=== PATIENT | female | born 1955 | race Caucasian/White ===

== ENCOUNTER 2017-11-25 14:53 | Inpatient (IN) | payer OTHER ==
[2017-11-25] MEDS ORDERED: Lactated Ringers 1,000 ML IV SCH (15:30)
--- NOTE | 2017-11-25 15:59 | CR ---
EXAMINATION: Two-view chest (PA and Lateral views). HISTORY: Shortness of breath. FINDINGS: The trachea is midline. The cardiomediastinal silhouette is within normal limits. No pulmonary infilt rates, effusions or pneumothorax. Mild interstitial prominence. Osseous structures appear unremarkable. IMPRESSION: No acute cardiopulmonary process.
[2017-11-25 16:11] LABS: CHLORIDE,CL 104 mmol/L (98-107); SODIUM,NA 141 mmol/L (136-145)
--- NOTE | 2017-11-25 16:17 | EDM.PDOC ---
ED HPI GENERAL MEDICAL PROBLEM - General Chief Complaint: Cardiovascular Problem Stated Complaint: SOB, RACING HEART Time Seen by Provider: 11/25/17 14:53 Source of Information: Reports: Patient History Limitations: Reports: No Limitations - History of Present Illness INITIAL COMMENTS - FREE TEXT/NARRATIVE: HISTORY AND PHYSICAL: History of present illness: [Patient comes to the emergency room complaining of shortness of breath and dizziness. Her symptoms have been going on for the past couple of months but have worsened over the past week. Her is also in the emergency room today with similar complaints. She reports they put a new furnace in their home in the past couple of months and they wonder if this could be contributing to her symptoms. Has had no fever or chills. No recent illness, infections or injuries. No headaches, runny nose or sore throat. No muscle aches or joint pain. Denies abdominal pain, nausea and vomiting. No rectal bleeding. Has had harder stools over the past couple of days, but no constipation. No diarrhea. Had one large dark black tarry sticky stool yesterday. No blood mixed in stool. History of anxiety for which she takes Paxil daily. She follows with Milli Parikh as needed. Smokes 1 ppd. ] Review of systems: As per history of present illness and below otherwise all systems reviewed and negative. Past medical history: As per history of present illness and as reviewed below otherwise noncontributory. Surgical history: As per history of present illness and as reviewed below otherwise noncontributory. Social history: No reported history of drug or alcohol abuse. Family history: As per history of present illness and as reviewed below otherwise noncontributory. Physical exam: HEENT: Atraumatic, normocephalic. Oral mucous membranes are pink and dry. Neck supple, no lymphadenopathy. Trachea midline. Lungs: Clear to auscultation, breath sounds equal bilaterally. Heart: S1S2, regular rhythm, rate 104. negative for clicks or murmur. Abdomen: Bowel sounds are normoactive throughout. Soft, nondistended, nontender. Negative for masses, guarding or rebound. No hepatosplenomegaly. Negative for costovertebral tenderness. Pelvis: Stable nontender. Genitourinary: Deferred. Rectal: Normal tone. Moderate amount of hard medium brown stool in vault. No blood in rectum. SFOB positive. Extremities: Atraumatic, no swelling or cyanosis to feet or lower legs. Neurovascular unremarkable. Neuro: Awake, alert, oriented. Motor and sensory unremarkable throughout. Exam nonfocal. Diagnostics: [CBC, CMP, UA, influenza swab, urine drug screen, EKG, chest x-ray, stool for occult blood, lactate, carboxyhemoglobin] Therapeutics: [1 L of lactated Ringer's at 500mL per hour] Impression: [anemia GI bleed] Plan: [Chest x-ray is clear. EKG shows sinus tachycardia with a rate of 104. Hemoglobin 6.3, white blood cell count 8.0. Potassium 3.0. Urine drug screen negative, urinalysis is unremarkable. Carboxyhemoglobin is a 8.5 which is within normal limits. Lactate 2.0. 2 units of PRBCs are ordered and pending at the time of this dictation. Orthostatic vital signs are pending. Patient's labs in condition reviewed with Dr. Cortez who agrees to accept patient to inpatient MedSurg unit. Patient is in agreement with today's discussion. All questions are answered and concerns are addressed.] Definitive disposition and diagnosis as appropriate pending reevaluation and review of above. - Related Data Allergies Allergy/AdvReac Type Severity Reaction Status Date / Time clarithromycin [From Biaxin] Allergy Other Verified 11/25/17 15:00 Penicillins Allergy Rash Verified 11/25/17 15:00 Home Meds: Home Meds PARoxetine [Paxil] 10 mg PO DAILY 11/25/17 [History] Past Medical History HEENT History: Reports: Impaired Vision Cardiovascular History: Reports: None Respiratory History: Reports: None Gastrointestinal History: Reports: None Genitourinary History: Reports: None SPINNING DOFFER History: Reports: None Musculoskeletal History: Reports: None Neurological History: Reports: None Psychiatric History: Reports: Anxiety Endocrine/Metabolic History: Reports: None Hematologic History: Reports: None Immunologic History: Reports: None Oncologic (Cancer) History: Reports: None Dermatologic History: Reports: None - Infectious Disease History Infectious Disease History: Reports: Chicken Pox, Measles - Past Surgical History Head Surgeries/Procedures: Reports: None HEENT Surgical History: Reports: None Cardiovascular Surgical History: Reports: None Respiratory Surgical History: Reports: None GI Surgical History: Reports: None Female Surgical History: Reports: Hysterectomy, Other (See Below) Other Female Surgeries/Procedures: ovarian cyst Endocrine Surgical History: Reports: None Neurological Surgical History: Reports: None Musculoskeletal Surgical History: Reports: None Oncologic Surgical History: Reports: None Dermatological Surgical History: Reports: None Social & Family History - Family History Family Medical History: Noncontributory - Tobacco Use Smoking Status *Q: Current Every Day Smoker Years of Tobacco use: 45 Packs/Tins Daily: 1 - Caffeine Use Caffeine Use: Reports: Energy Drinks - Recreational Drug Use Recreational Drug Use: No ED ROS GENERAL - Review of Systems Review Of Systems: ROS reveals no pertinent complaints other than HPI. ED EXAM, GENERAL - Physical Exam Exam: See Below Course - Vital Signs Last Recorded V/S: Last Vital Signs Temp 97.3 F 11/25/17 15:01 Pulse 93 11/25/17 16:30 Resp 20 11/25/17 16:30 BP 113/67 11/25/17 16:30 Pulse Ox 100 11/25/17 16:30 Orthostatic Blood Pressure [ 122/68 Standing] Orthostatic Blood Pressure [ 130/64 Sitting] Orthostatic Blood Pressure [ 124/81 Supine] - Orders/Labs/Meds Orders: Active Orders 24 hr Category Date Time Status EKG Documentation Completion [RC] STAT Care 11/25/17 15:02 Active Orthostatic Vital Signs [RC] ASDIRECTED Care 11/25/17 17:27 Active DRUG SCREEN, URINE [URCHEM] Stat Lab 11/25/17 16:31 Ordered INFLUENZA A+B AG SCREEN [RM] Stat Lab 11/25/17 16:33 Ordered RED BLOOD CELLS LP [BBK] Stat Lab 11/25/17 16:25 Results TYPE AND SCREEN [BBK] Stat Lab 11/25/17 16:25 Results UA W/O MICROSCOPIC [URIN] Stat Lab 11/25/17 16:31 Ordered Lactated Ringers [Ringers, Lactated] 1,000 ml Med 11/25/17 15:30 Active IV .BOLUS Transfuse PRBC [Transfuse Red Blood Cells] [COMM] Stat Oth 11/25/17 17:28 Ordered Medication Orders Lactated Ringer's (Ringers, Lactated) 1,000 mls @ 500 mls/hr IV .BOLUS KEYSHA Last Admin: 11/25/17 15:29 Dose: 500 mls/hr Labs: Laboratory Tests 11/25/17 11/25/17 11/25/17 Range/Units 15:20 15:20 15:20 WBC 8.01 (4.0-11.0) K/uL RBC 2.38 L (4.30-5.90) M/uL Hgb 6.3 L (12.0-16.0) g/dL Hct 19.4 L (36.0-46.0) % MCV 81.5 (80.0-98.0) fL MCH 26.5 L (27.0-32.0) pg MCHC 32.5 (31.0-37.0) g/dL RDW Std Deviation 42.8 (28.0-62.0) fl RDW Coeff of [place] 14 (11.0-15.0) % Plt Count 411 H (150-400) K/uL MPV 9.00 (7.40-12.00) fL Neut % (Auto) 72.7 (48.0-80.0) % Lymph % (Auto) 18.0 (16.0-40.0) % Iron % (Auto) 7.6 (0.0-15.0) % Eos % (Auto) 1.6 (0.0-7.0) % Baso % (Auto) 0.1 (0.0-1.5) % Neut # (Auto) 5.8 H (1.4-5.7) K/uL Lymph # (Auto) 1.4 (0.6-2.4) K/uL Iron # (Auto) 0.6 (0.0-0.8) K/uL Eos # (Auto) 0.1 (0.0-0.7) K/uL Baso # (Auto) 0.0 (0.0-0.1) K/uL Nucleated RBC % 0.0 /100WBC Nucleated RBCs # 0 K/uL ABG Carboxyhemoglobin 8.5 (0-15) % Lactate 2.0 (0.20-2.00) mmol/L Sodium 141 (136-145) mmol/L Potassium 3.0 L (3.5-5.1) mmol/L Chloride 104 (98-107) mmol/L Carbon Dioxide 23.4 (21.0-32.0) mmol/L BUN 17 (7.0-18.0) mg/dL Creatinine 0.8 (0.6-1.0) mg/dL Est Cr Clr Drug Dosing 66.10 mL/min Estimated GFR (MDRD) > 60.0 ml/min Glucose 113 H (74-106) mg/dL Calcium 9.0 (8.5-10.1) mg/dL Total Bilirubin 0.3 (0.2-1.0) mg/dL AST 13 L (15-37) IU/L ALT 16 (14-63) IU/L Alkaline Phosphatase 62 (46-116) U/L Total Protein 5.9 L (6.4-8.2) g/dL Albumin 3.0 L (3.4-5.0) g/dL Globulin 2.9 (2.0-3.5) g/dL Albumin/Globulin Ratio 1.0 L (1.3-2.8) Urine Color Urine Appearance Urine pH (5.0-8.0) Ur Specific [place] (1.001-1.035) Urine Protein (NEGATIVE) mg/dL Urine Glucose (UA) (NEGATIVE) mg/dL Urine Ketones (NEGATIVE) mg/dL Urine Occult Blood (NEGATIVE) Urine Nitrite (NEGATIVE) Urine Bilirubin (NEGATIVE) Urine Urobilinogen (<2.0) EU/dL Ur Leukocyte Esterase (NEGATIVE) Urine Opiates Screen (NEGATIVE) Ur Oxycodone Screen (NEGATIVE) Urine Methadone Screen (NEGATIVE) Ur Barbiturates Screen (NEGATIVE) Ur Phencyclidine Scrn (NEGATIVE) Ur Amphetamine Screen (NEGATIVE) U Methamphetamines Scrn (NEGATIVE) U Benzodiazepines Scrn (NEGATIVE) U Cocaine Metab Screen (NEGATIVE) U Marijuana (THC) Screen (NEGATIVE) Blood Type Antibody Screen Crossmatch 11/25/17 11/25/17 11/25/17 Range/Units 16:25 16:31 16:31 WBC (4.0-11.0) K/uL RBC (4.30-5.90) M/uL Hgb (12.0-16.0) g/dL Hct (36.0-46.0) % MCV (80.0-98.0) fL MCH (27.0-32.0) pg MCHC (31.0-37.0) g/dL RDW Std Deviation (28.0-62.0) fl RDW Coeff of [place] (11.0-15.0) % Plt Count (150-400) K/uL MPV (7.40-12.00) fL Neut % (Auto) (48.0-80.0) % Lymph % (Auto) (16.0-40.0) % Iron % (Auto) (0.0-15.0) % Eos % (Auto) (0.0-7.0) % Baso % (Auto) (0.0-1.5) % Neut # (Auto) (1.4-5.7) K/uL Lymph # (Auto) (0.6-2.4) K/uL Iron # (Auto) (0.0-0.8) K/uL Eos # (Auto) (0.0-0.7) K/uL Baso # (Auto) (0.0-0.1) K/uL Nucleated RBC % /100WBC Nucleated RBCs # K/uL ABG Carboxyhemoglobin (0-15) % Lactate (0.20-2.00) mmol/L Sodium (136-145) mmol/L Potassium (3.5-5.1) mmol/L Chloride (98-107) mmol/L Carbon Dioxide (21.0-32.0) mmol/L BUN (7.0-18.0) mg/dL Creatinine (0.6-1.0) mg/dL Est Cr Clr Drug Dosing mL/min Estimated GFR (MDRD) ml/min Glucose (74-106) mg/dL Calcium (8.5-10.1) mg/dL Total Bilirubin (0.2-1.0) mg/dL AST (15-37) IU/L ALT (14-63) IU/L Alkaline Phosphatase (46-116) U/L Total Protein (6.4-8.2) g/dL Albumin (3.4-5.0) g/dL Globulin (2.0-3.5) g/dL Albumin/Globulin Ratio (1.3-2.8) Urine Color YELLOW Urine Appearance SLT CLOUDY Urine pH 5.5 (5.0-8.0) Ur Specific [place] 1.020 (1.001-1.035) Urine Protein NEGATIVE (NEGATIVE) mg/dL Urine Glucose (UA) NEGATIVE (NEGATIVE) mg/dL Urine Ketones NEGATIVE (NEGATIVE) mg/dL Urine Occult Blood TRACE-INTACT (NEGATIVE) Urine Nitrite NEGATIVE (NEGATIVE) Urine Bilirubin NEGATIVE (NEGATIVE) Urine Urobilinogen 0.2 (<2.0) EU/dL Ur Leukocyte Esterase SMALL (NEGATIVE) Urine Opiates Screen NEGATIVE (NEGATIVE) Ur Oxycodone Screen NEGATIVE (NEGATIVE) Urine Methadone Screen NEGATIVE (NEGATIVE) Ur Barbiturates Screen NEGATIVE (NEGATIVE) Ur Phencyclidine Scrn NEGATIVE (NEGATIVE) Ur Amphetamine Screen NEGATIVE (NEGATIVE) U Methamphetamines Scrn NEGATIVE (NEGATIVE) U Benzodiazepines Scrn NEGATIVE (NEGATIVE) U Cocaine Metab Screen NEGATIVE (NEGATIVE) U Marijuana (THC) Screen NEGATIVE (NEGATIVE) Blood Type A POSITIVE Antibody Screen NEGATIVE Crossmatch See Detail Meds: Medications Generic Name Dose Route Start Last Admin Trade Name Freq PRN Reason Stop Dose Admin Lactated Ringer's 1,000 mls @ 500 mls/hr 11/25/17 15:30 11/25/17 15:29 Ringers, Lactated IV 500 mls/hr .BOLUS KEYSHA Administration Departure - Departure Time of Disposition: 17:45 Disposition: Admitted As Inpatient 67 Condition: Good Clinical Impression: Anemia, GI bleed - My Orders Last 24 Hours: My Active Orders 11/25/17 15:02 EKG Documentation Completion [RC] STAT 11/25/17 15:30 Lactated Ringers [Ringers, Lactated] 1,000 ml IV .BOLUS 11/25/17 16:25 RED BLOOD CELLS LP [BBK] Stat TYPE AND SCREEN [BBK] Stat 11/25/17 16:31 DRUG SCREEN, URINE [URCHEM] Stat UA W/O MICROSCOPIC [URIN] Stat 11/25/17 16:33 INFLUENZA A+B AG SCREEN [RM] Stat 11/25/17 17:27 Orthostatic Vital Signs [RC] ASDIRECTED 11/25/17 17:28 Transfuse PRBC [Transfuse Red Blood Cells] [COMM] Stat - Assessment/Plan Last 24 Hours: My Active Orders 11/25/17 15:02 EKG Documentation Completion [RC] STAT 11/25/17 15:30 Lactated Ringers [Ringers, Lactated] 1,000 ml IV .BOLUS 11/25/17 16:25 RED BLOOD CELLS LP [BBK] Stat TYPE AND SCREEN [BBK] Stat 11/25/17 16:31 DRUG SCREEN, URINE [URCHEM] Stat UA W/O MICROSCOPIC [URIN] Stat 11/25/17 16:33 INFLUENZA A+B AG SCREEN [RM] Stat 11/25/17 17:27 Orthostatic Vital Signs [RC] ASDIRECTED 11/25/17 17:28 Transfuse PRBC [Transfuse Red Blood Cells] [COMM] Stat
[2017-11-25] MEDS ORDERED: Pantoprazole 40 MG Vial IVPUSH ONE (18:05)
[2017-11-25] MEDS ORDERED: Sodium Chloride 0.9% with KCl 1,000 ML IV SCH (18:15)
--- NOTE | 2017-11-25 18:18 | PCM.HP ---
H&P History of Present Illness - General Admit Problem/Dx: Admission Diagnosis/Problem Admission Diagnosis/Problem Anemia - History of Present Illness Initial Comments - Free Text/Narative: 62 yo female who presents with dizziness, shortness of breath and palpitations. She reported a large dark tarry stool yesterday. She denies any abdominal pain, nausea or vomiting. She admits to taking aspirin occasionally. She denies any alcohol use. She has never had endoscopy. She was noted in the ED to have a Hgb of 6.1. She has a history of anxiety disorder and reports she is quite anxious about being admitted to the hospital. - Related Data Allergies/Adverse Reactions: Allergies Allergy/AdvReac Type Severity Reaction Status Date / Time clarithromycin [From Biaxin] Allergy Other Verified 11/25/17 15:00 Penicillins Allergy Rash Verified 11/25/17 15:00 Home Medications: Home Meds LORazepam 1 mg PO BID PRN 11/25/17 [History] PARoxetine [Paxil] 10 mg PO DAILY 11/25/17 [History] Past Medical History HEENT History: Reports: Impaired Vision Cardiovascular History: Reports: None Respiratory History: Reports: None Gastrointestinal History: Reports: None Genitourinary History: Reports: None UX DESIGN LEAD History: Reports: None Musculoskeletal History: Reports: None Neurological History: Reports: None Psychiatric History: Reports: Anxiety Endocrine/Metabolic History: Reports: None Hematologic History: Reports: None Immunologic History: Reports: None Oncologic (Cancer) History: Reports: None Dermatologic History: Reports: None - Infectious Disease History Infectious Disease History: Reports: Chicken Pox, Measles - Past Surgical History Head Surgeries/Procedures: Reports: None HEENT Surgical History: Reports: None Cardiovascular Surgical History: Reports: None Respiratory Surgical History: Reports: None GI Surgical History: Reports: None Female Surgical History: Reports: Hysterectomy, Other (See Below) Other Female Surgeries/Procedures: ovarian cyst Endocrine Surgical History: Reports: None Neurological Surgical History: Reports: None Musculoskeletal Surgical History: Reports: None Oncologic Surgical History: Reports: None Dermatological Surgical History: Reports: None Social & Family History - Family History Family Medical History: Noncontributory - Tobacco Use Smoking Status *Q: Current Every Day Smoker Years of Tobacco use: 45 Packs/Tins Daily: 1 - Caffeine Use Caffeine Use: Reports: Energy Drinks - Recreational Drug Use Recreational Drug Use: No H&P Review of Systems - Review of Systems: Review Of Systems: ROS reveals no pertinent complaints other than HPI. Exam - Exam Exam: See Below - Vital Signs Vital Signs: Last Vital Signs Temp 36.3 C 11/25/17 15:01 Pulse 93 11/25/17 16:30 Resp 20 11/25/17 16:30 BP 113/67 11/25/17 16:30 Pulse Ox 100 11/25/17 16:30 Orthostatic Blood Pressure [ 122/68 Standing] Orthostatic Blood Pressure [ 130/64 Sitting] Orthostatic Blood Pressure [ 124/81 Supine] Weight: 56.699 kg - Exam General: Alert, Oriented HEENT: Mucosa Moist & [place] Lungs: Clear to Auscultation, Normal Respiratory Effort Cardiovascular: Regular Rate, Regular Rhythm GI/Abdominal Exam: Soft, Non-Tender Extremities: Non-Tender, No Pedal Edema Skin: Warm, Dry, Intact - Patient Data Lab Results Last 24 hrs: Laboratory Results - last 24 hr 11/25/17 11/25/17 11/25/17 Range/Units 15:20 15:20 15:20 WBC 8.01 (4.0-11.0) K/uL RBC 2.38 L (4.30-5.90) M/uL Hgb 6.3 L (12.0-16.0) g/dL Hct 19.4 L (36.0-46.0) % MCV 81.5 (80.0-98.0) fL MCH 26.5 L (27.0-32.0) pg MCHC 32.5 (31.0-37.0) g/dL RDW Std Deviation 42.8 (28.0-62.0) fl RDW Coeff of [place] 14 (11.0-15.0) % Plt Count 411 H (150-400) K/uL MPV 9.00 (7.40-12.00) fL Neut % (Auto) 72.7 (48.0-80.0) % Lymph % (Auto) 18.0 (16.0-40.0) % [place] % (Auto) 7.6 (0.0-15.0) % Eos % (Auto) 1.6 (0.0-7.0) % Baso % (Auto) 0.1 (0.0-1.5) % Neut # (Auto) 5.8 H (1.4-5.7) K/uL Lymph # (Auto) 1.4 (0.6-2.4) K/uL [place] # (Auto) 0.6 (0.0-0.8) K/uL Eos # (Auto) 0.1 (0.0-0.7) K/uL Baso # (Auto) 0.0 (0.0-0.1) K/uL Nucleated RBC % 0.0 /100WBC Nucleated RBCs # 0 K/uL ABG Carboxyhemoglobin 8.5 (0-15) % Lactate 2.0 (0.20-2.00) mmol/L Sodium 141 (136-145) mmol/L Potassium 3.0 L (3.5-5.1) mmol/L Chloride 104 (98-107) mmol/L Carbon Dioxide 23.4 (21.0-32.0) mmol/L BUN 17 (7.0-18.0) mg/dL Creatinine 0.8 (0.6-1.0) mg/dL Est Cr Clr Drug Dosing 66.10 mL/min Estimated GFR (MDRD) > 60.0 ml/min Glucose 113 H (74-106) mg/dL Calcium 9.0 (8.5-10.1) mg/dL Total Bilirubin 0.3 (0.2-1.0) mg/dL AST 13 L (15-37) IU/L ALT 16 (14-63) IU/L Alkaline Phosphatase 62 (46-116) U/L Total Protein 5.9 L (6.4-8.2) g/dL Albumin 3.0 L (3.4-5.0) g/dL Globulin 2.9 (2.0-3.5) g/dL Albumin/Globulin Ratio 1.0 L (1.3-2.8) Urine Color Urine Appearance Urine pH (5.0-8.0) Ur Specific [place] (1.001-1.035) Urine Protein (NEGATIVE) mg/dL Urine Glucose (UA) (NEGATIVE) mg/dL Urine Ketones (NEGATIVE) mg/dL Urine Occult Blood (NEGATIVE) Urine Nitrite (NEGATIVE) Urine Bilirubin (NEGATIVE) Urine Urobilinogen (<2.0) EU/dL Ur Leukocyte Esterase (NEGATIVE) Urine Opiates Screen (NEGATIVE) Ur Oxycodone Screen (NEGATIVE) Urine Methadone Screen (NEGATIVE) Ur Barbiturates Screen (NEGATIVE) Ur Phencyclidine Scrn (NEGATIVE) Ur Amphetamine Screen (NEGATIVE) U Methamphetamines Scrn (NEGATIVE) U Benzodiazepines Scrn (NEGATIVE) U Cocaine Metab Screen (NEGATIVE) U Marijuana (THC) Screen (NEGATIVE) Blood Type Antibody Screen Crossmatch 11/25/17 11/25/17 11/25/17 Range/Units 16:25 16:31 16:31 WBC (4.0-11.0) K/uL RBC (4.30-5.90) M/uL Hgb (12.0-16.0) g/dL Hct (36.0-46.0) % MCV (80.0-98.0) fL MCH (27.0-32.0) pg MCHC (31.0-37.0) g/dL RDW Std Deviation (28.0-62.0) fl RDW Coeff of [place] (11.0-15.0) % Plt Count (150-400) K/uL MPV (7.40-12.00) fL Neut % (Auto) (48.0-80.0) % Lymph % (Auto) (16.0-40.0) % [place] % (Auto) (0.0-15.0) % Eos % (Auto) (0.0-7.0) % Baso % (Auto) (0.0-1.5) % Neut # (Auto) (1.4-5.7) K/uL Lymph # (Auto) (0.6-2.4) K/uL [place] # (Auto) (0.0-0.8) K/uL Eos # (Auto) (0.0-0.7) K/uL Baso # (Auto) (0.0-0.1) K/uL Nucleated RBC % /100WBC Nucleated RBCs # K/uL ABG Carboxyhemoglobin (0-15) % Lactate (0.20-2.00) mmol/L Sodium (136-145) mmol/L Potassium (3.5-5.1) mmol/L Chloride (98-107) mmol/L Carbon Dioxide (21.0-32.0) mmol/L BUN (7.0-18.0) mg/dL Creatinine (0.6-1.0) mg/dL Est Cr Clr Drug Dosing mL/min Estimated GFR (MDRD) ml/min Glucose (74-106) mg/dL Calcium (8.5-10.1) mg/dL Total Bilirubin (0.2-1.0) mg/dL AST (15-37) IU/L ALT (14-63) IU/L Alkaline Phosphatase (46-116) U/L Total Protein (6.4-8.2) g/dL Albumin (3.4-5.0) g/dL Globulin (2.0-3.5) g/dL Albumin/Globulin Ratio (1.3-2.8) Urine Color YELLOW Urine Appearance SLT CLOUDY Urine pH 5.5 (5.0-8.0) Ur Specific [place] 1.020 (1.001-1.035) Urine Protein NEGATIVE (NEGATIVE) mg/dL Urine Glucose (UA) NEGATIVE (NEGATIVE) mg/dL Urine Ketones NEGATIVE (NEGATIVE) mg/dL Urine Occult Blood TRACE-INTACT (NEGATIVE) Urine Nitrite NEGATIVE (NEGATIVE) Urine Bilirubin NEGATIVE (NEGATIVE) Urine Urobilinogen 0.2 (<2.0) EU/dL Ur Leukocyte Esterase SMALL (NEGATIVE) Urine Opiates Screen NEGATIVE (NEGATIVE) Ur Oxycodone Screen NEGATIVE (NEGATIVE) Urine Methadone Screen NEGATIVE (NEGATIVE) Ur Barbiturates Screen NEGATIVE (NEGATIVE) Ur Phencyclidine Scrn NEGATIVE (NEGATIVE) Ur Amphetamine Screen NEGATIVE (NEGATIVE) U Methamphetamines Scrn NEGATIVE (NEGATIVE) U Benzodiazepines Scrn NEGATIVE (NEGATIVE) U Cocaine Metab Screen NEGATIVE (NEGATIVE) U Marijuana (THC) Screen NEGATIVE (NEGATIVE) Blood Type A POSITIVE Antibody Screen NEGATIVE Crossmatch See Detail Result Diagrams: 11/25/17 15:20 11/25/17 15:20 Phuc Results Last 24 hrs: Microbiology 11/25/17 16:33 Influenza Type A Antigen Screen - Final Nasopharyngeal Swab NEGATIVE INFLUENZA A VIRUS AG Influenza Type B Antigen Screen - Final NEGATIVE INFLUENZA B VIRUS AG Problem List Initiated/Reviewed/Updated: Yes Orders Last 24hrs: Active Orders 24 hr Category Date Time Status Patient Status [ADT] Stat ADT 11/25/17 17:36 Active EKG Documentation Completion [RC] STAT Care 11/25/17 15:02 Active Notify Provider Consults [RC] ASDIRECTED Care 11/25/17 18:12 Ordered Orthostatic Vital Signs [RC] ASDIRECTED Care 11/25/17 17:27 Active Oxygen Therapy [RC] PRN Care 11/25/17 18:11 Ordered Up ad [place] [RC] ASDIRECTED Care 11/25/17 18:11 Ordered VTE/DVT Education [RC] PER UNIT ROUTINE Care 11/25/17 18:11 Ordered Vital Signs [RC] Q4H Care 11/25/17 18:11 Ordered Consult to Physician [CONS] Routine Cons 11/25/17 18:11 Ordered Nothing per Oral Now Diet [DIET] Diet 11/25/17 Breakfast Ordered CBC W/O DIFF,HEMOGRAM [HEME] AM Lab 11/26/17 05:11 Ordered COMPREHENSIVE METABOLIC PN,CMP [CHEM] AM Lab 11/26/17 05:11 Ordered DRUG SCREEN, URINE [URCHEM] Stat Lab 11/25/17 16:31 Ordered HGB [HEMOGLOBIN] [HEME] Routine Lab 11/25/17 22:00 Ordered INFLUENZA A+B AG SCREEN [RM] Stat Lab 11/25/17 16:33 Ordered RED BLOOD CELLS LP [BBK] Stat Lab 11/25/17 16:25 Results TYPE AND SCREEN [BBK] Stat Lab 11/25/17 16:25 Results UA W/O MICROSCOPIC [URIN] Stat Lab 11/25/17 16:31 Ordered LORazepam [Ativan] Med 11/25/17 18:13 Ordered 0.5 mg IVPUSH Q4H PRN Lactated Ringers [Ringers, Lactated] 1,000 ml Med 11/25/17 15:30 Active IV .BOLUS Pantoprazole [ProTONIX IV] 80 mg Med 11/25/17 18:15 Ordered Sodium Chloride 0.9% [Normal Saline] 100 ml IV Q10H Sodium Chloride 0.9% with KCl 40 mEq @ Enter Rate (1000 Med 11/25/17 18:15 Ordered mL) Sodium Chloride 0.9% with KCl [Normal Saline with 40 mEq KCl] 1,000 ml IV ASDIRECTED Sucralfate [Carafate] Med 11/25/17 18:15 Ordered 1 gm PO Q6H Sequential Compression Device [OM.PC] Per Unit Routine Oth 11/25/17 18:11 Ordered Transfuse PRBC [Transfuse Red Blood Cells] [COMM] Stat Oth 11/25/17 17:28 Ordered Resuscitation Status Routine Resus Stat 11/25/17 18:11 Ordered Medication Orders Lactated Ringer's (Ringers, Lactated) 1,000 mls @ 500 mls/hr IV .BOLUS [facility] Last Admin: 11/25/17 15:29 Dose: 500 mls/hr Pantoprazole Sodium 80 mg/ (Sodium Chloride) 100 mls @ 10 mls/hr IV Q10H KEYSHA Potassium Chloride/Sodium Chloride (Normal Saline With 40 Meq Kcl) 1,000 mls @ 150 mls/hr IV ASDIRECTED [facility] Stop: 11/26/17 00:54 Sucralfate (Carafate) 1 gm PO Q6H [facility] Assessment/Plan Comment:: 62 yo female with suspect upper GI bleed, anemia from acute bleed, and hypokalemia. Dr. Cowan has been consulted regarding EGD. We will transfuse two units of pRBC and follow her Hgb. We will treat with protonix drip and carafate. We will replace her potassium. Patient is NPO.
[2017-11-25] MEDS: Sucralfate Suspension 1 GM/10 ML Cup PO SCH ×2 (18:42→23:44)
--- NOTE | 2017-11-25 19:03 | PCM.CONS ---
<Lacho Rubi Francois - Last Filed: 11/25/17 19:55> H&P History of Present Illness - General Date of Service: 11/25/17 Admit Problem/Dx: Admission Diagnosis/Problem Admission Diagnosis/Problem Anemia Source of Information: Patient, Family, Provider - History of Present Illness Initial Comments - Free Text/Narative: Mrs. Meier is a 62 yr old female who presented to the ER earlier today with her for symptoms of dizziness, nausea, and racing of her heart. These symptoms have been going on for about 1 week. There was nothing specific that changed today. She has also noted ongoing fatigue and SOB with exertion over the past week. She is unable to ambulate around her home without becoming short of breath. She did have a small bout of emesis without any blood appreciated. She recently noted darker stools that have been harder than normal. No bright red blood in her stool. Stools have been dark brown/black. She is passing flatus and denies diarrhea. Endorses history of heartburn. She has never had an endoscopy or colonoscopy before. She denies any abdominal pain. Denies frequent use of NSAIDs or blood thinners. She endorses being under a significant amount of stress in the last few months. She correlates this with her of 40+ yrs being diagnosed with lung cancer. - Related Data Allergies/Adverse Reactions: Allergies Allergy/AdvReac Type Severity Reaction Status Date / Time clarithromycin [From Biaxin] Allergy Other Verified 11/25/17 15:00 Penicillins Allergy Rash Verified 11/25/17 15:00 Home Medications: Home Meds LORazepam 1 mg PO BID PRN 11/25/17 [History] PARoxetine [Paxil] 10 mg PO DAILY 11/25/17 [History] Past Medical History HEENT History: Reports: Impaired Vision Cardiovascular History: Reports: None Respiratory History: Reports: None Gastrointestinal History: Reports: None Genitourinary History: Reports: None MAINTENANCE MAN History: Reports: None Musculoskeletal History: Reports: None Neurological History: Reports: None Psychiatric History: Reports: Anxiety Endocrine/Metabolic History: Reports: None Hematologic History: Reports: None Immunologic History: Reports: None Oncologic (Cancer) History: Reports: None Dermatologic History: Reports: None - Infectious Disease History Infectious Disease History: Reports: Chicken Pox, Measles - Past Surgical History Head Surgeries/Procedures: Reports: None (Prior abdominal hysterectomy for cystic disease.) HEENT Surgical History: Reports: None Cardiovascular Surgical History: Reports: None Respiratory Surgical History: Reports: None GI Surgical History: Reports: None Female Surgical History: Reports: Hysterectomy, Other (See Below) Other Female Surgeries/Procedures: ovarian cyst Endocrine Surgical History: Reports: None Neurological Surgical History: Reports: None Musculoskeletal Surgical History: Reports: None Oncologic Surgical History: Reports: None Dermatological Surgical History: Reports: None - History Comment History Comment: History of anxiety. Denies any prior cardiac or pulmonary diseases or problems. No hisotry of diabetes or HTN. Social & Family History - Family History Family Medical History: Noncontributory (Denies any known bleeding disorders. No known history of GI problems or GI malignancy.) - Tobacco Use Smoking Status *Q: Current Every Day Smoker Years of Tobacco use: 45 Packs/Tins Daily: 1 - Caffeine Use Caffeine Use: Reports: Energy Drinks - Recreational Drug Use Recreational Drug Use: No H&P Review of Systems - Review of Systems: Review Of Systems: See Below General: Reports: Weakness, Fatigue, Decreased Appetite, Other (Intentional weight loss. ) Pulmonary: Reports: Shortness of Breath Cardiovascular: Reports: Palpitations, Dyspnea on Exertion Gastrointestinal: Reports: Black Stool, Constipation, Nausea Musculoskeletal: Reports: Foot Pain Psychiatric: Reports: Anxiety Neurological: Reports: Dizziness, Weakness Hematologic/Lymphatic: Reports: Other (Denies easy bruising, known bleeding disorders, or taking blooding thinners other than aspirin. ) Exam - Exam Exam: See Below - Vital Signs Vital Signs: Last Vital Signs Temp 36.3 C 11/25/17 15:01 Pulse 93 11/25/17 16:30 Resp 20 11/25/17 16:30 BP 113/67 11/25/17 16:30 Pulse Ox 100 11/25/17 16:30 Orthostatic Blood Pressure [ 122/68 Standing] Orthostatic Blood Pressure [ 130/64 Sitting] Orthostatic Blood Pressure [ 124/81 Supine] Weight: 125 lb - Exam General: Alert, Oriented, Other (Midly anxious with pressured speech. ) HEENT: EOMI, Pupils Equal Neck: Supple, Trachea Midline Lungs: Clear to Auscultation, Normal Respiratory Effort Cardiovascular: Regular Rate, Regular Rhythm GI/Abdominal Exam: Soft, Non-Tender, No Distention, No Mass, Other (Prior midline laparotomy scar, well healed. ) Extremities: Normal Range of Motion, Non-Tender, No Pedal Edema Skin: Warm, Dry, Intact Psychiatric: Anxious - Patient Data Lab Results Last 24 hrs: Laboratory Results - last 24 hr 11/25/17 11/25/17 11/25/17 Range/Units 15:20 15:20 15:20 WBC 8.01 (4.0-11.0) K/uL RBC 2.38 L (4.30-5.90) M/uL Hgb 6.3 L (12.0-16.0) g/dL Hct 19.4 L (36.0-46.0) % MCV 81.5 (80.0-98.0) fL MCH 26.5 L (27.0-32.0) pg MCHC 32.5 (31.0-37.0) g/dL RDW Std Deviation 42.8 (28.0-62.0) fl RDW Coeff of [place] 14 (11.0-15.0) % Plt Count 411 H (150-400) K/uL MPV 9.00 (7.40-12.00) fL Neut % (Auto) 72.7 (48.0-80.0) % Lymph % (Auto) 18.0 (16.0-40.0) % [place] % (Auto) 7.6 (0.0-15.0) % Eos % (Auto) 1.6 (0.0-7.0) % Baso % (Auto) 0.1 (0.0-1.5) % Neut # (Auto) 5.8 H (1.4-5.7) K/uL Lymph # (Auto) 1.4 (0.6-2.4) K/uL [place] # (Auto) 0.6 (0.0-0.8) K/uL Eos # (Auto) 0.1 (0.0-0.7) K/uL Baso # (Auto) 0.0 (0.0-0.1) K/uL Nucleated RBC % 0.0 /100WBC Nucleated RBCs # 0 K/uL ABG Carboxyhemoglobin 8.5 (0-15) % Lactate 2.0 (0.20-2.00) mmol/L Sodium 141 (136-145) mmol/L Potassium 3.0 L (3.5-5.1) mmol/L Chloride 104 (98-107) mmol/L Carbon Dioxide 23.4 (21.0-32.0) mmol/L BUN 17 (7.0-18.0) mg/dL Creatinine 0.8 (0.6-1.0) mg/dL Est Cr Clr Drug Dosing 66.10 mL/min Estimated GFR (MDRD) > 60.0 ml/min Glucose 113 H (74-106) mg/dL Calcium 9.0 (8.5-10.1) mg/dL Total Bilirubin 0.3 (0.2-1.0) mg/dL AST 13 L (15-37) IU/L ALT 16 (14-63) IU/L Alkaline Phosphatase 62 (46-116) U/L Total Protein 5.9 L (6.4-8.2) g/dL Albumin 3.0 L (3.4-5.0) g/dL Globulin 2.9 (2.0-3.5) g/dL Albumin/Globulin Ratio 1.0 L (1.3-2.8) Urine Color Urine Appearance Urine pH (5.0-8.0) Ur Specific [place] (1.001-1.035) Urine Protein (NEGATIVE) mg/dL Urine Glucose (UA) (NEGATIVE) mg/dL Urine Ketones (NEGATIVE) mg/dL Urine Occult Blood (NEGATIVE) Urine Nitrite (NEGATIVE) Urine Bilirubin (NEGATIVE) Urine Urobilinogen (<2.0) EU/dL Ur Leukocyte Esterase (NEGATIVE) Urine Opiates Screen (NEGATIVE) Ur Oxycodone Screen (NEGATIVE) Urine Methadone Screen (NEGATIVE) Ur Barbiturates Screen (NEGATIVE) Ur Phencyclidine Scrn (NEGATIVE) Ur Amphetamine Screen (NEGATIVE) U Methamphetamines Scrn (NEGATIVE) U Benzodiazepines Scrn (NEGATIVE) U Cocaine Metab Screen (NEGATIVE) U Marijuana (THC) Screen (NEGATIVE) Blood Type Antibody Screen Crossmatch 11/25/17 11/25/17 11/25/17 Range/Units 16:25 16:31 16:31 WBC (4.0-11.0) K/uL RBC (4.30-5.90) M/uL Hgb (12.0-16.0) g/dL Hct (36.0-46.0) % MCV (80.0-98.0) fL MCH (27.0-32.0) pg MCHC (31.0-37.0) g/dL RDW Std Deviation (28.0-62.0) fl RDW Coeff of [place] (11.0-15.0) % Plt Count (150-400) K/uL MPV (7.40-12.00) fL Neut % (Auto) (48.0-80.0) % Lymph % (Auto) (16.0-40.0) % [place] % (Auto) (0.0-15.0) % Eos % (Auto) (0.0-7.0) % Baso % (Auto) (0.0-1.5) % Neut # (Auto) (1.4-5.7) K/uL Lymph # (Auto) (0.6-2.4) K/uL [place] # (Auto) (0.0-0.8) K/uL Eos # (Auto) (0.0-0.7) K/uL Baso # (Auto) (0.0-0.1) K/uL Nucleated RBC % /100WBC Nucleated RBCs # K/uL ABG Carboxyhemoglobin (0-15) % Lactate (0.20-2.00) mmol/L Sodium (136-145) mmol/L Potassium (3.5-5.1) mmol/L Chloride (98-107) mmol/L Carbon Dioxide (21.0-32.0) mmol/L BUN (7.0-18.0) mg/dL Creatinine (0.6-1.0) mg/dL Est Cr Clr Drug Dosing mL/min Estimated GFR (MDRD) ml/min Glucose (74-106) mg/dL Calcium (8.5-10.1) mg/dL Total Bilirubin (0.2-1.0) mg/dL AST (15-37) IU/L ALT (14-63) IU/L Alkaline Phosphatase (46-116) U/L Total Protein (6.4-8.2) g/dL Albumin (3.4-5.0) g/dL Globulin (2.0-3.5) g/dL Albumin/Globulin Ratio (1.3-2.8) Urine Color YELLOW Urine Appearance SLT CLOUDY Urine pH 5.5 (5.0-8.0) Ur Specific [place] 1.020 (1.001-1.035) Urine Protein NEGATIVE (NEGATIVE) mg/dL Urine Glucose (UA) NEGATIVE (NEGATIVE) mg/dL Urine Ketones NEGATIVE (NEGATIVE) mg/dL Urine Occult Blood TRACE-INTACT (NEGATIVE) Urine Nitrite NEGATIVE (NEGATIVE) Urine Bilirubin NEGATIVE (NEGATIVE) Urine Urobilinogen 0.2 (<2.0) EU/dL Ur Leukocyte Esterase SMALL (NEGATIVE) Urine Opiates Screen NEGATIVE (NEGATIVE) Ur Oxycodone Screen NEGATIVE (NEGATIVE) Urine Methadone Screen NEGATIVE (NEGATIVE) Ur Barbiturates Screen NEGATIVE (NEGATIVE) Ur Phencyclidine Scrn NEGATIVE (NEGATIVE) Ur Amphetamine Screen NEGATIVE (NEGATIVE) U Methamphetamines Scrn NEGATIVE (NEGATIVE) U Benzodiazepines Scrn NEGATIVE (NEGATIVE) U Cocaine Metab Screen NEGATIVE (NEGATIVE) U Marijuana (THC) Screen NEGATIVE (NEGATIVE) Blood Type A POSITIVE Antibody Screen NEGATIVE Crossmatch See Detail Result Diagrams: 11/25/17 15:20 11/25/17 15:20 Phuc Results Last 24 hrs: Microbiology 11/25/17 16:33 Influenza Type A Antigen Screen - Final Nasopharyngeal Swab NEGATIVE INFLUENZA A VIRUS AG Influenza Type B Antigen Screen - Final NEGATIVE INFLUENZA B VIRUS AG Consult PN Assessment/Plan Procedures: Procedures CT ABD & PELV 1/> REGNS (08/30/14) MRI LUMBAR SPINE W/O DYE (05/01/17) (1) Anemia SNOMED Code(s): 620580066 Code(s): D64.9 - ANEMIA, UNSPECIFIED Current Visit: Yes Comment: Suspected acute blood loss anemia secondary to an upper GI source. This may be either gastritis or an ulcer. At this time she has no active signs of bleeding. She is hemodynamically stable without tachycardia. She is not hypotensive. She is symptomatic. Admission HGB was 6.3. Plans to recieve 2 units RBCs. Problem List Initiated/Reviewed/Updated: Yes Plan: Continue cares per medicine primary. Full liquid diet okay now. NPO at midnight. Continue IVF. Trend hemoglobins and monitor hemodynamics closely. Based on the hydration she will be receiving, consider additional two units of RBCs on top of what is already ordered. If she remains stable overnight, plan for upper endoscopy 11/26/[address] Cowan. Risks and goals reviewed, consent obtained from patient. Requesting Provider: Dr. Cortez Date Consult Requested: 11/25/17 Reason for Consult: Concern for GI Bleed Patient History Reviewed: Yes Admission H&P Reviewed: Yes <Ajay Cowan - Last Filed: 11/25/17 20:14> H&P History of Present Illness - General Admit Problem/Dx: Admission Diagnosis/Problem Admission Diagnosis/Problem Anemia Exam - Vital Signs Vital Signs: Last Vital Signs Temp 97.6 F 11/25/17 20:06 Pulse 87 11/25/17 20:06 Resp 18 11/25/17 20:06 BP 125/64 11/25/17 20:06 Pulse Ox 99 11/25/17 20:06 Orthostatic Blood Pressure [ 106/59 Standing] Orthostatic Blood Pressure [ 108/57 Sitting] Orthostatic Blood Pressure [ 114/60 Supine] - Patient Data Lab Results Last 24 hrs: Laboratory Results - last 24 hr 11/25/17 11/25/17 11/25/17 Range/Units 15:20 15:20 15:20 WBC 8.01 (4.0-11.0) K/uL RBC 2.38 L (4.30-5.90) M/uL Hgb 6.3 L (12.0-16.0) g/dL Hct 19.4 L (36.0-46.0) % MCV 81.5 (80.0-98.0) fL MCH 26.5 L (27.0-32.0) pg MCHC 32.5 (31.0-37.0) g/dL RDW Std Deviation 42.8 (28.0-62.0) fl RDW Coeff of [place] 14 (11.0-15.0) % Plt Count 411 H (150-400) K/uL MPV 9.00 (7.40-12.00) fL Neut % (Auto) 72.7 (48.0-80.0) % Lymph % (Auto) 18.0 (16.0-40.0) % [place] % (Auto) 7.6 (0.0-15.0) % Eos % (Auto) 1.6 (0.0-7.0) % Baso % (Auto) 0.1 (0.0-1.5) % Neut # (Auto) 5.8 H (1.4-5.7) K/uL Lymph # (Auto) 1.4 (0.6-2.4) K/uL [place] # (Auto) 0.6 (0.0-0.8) K/uL Eos # (Auto) 0.1 (0.0-0.7) K/uL Baso # (Auto) 0.0 (0.0-0.1) K/uL Nucleated RBC % 0.0 /100WBC Nucleated RBCs # 0 K/uL ABG Carboxyhemoglobin 8.5 (0-15) % Lactate 2.0 (0.20-2.00) mmol/L Sodium 141 (136-145) mmol/L Potassium 3.0 L (3.5-5.1) mmol/L Chloride 104 (98-107) mmol/L Carbon Dioxide 23.4 (21.0-32.0) mmol/L BUN 17 (7.0-18.0) mg/dL Creatinine 0.8 (0.6-1.0) mg/dL Est Cr Clr Drug Dosing 66.10 mL/min Estimated GFR (MDRD) > 60.0 ml/min Glucose 113 H (74-106) mg/dL Calcium 9.0 (8.5-10.1) mg/dL Total Bilirubin 0.3 (0.2-1.0) mg/dL AST 13 L (15-37) IU/L ALT 16 (14-63) IU/L Alkaline Phosphatase 62 (46-116) U/L Total Protein 5.9 L (6.4-8.2) g/dL Albumin 3.0 L (3.4-5.0) g/dL Globulin 2.9 (2.0-3.5) g/dL Albumin/Globulin Ratio 1.0 L (1.3-2.8) Urine Color Urine Appearance Urine pH (5.0-8.0) Ur Specific [place] (1.001-1.035) Urine Protein (NEGATIVE) mg/dL Urine Glucose (UA) (NEGATIVE) mg/dL Urine Ketones (NEGATIVE) mg/dL Urine Occult Blood (NEGATIVE) Urine Nitrite (NEGATIVE) Urine Bilirubin (NEGATIVE) Urine Urobilinogen (<2.0) EU/dL Ur Leukocyte Esterase (NEGATIVE) Urine Opiates Screen (NEGATIVE) Ur Oxycodone Screen (NEGATIVE) Urine Methadone Screen (NEGATIVE) Ur Barbiturates Screen (NEGATIVE) Ur Phencyclidine Scrn (NEGATIVE) Ur Amphetamine Screen (NEGATIVE) U Methamphetamines Scrn (NEGATIVE) U Benzodiazepines Scrn (NEGATIVE) U Cocaine Metab Screen (NEGATIVE) U Marijuana (THC) Screen (NEGATIVE) Blood Type Antibody Screen Crossmatch 11/25/17 11/25/17 11/25/17 Range/Units 16:25 16:31 16:31 WBC (4.0-11.0) K/uL RBC (4.30-5.90) M/uL Hgb (12.0-16.0) g/dL Hct (36.0-46.0) % MCV (80.0-98.0) fL MCH (27.0-32.0) pg MCHC (31.0-37.0) g/dL RDW Std Deviation (28.0-62.0) fl RDW Coeff of [place] (11.0-15.0) % Plt Count (150-400) K/uL MPV (7.40-12.00) fL Neut % (Auto) (48.0-80.0) % Lymph % (Auto) (16.0-40.0) % [place] % (Auto) (0.0-15.0) % Eos % (Auto) (0.0-7.0) % Baso % (Auto) (0.0-1.5) % Neut # (Auto) (1.4-5.7) K/uL Lymph # (Auto) (0.6-2.4) K/uL [place] # (Auto) (0.0-0.8) K/uL Eos # (Auto) (0.0-0.7) K/uL Baso # (Auto) (0.0-0.1) K/uL Nucleated RBC % /100WBC Nucleated RBCs # K/uL ABG Carboxyhemoglobin (0-15) % Lactate (0.20-2.00) mmol/L Sodium (136-145) mmol/L Potassium (3.5-5.1) mmol/L Chloride (98-107) mmol/L Carbon Dioxide (21.0-32.0) mmol/L BUN (7.0-18.0) mg/dL Creatinine (0.6-1.0) mg/dL Est Cr Clr Drug Dosing mL/min Estimated GFR (MDRD) ml/min Glucose (74-106) mg/dL Calcium (8.5-10.1) mg/dL Total Bilirubin (0.2-1.0) mg/dL AST (15-37) IU/L ALT (14-63) IU/L Alkaline Phosphatase (46-116) U/L Total Protein (6.4-8.2) g/dL Albumin (3.4-5.0) g/dL Globulin (2.0-3.5) g/dL Albumin/Globulin Ratio (1.3-2.8) Urine Color YELLOW Urine Appearance SLT CLOUDY Urine pH 5.5 (5.0-8.0) Ur Specific [place] 1.020 (1.001-1.035) Urine Protein NEGATIVE (NEGATIVE) mg/dL Urine Glucose (UA) NEGATIVE (NEGATIVE) mg/dL Urine Ketones NEGATIVE (NEGATIVE) mg/dL Urine Occult Blood TRACE-INTACT (NEGATIVE) Urine Nitrite NEGATIVE (NEGATIVE) Urine Bilirubin NEGATIVE (NEGATIVE) Urine Urobilinogen 0.2 (<2.0) EU/dL Ur Leukocyte Esterase SMALL (NEGATIVE) Urine Opiates Screen NEGATIVE (NEGATIVE) Ur Oxycodone Screen NEGATIVE (NEGATIVE) Urine Methadone Screen NEGATIVE (NEGATIVE) Ur Barbiturates Screen NEGATIVE (NEGATIVE) Ur Phencyclidine Scrn NEGATIVE (NEGATIVE) Ur Amphetamine Screen NEGATIVE (NEGATIVE) U Methamphetamines Scrn NEGATIVE (NEGATIVE) U Benzodiazepines Scrn NEGATIVE (NEGATIVE) U Cocaine Metab Screen NEGATIVE (NEGATIVE) U Marijuana (THC) Screen NEGATIVE (NEGATIVE) Blood Type A POSITIVE Antibody Screen NEGATIVE Crossmatch See Detail Result Diagrams: 11/25/17 15:20 11/25/17 15:20 Phuc Results Last 24 hrs: Microbiology 11/25/17 16:33 Influenza Type A Antigen Screen - Final Nasopharyngeal Swab NEGATIVE INFLUENZA A VIRUS AG Influenza Type B Antigen Screen - Final NEGATIVE INFLUENZA B VIRUS AG Consult PN Assessment/Plan Procedures: Procedures CT ABD & PELV 1/> REGNS (08/30/14) MRI LUMBAR SPINE W/O DYE (05/01/17) Problem List Initiated/Reviewed/Updated: Yes My Orders Last 24 Hours: My Active Orders 11/25/17 20:15 Lactated Ringers @ 125 MLS/HR(1000ml) Potassium Chloride 40 meq Lactated Ringers [Ringers, Lactated] 1,000 ml IV ASDIRECTED Plan: Patient seen and examined with Dr. Rubi. I agree with his assessment and plan. Will add potassium chloride to her present IV as her serum potassium was only 3.0. Labs her again ordered for morning. Esophagogastroduodenoscopy with biopsy. The operative procedure, along with the risks, including, but not limited to, bleeding, perforation, and the need for surgery were discussed with the patient who voices understanding, offers no questions and wishes to proceed.
[2017-11-25] MEDS: Pantoprazole 80 MG in Sodium Chloride 0.9% 100 ML IV SCH (19:50)
[2017-11-25] MEDS: LORazepam 2 MG/ML SDV IVPUSH PRN (19:55)
[2017-11-25] MEDS ORDERED: Acetaminophen 325 MG Tab ONE (23:41)
[2017-11-25] MEDS ORDERED: Acetaminophen 325 MG Tab PO PRN (23:46)
[2017-11-26] MEDS: LORazepam 2 MG/ML SDV IVPUSH PRN ×2 (04:03→13:15)
[2017-11-26 05:56] LABS: CHLORIDE,CL 111 mmol/L (98-107); SODIUM,NA 143 mmol/L (136-145)
[2017-11-26] MEDS: Pantoprazole 80 MG in Sodium Chloride 0.9% 100 ML IV SCH (06:09)
[2017-11-26] MEDS: Sucralfate Suspension 1 GM/10 ML Cup PO SCH ×2 (07:09→12:58)
--- NOTE | 2017-11-26 08:48 | PCM.PREANE ---
Preanesthetic Assessment - Anesthesia/Transfusion/Family Hx Anesthesia History: Prior Anesthesia Without Reaction Family History of Anesthesia Reaction: No Transfusion History: Prior Transfusion Without Reaction - Review of Systems General: No Symptoms Pulmonary: No Symptoms Cardiovascular: No Symptoms Gastrointestinal: No Symptoms Neurological: No Symptoms Other: Reports: None - Physical Assessment NPO Status Date: 11/25/17 NPO Status Time: 17:00 Pulse: 68 O2 Sat by Pulse Oximetry: 97 Respiratory Rate: 16 Temperature: 99.1 F Vital Signs: Last Vital Signs Temp 99.1 F 11/26/17 08:40 Pulse 77 11/26/17 08:40 Resp 16 11/26/17 08:40 BP 116/59 L 11/26/17 08:40 Pulse Ox 97 11/26/17 08:40 Orthostatic Blood Pressure [ 102/66 Standing] Orthostatic Blood Pressure [ 110/72 Sitting] Orthostatic Blood Pressure [ 106/56 Supine] Height: 5 ft 6 in Weight: 56.699 kg ASA Class: 2E Mental Status: Alert & Oriented x3 Airway Class: Mallampati = 2 Dentition: Reports: Normal Dentition Thyro-Mental Finger Breadths: 3 Mouth Opening Finger Breadths: 3 ROM/Head Extension: Full Lungs: Clear to Auscultation, Normal Respiratory Effort Cardiovascular: Regular Rate, Regular Rhythm - Lab Values: Laboratory Last Values WBC 8.01 K/uL (4.0-11.0) 11/25/17 15:20 RBC 2.38 M/uL (4.30-5.90) L 11/25/17 15:20 Hgb 7.7 g/dL (12.0-16.0) L 11/26/17 02:37 Hct 22.9 % (36.0-46.0) L 11/26/17 02:37 MCV 81.5 fL (80.0-98.0) 11/25/17 15:20 MCH 26.5 pg (27.0-32.0) L 11/25/17 15:20 MCHC 32.5 g/dL (31.0-37.0) 11/25/17 15:20 RDW Std Deviation 42.8 fl (28.0-62.0) 11/25/17 15:20 RDW Coeff of [place] 14 % (11.0-15.0) 11/25/17 15:20 Plt Count 411 K/uL (150-400) H 11/25/17 15:20 MPV 9.00 fL (7.40-12.00) 11/25/17 15:20 Neut % (Auto) 72.7 % (48.0-80.0) 11/25/17 15:20 Lymph % (Auto) 18.0 % (16.0-40.0) 11/25/17 15:20 [place] % (Auto) 7.6 % (0.0-15.0) 11/25/17 15:20 Eos % (Auto) 1.6 % (0.0-7.0) 11/25/17 15:20 Baso % (Auto) 0.1 % (0.0-1.5) 11/25/17 15:20 Neut # (Auto) 5.8 K/uL (1.4-5.7) H 11/25/17 15:20 Lymph # (Auto) 1.4 K/uL (0.6-2.4) 11/25/17 15:20 Brooks # (Auto) 0.6 K/uL (0.0-0.8) 11/25/17 15:20 Eos # (Auto) 0.1 K/uL (0.0-0.7) 11/25/17 15:20 Baso # (Auto) 0.0 K/uL (0.0-0.1) 11/25/17 15:20 Nucleated RBC % 0.0 /100WBC 11/25/17 15:20 Nucleated RBCs # 0 K/uL 11/25/17 15:20 ABG Carboxyhemoglobin 8.5 % (0-15) 11/25/17 15:20 Lactate 2.0 mmol/L (0.20-2.00) 11/25/17 15:20 Sodium 143 mmol/L (136-145) 11/26/17 02:36 Potassium 4.0 mmol/L (3.5-5.1) 11/26/17 02:36 Chloride 111 mmol/L (98-107) H 11/26/17 02:36 Carbon Dioxide 24.6 mmol/L (21.0-32.0) 11/26/17 02:36 BUN 14 mg/dL (7.0-18.0) 11/26/17 02:36 Creatinine 0.8 mg/dL (0.6-1.0) 11/26/17 02:36 Est Cr Clr Drug Dosing 66.10 mL/min 11/26/17 02:36 Estimated GFR (MDRD) > 60.0 ml/min 11/26/17 02:36 Glucose 87 mg/dL (74-106) 11/26/17 02:36 Calcium 8.0 mg/dL (8.5-10.1) L 11/26/17 02:36 Total Bilirubin 1.0 mg/dL (0.2-1.0) 11/26/17 02:36 AST 12 IU/L (15-37) L 11/26/17 02:36 ALT 15 IU/L (14-63) 11/26/17 02:36 Alkaline Phosphatase 48 U/L (46-116) 11/26/17 02:36 Total Protein 4.7 g/dL (6.4-8.2) L 11/26/17 02:36 Albumin 2.4 g/dL (3.4-5.0) L 11/26/17 02:36 Globulin 2.3 g/dL (2.0-3.5) 11/26/17 02:36 Albumin/Globulin Ratio 1.0 (1.3-2.8) L 11/26/17 02:36 Urine Color YELLOW 11/25/17 16:31 Urine Appearance SLT CLOUDY 11/25/17 16:31 Urine pH 5.5 (5.0-8.0) 11/25/17 16:31 Ur Specific [place] 1.020 (1.001-1.035) 11/25/17 16:31 Urine Protein NEGATIVE mg/dL (NEGATIVE) 11/25/17 16:31 Urine Glucose (UA) NEGATIVE mg/dL (NEGATIVE) 11/25/17 16:31 Urine Ketones NEGATIVE mg/dL (NEGATIVE) 11/25/17 16:31 Urine Occult Blood TRACE-INTACT (NEGATIVE) 11/25/17 16:31 Urine Nitrite NEGATIVE (NEGATIVE) 11/25/17 16:31 Urine Bilirubin NEGATIVE (NEGATIVE) 11/25/17 16:31 Urine Urobilinogen 0.2 EU/dL (<2.0) 11/25/17 16:31 Ur Leukocyte Esterase SMALL (NEGATIVE) 04/03/18 16:31 Urine Opiates Screen NEGATIVE (NEGATIVE) 11/25/17 16:31 Ur Oxycodone Screen NEGATIVE (NEGATIVE) 11/25/17 16:31 Urine Methadone Screen NEGATIVE (NEGATIVE) 11/25/17 16:31 Ur Barbiturates Screen NEGATIVE (NEGATIVE) 11/25/17 16:31 Ur Phencyclidine Scrn NEGATIVE (NEGATIVE) 11/25/17 16:31 Ur Amphetamine Screen NEGATIVE (NEGATIVE) 11/25/17 16:31 U Methamphetamines Scrn NEGATIVE (NEGATIVE) 11/25/17 16:31 U Benzodiazepines Scrn NEGATIVE (NEGATIVE) 11/25/17 16:31 U Cocaine Metab Screen NEGATIVE (NEGATIVE) 11/25/17 16:31 U Marijuana (THC) Screen NEGATIVE (NEGATIVE) 11/25/17 16:31 Blood Type A POSITIVE 11/25/17 16:25 Antibody Screen NEGATIVE 11/25/17 16:25 Crossmatch See Detail 11/25/17 16:25 - Allergies Allergies/Adverse Reactions: Allergies Allergy/AdvReac Type Severity Reaction Status Date / Time clarithromycin [From Biaxin] Allergy Other Verified 11/25/17 15:00 Penicillins Allergy Rash Verified 11/25/17 15:00 - Anesthesia Plan Free Text/Narrative:: Hypokalemia resolving s/p 3 units PRBC, patient is receiving a 4th unit this morning pre-op. Pt initially had some palpitations and SOA in the ER yesterday , this is likely multi-factorial between the patients anemia and severe anxiety disorder. Currently the patient denies any chest pain, palpitations, or shortness of breath. - Acknowledgements Anesthesia Type Planned: MAC Pt an Appropriate Candidate for the Planned Anesthesia: Yes Alternatives and Risks of Anesthesia Discussed w Pt/Guardian: Yes Pt/Guardian Understands and Agrees with Anesthesia Plan: Yes PreAnesthesia Questionnaire HEENT History: Reports: Impaired Vision Cardiovascular History: Reports: None Respiratory History: Reports: Other (See Below) (Smoker 40+ years, 1PPD) Gastrointestinal History: Reports: Other (See Below). Denies: None (R/O gastric ulcer) Genitourinary History: Reports: None STRIPER MACHINE History: Reports: None Musculoskeletal History: Reports: Other (See Below) (Pt states she is currently being followed by Dr Sampson for severe pain in her left foot "its some torn tendons/ligaments." It does limit her daily ambulation.) Neurological History: Reports: None Psychiatric History: Reports: Anxiety Endocrine/Metabolic History: Reports: None Hematologic History: Reports: Anemia, Blood Transfusion(s) Immunologic History: Reports: None Oncologic (Cancer) History: Reports: None Dermatologic History: Reports: None - Infectious Disease History Infectious Disease History: Reports: Chicken Pox, Measles - Past Surgical History Head Surgeries/Procedures: Reports: None (Prior abdominal hysterectomy for cystic disease.) HEENT Surgical History: Reports: None Cardiovascular Surgical History: Reports: None Respiratory Surgical History: Reports: None GI Surgical History: Reports: Appendectomy Female Surgical History: Reports: Hysterectomy, Other (See Below) Other Female Surgeries/Procedures: ovarian cyst Endocrine Surgical History: Reports: None Neurological Surgical History: Reports: None Musculoskeletal Surgical History: Reports: None Oncologic Surgical History: Reports: None Dermatological Surgical History: Reports: None - History Comment History Comment: History of anxiety. Denies any prior cardiac or pulmonary diseases or problems. No hisotry of diabetes or HTN. - SUBSTANCE USE Smoking Status *Q: Current Every Day Smoker (1PPD X 40 years) Tobacco Use Within Last Twelve Months: Cigarettes Recreational Drug Use History: No - HOME MEDS Home Medications: Home Meds LORazepam 1 mg PO BID PRN 11/25/17 [History] PARoxetine [Paxil] 10 mg PO DAILY 11/25/17 [History] - CURRENT (IN HOUSE) MEDS Current Meds: Current Medications Acetaminophen (Tylenol) 650 mg PO Q4H PRN PRN Reason: Pain Last Admin: 11/26/17 00:06 Dose: 650 mg Lactated Ringer's (Ringers, Lactated) 1,000 mls @ 500 mls/hr IV .BOLUS KEYSHA Last Admin: 11/25/17 15:29 Dose: 500 mls/hr Pantoprazole Sodium 80 mg/ (Sodium Chloride) 100 mls @ 10 mls/hr IV Q10H KEYSHA Last Admin: 11/26/17 06:09 Dose: 10 mls/hr Potassium Chloride 40 meq/ (Lactated Ringer's) 1,020 mls @ 125 mls/hr IV ASDIRECTED KEYSHA Stop: 11/26/17 09:59 Last Admin: 11/26/17 02:19 Dose: 125 mls/hr Potassium Chloride 40 meq/ (Lactated Ringer's) 1,020 mls @ 125 mls/hr IV Q8H [facility] Lorazepam (Ativan) 0.5 mg IVPUSH Q4H PRN PRN Reason: Anxiety Last Admin: 11/26/17 04:03 Dose: 0.5 mg Sucralfate (Carafate) 1 gm PO Q6H [facility] Last Admin: 11/26/17 07:09 Dose: 1 gm Discontinued Medications Acetaminophen (Tylenol) Confirm Administered Dose 650 mg .ROUTE .STK-MED ONE Stop: 11/25/17 23:42 Last Admin: 11/25/17 23:56 Dose: Not Given Potassium Chloride/Sodium Chloride (Normal Saline With 40 Meq Kcl) 1,000 mls @ 150 mls/hr IV ASDIRECTED [facility] Stop: 11/26/17 00:54 Last Admin: 11/25/17 18:43 Dose: 150 mls/hr Pantoprazole Sodium (Protonix Iv) 80 mg IVPUSH NOW ONE Stop: 11/25/17 18:06 Last Admin: 11/25/17 18:42 Dose: 80 mg
--- NOTE | 2017-11-26 09:55 | PCM.SURGPN ---
<EliciaLacho Francois - Last Filed: 11/26/17 09:58> - General Info Date of Service: 11/26/17 - Review of Systems Systems Review Comment:: Feeling better this am. Denies any pain. Symptoms from yesterday improved. Denies nausea, vomiting, fever, chills, chest pain, or SOB. No dizziness, headaches, lightheadedness. - Patient Data Vitals - Most Recent: Last Vital Signs Temp 37.0 C 11/26/17 08:55 Pulse 75 11/26/17 08:55 Resp 16 11/26/17 08:55 BP 117/64 11/26/17 08:55 Pulse Ox 97 11/26/17 08:55 Orthostatic Blood Pressure [ 122/68 Standing] Orthostatic Blood Pressure [ 119/67 Sitting] Orthostatic Blood Pressure [ 118/67 Supine] Weight - Most Recent: 125 lb I&O - Last 24 Hours: Intake & Output 11/25/17 11/26/17 11/26/17 22:59 06:59 14:59 Intake Total 17 2480 0 Balance 17 2480 0 Lab Results Last 24 Hrs: Laboratory Results - last 24 hr 11/25/17 11/25/17 11/25/17 Range/Units 15:20 15:20 15:20 WBC 8.01 (4.0-11.0) K/uL RBC 2.38 L (4.30-5.90) M/uL Hgb 6.3 L (12.0-16.0) g/dL Hct 19.4 L (36.0-46.0) % MCV 81.5 (80.0-98.0) fL MCH 26.5 L (27.0-32.0) pg MCHC 32.5 (31.0-37.0) g/dL RDW Std Deviation 42.8 (28.0-62.0) fl RDW Coeff of [place] 14 (11.0-15.0) % Plt Count 411 H (150-400) K/uL MPV 9.00 (7.40-12.00) fL Neut % (Auto) 72.7 (48.0-80.0) % Lymph % (Auto) 18.0 (16.0-40.0) % [place] % (Auto) 7.6 (0.0-15.0) % Eos % (Auto) 1.6 (0.0-7.0) % Baso % (Auto) 0.1 (0.0-1.5) % Neut # (Auto) 5.8 H (1.4-5.7) K/uL Lymph # (Auto) 1.4 (0.6-2.4) K/uL [place] # (Auto) 0.6 (0.0-0.8) K/uL Eos # (Auto) 0.1 (0.0-0.7) K/uL Baso # (Auto) 0.0 (0.0-0.1) K/uL Nucleated RBC % 0.0 /100WBC Nucleated RBCs # 0 K/uL ABG Carboxyhemoglobin 8.5 (0-15) % Lactate 2.0 (0.20-2.00) mmol/L Sodium 141 (136-145) mmol/L Potassium 3.0 L (3.5-5.1) mmol/L Chloride 104 (98-107) mmol/L Carbon Dioxide 23.4 (21.0-32.0) mmol/L BUN 17 (7.0-18.0) mg/dL Creatinine 0.8 (0.6-1.0) mg/dL Est Cr Clr Drug Dosing 66.10 mL/min Estimated GFR (MDRD) > 60.0 ml/min Glucose 113 H (74-106) mg/dL Calcium 9.0 (8.5-10.1) mg/dL Total Bilirubin 0.3 (0.2-1.0) mg/dL AST 13 L (15-37) IU/L ALT 16 (14-63) IU/L Alkaline Phosphatase 62 (46-116) U/L Total Protein 5.9 L (6.4-8.2) g/dL Albumin 3.0 L (3.4-5.0) g/dL Globulin 2.9 (2.0-3.5) g/dL Albumin/Globulin Ratio 1.0 L (1.3-2.8) Urine Color Urine Appearance Urine pH (5.0-8.0) Ur Specific [place] (1.001-1.035) Urine Protein (NEGATIVE) mg/dL Urine Glucose (UA) (NEGATIVE) mg/dL Urine Ketones (NEGATIVE) mg/dL Urine Occult Blood (NEGATIVE) Urine Nitrite (NEGATIVE) Urine Bilirubin (NEGATIVE) Urine Urobilinogen (<2.0) EU/dL Ur Leukocyte Esterase (NEGATIVE) Urine Opiates Screen (NEGATIVE) Ur Oxycodone Screen (NEGATIVE) Urine Methadone Screen (NEGATIVE) Ur Barbiturates Screen (NEGATIVE) Ur Phencyclidine Scrn (NEGATIVE) Ur Amphetamine Screen (NEGATIVE) U Methamphetamines Scrn (NEGATIVE) U Benzodiazepines Scrn (NEGATIVE) U Cocaine Metab Screen (NEGATIVE) U Marijuana (THC) Screen (NEGATIVE) Blood Type Antibody Screen Crossmatch 11/25/17 11/25/17 11/25/17 Range/Units 16:25 16:31 16:31 WBC (4.0-11.0) K/uL RBC (4.30-5.90) M/uL Hgb (12.0-16.0) g/dL Hct (36.0-46.0) % MCV (80.0-98.0) fL MCH (27.0-32.0) pg MCHC (31.0-37.0) g/dL RDW Std Deviation (28.0-62.0) fl RDW Coeff of [place] (11.0-15.0) % Plt Count (150-400) K/uL MPV (7.40-12.00) fL Neut % (Auto) (48.0-80.0) % Lymph % (Auto) (16.0-40.0) % [place] % (Auto) (0.0-15.0) % Eos % (Auto) (0.0-7.0) % Baso % (Auto) (0.0-1.5) % Neut # (Auto) (1.4-5.7) K/uL Lymph # (Auto) (0.6-2.4) K/uL [place] # (Auto) (0.0-0.8) K/uL Eos # (Auto) (0.0-0.7) K/uL Baso # (Auto) (0.0-0.1) K/uL Nucleated RBC % /100WBC Nucleated RBCs # K/uL ABG Carboxyhemoglobin (0-15) % Lactate (0.20-2.00) mmol/L Sodium (136-145) mmol/L Potassium (3.5-5.1) mmol/L Chloride (98-107) mmol/L Carbon Dioxide (21.0-32.0) mmol/L BUN (7.0-18.0) mg/dL Creatinine (0.6-1.0) mg/dL Est Cr Clr Drug Dosing mL/min Estimated GFR (MDRD) ml/min Glucose (74-106) mg/dL Calcium (8.5-10.1) mg/dL Total Bilirubin (0.2-1.0) mg/dL AST (15-37) IU/L ALT (14-63) IU/L Alkaline Phosphatase (46-116) U/L Total Protein (6.4-8.2) g/dL Albumin (3.4-5.0) g/dL Globulin (2.0-3.5) g/dL Albumin/Globulin Ratio (1.3-2.8) Urine Color YELLOW Urine Appearance SLT CLOUDY Urine pH 5.5 (5.0-8.0) Ur Specific [place] 1.020 (1.001-1.035) Urine Protein NEGATIVE (NEGATIVE) mg/dL Urine Glucose (UA) NEGATIVE (NEGATIVE) mg/dL Urine Ketones NEGATIVE (NEGATIVE) mg/dL Urine Occult Blood TRACE-INTACT (NEGATIVE) Urine Nitrite NEGATIVE (NEGATIVE) Urine Bilirubin NEGATIVE (NEGATIVE) Urine Urobilinogen 0.2 (<2.0) EU/dL Ur Leukocyte Esterase SMALL (NEGATIVE) Urine Opiates Screen NEGATIVE (NEGATIVE) Ur Oxycodone Screen NEGATIVE (NEGATIVE) Urine Methadone Screen NEGATIVE (NEGATIVE) Ur Barbiturates Screen NEGATIVE (NEGATIVE) Ur Phencyclidine Scrn NEGATIVE (NEGATIVE) Ur Amphetamine Screen NEGATIVE (NEGATIVE) U Methamphetamines Scrn NEGATIVE (NEGATIVE) U Benzodiazepines Scrn NEGATIVE (NEGATIVE) U Cocaine Metab Screen NEGATIVE (NEGATIVE) U Marijuana (THC) Screen NEGATIVE (NEGATIVE) Blood Type A POSITIVE Antibody Screen NEGATIVE Crossmatch See Detail 11/26/17 11/26/17 Range/Units 02:36 02:37 WBC (4.0-11.0) K/uL RBC (4.30-5.90) M/uL Hgb 7.7 L (12.0-16.0) g/dL Hct 22.9 L (36.0-46.0) % MCV (80.0-98.0) fL MCH (27.0-32.0) pg MCHC (31.0-37.0) g/dL RDW Std Deviation (28.0-62.0) fl RDW Coeff of [place] (11.0-15.0) % Plt Count (150-400) K/uL MPV (7.40-12.00) fL Neut % (Auto) (48.0-80.0) % Lymph % (Auto) (16.0-40.0) % [place] % (Auto) (0.0-15.0) % Eos % (Auto) (0.0-7.0) % Baso % (Auto) (0.0-1.5) % Neut # (Auto) (1.4-5.7) K/uL Lymph # (Auto) (0.6-2.4) K/uL [place] # (Auto) (0.0-0.8) K/uL Eos # (Auto) (0.0-0.7) K/uL Baso # (Auto) (0.0-0.1) K/uL Nucleated RBC % /100WBC Nucleated RBCs # K/uL ABG Carboxyhemoglobin (0-15) % Lactate (0.20-2.00) mmol/L Sodium 143 (136-145) mmol/L Potassium 4.0 (3.5-5.1) mmol/L Chloride 111 H (98-107) mmol/L Carbon Dioxide 24.6 (21.0-32.0) mmol/L BUN 14 (7.0-18.0) mg/dL Creatinine 0.8 (0.6-1.0) mg/dL Est Cr Clr Drug Dosing 66.10 mL/min Estimated GFR (MDRD) > 60.0 ml/min Glucose 87 (74-106) mg/dL Calcium 8.0 L (8.5-10.1) mg/dL Total Bilirubin 1.0 (0.2-1.0) mg/dL AST 12 L (15-37) IU/L ALT 15 (14-63) IU/L Alkaline Phosphatase 48 (46-116) U/L Total Protein 4.7 L (6.4-8.2) g/dL Albumin 2.4 L (3.4-5.0) g/dL Globulin 2.3 (2.0-3.5) g/dL Albumin/Globulin Ratio 1.0 L (1.3-2.8) Urine Color Urine Appearance Urine pH (5.0-8.0) Ur Specific [place] (1.001-1.035) Urine Protein (NEGATIVE) mg/dL Urine Glucose (UA) (NEGATIVE) mg/dL Urine Ketones (NEGATIVE) mg/dL Urine Occult Blood (NEGATIVE) Urine Nitrite (NEGATIVE) Urine Bilirubin (NEGATIVE) Urine Urobilinogen (<2.0) EU/dL Ur Leukocyte Esterase (NEGATIVE) Urine Opiates Screen (NEGATIVE) Ur Oxycodone Screen (NEGATIVE) Urine Methadone Screen (NEGATIVE) Ur Barbiturates Screen (NEGATIVE) Ur Phencyclidine Scrn (NEGATIVE) Ur Amphetamine Screen (NEGATIVE) U Methamphetamines Scrn (NEGATIVE) U Benzodiazepines Scrn (NEGATIVE) U Cocaine Metab Screen (NEGATIVE) U Marijuana (THC) Screen (NEGATIVE) Blood Type Antibody Screen Crossmatch Phuc Results Last 24 Hrs: Microbiology 11/25/17 16:33 Influenza Type A Antigen Screen - Final Nasopharyngeal Swab NEGATIVE INFLUENZA A VIRUS AG Influenza Type B Antigen Screen - Final NEGATIVE INFLUENZA B VIRUS AG Med Orders - Current: Current Medications Acetaminophen (Tylenol) 650 mg PO Q4H PRN PRN Reason: Pain Last Admin: 11/26/17 00:06 Dose: 650 mg Lactated Ringer's (Ringers, Lactated) 1,000 mls @ 500 mls/hr IV .BOLUS [facility] Last Admin: 11/25/17 15:29 Dose: 500 mls/hr Pantoprazole Sodium 80 mg/ (Sodium Chloride) 100 mls @ 10 mls/hr IV Q10H KEYSHA Last Admin: 11/26/17 06:09 Dose: 10 mls/hr Potassium Chloride 40 meq/ (Lactated Ringer's) 1,020 mls @ 125 mls/hr IV ASDIRECTED KEYSHA Stop: 11/26/17 09:59 Last Admin: 11/26/17 02:19 Dose: 125 mls/hr Potassium Chloride 40 meq/ (Lactated Ringer's) 1,020 mls @ 125 mls/hr IV Q8H [facility] Lorazepam (Ativan) 0.5 mg IVPUSH Q4H PRN PRN Reason: Anxiety Last Admin: 11/26/17 04:03 Dose: 0.5 mg Sucralfate (Carafate) 1 gm PO Q6H KEYSHA Last Admin: 11/26/17 07:09 Dose: 1 gm Discontinued Medications Acetaminophen (Tylenol) Confirm Administered Dose 650 mg .ROUTE .STK-MED ONE Stop: 11/25/17 23:42 Last Admin: 11/25/17 23:56 Dose: Not Given Potassium Chloride/Sodium Chloride (Normal Saline With 40 Meq Kcl) 1,000 mls @ 150 mls/hr IV ASDIRECTED [facility] Stop: 11/26/17 00:54 Last Admin: 11/25/17 18:43 Dose: 150 mls/hr Pantoprazole Sodium (Protonix Iv) 80 mg IVPUSH NOW ONE Stop: 11/25/17 18:06 Last Admin: 11/25/17 18:42 Dose: 80 mg - Exam General: Alert Lungs: Other (Breathing comfortably. ) Cardiovascular: Regular Rate GI/Abdominal Exam: Soft, Non-Tender, No Distention Skin: Warm, Dry, Intact - Problem List & Annotations (1) Anemia SNOMED Code(s): 343265909 Code(s): D64.9 - ANEMIA, UNSPECIFIED Status: Acute Current Visit: Yes Annotation/Comment:: Suspected acute blood loss anemia secondary to an upper GI source. This may be either gastritis or an ulcer. At this time she has no active signs of bleeding. She is hemodynamically stable without tachycardia. She is not hypotensive. She is symptomatic. Admission HGB was 6.3. Plans to recieve 2 units RBCs. - Problem List Review Problem List Initiated/Reviewed/Updated: Yes - My Orders Last 24 Hours: Active Orders 24 hr Category Date Time Status Patient Status [ADT] Stat ADT 11/25/17 17:36 Active Notify Provider Consults [RC] ASDIRECTED Care 11/25/17 18:12 Active Orthostatic Vital Signs [RC] Q12H Care 11/25/17 17:27 Active Oxygen Therapy [RC] PRN Care 11/25/17 18:11 Active Telemetry Monitoring [Cardiac Monitoring] [RC] Q8H Care 11/25/17 16:00 Active Up ad E[place] [RC] ASDIRECTED Care 11/25/17 18:11 Active VTE/DVT Education [RC] PER UNIT ROUTINE Care 11/25/17 18:11 Active Vital Signs [RC] Q4H Care 11/25/17 18:11 Active Consult to Physician [CONS] Routine Cons 11/25/17 18:11 Active NPO After Midnight [Nothing per Oral After Midnight Diet 11/26/17 Dinner Active Diet] [DIET] CBC WITH AUTO DIFF [HEME] Routine Lab 11/26/17 10:00 Ordered DRUG SCREEN, URINE [URCHEM] Stat Lab 11/25/17 16:31 Ordered INFLUENZA A+B AG SCREEN [RM] Stat Lab 11/25/17 16:33 Ordered UA W/O MICROSCOPIC [URIN] Stat Lab 11/25/17 16:31 Ordered Acetaminophen [Tylenol] Med 11/25/17 23:46 Active 650 mg PO Q4H PRN LORazepam [Ativan] Med 11/25/17 18:13 Active 0.5 mg IVPUSH Q4H PRN Lactated Ringers [Ringers, Lactated] 1,000 ml Med 11/25/17 15:30 Active IV .BOLUS Pantoprazole [ProTONIX IV] 80 mg Med 11/25/17 18:15 Active Sodium Chloride 0.9% [Normal Saline] 100 ml IV Q10H Potassium Chloride 40 meq Med 11/25/17 20:15 Active Lactated Ringers [Ringers, Lactated] 1,000 ml IV ASDIRECTED Potassium Chloride 40 meq Med 11/26/17 10:00 Active Lactated Ringers [Ringers, Lactated] 1,000 ml IV Q8H Sucralfate [Carafate] Med 11/25/17 18:00 Active 1 gm PO Q6H Sequential Compression Device [OM.PC] Per Unit Routine Oth 11/25/17 18:11 Ordered Transfuse PRBC [Transfuse Red Blood Cells] [COMM] Stat Oth 11/25/17 17:28 Ordered Resuscitation Status Routine Resus Stat 11/25/17 18:11 Ordered Medication Orders Acetaminophen (Tylenol) 650 mg PO Q4H PRN PRN Reason: Pain Last Admin: 11/26/17 00:06 Dose: 650 mg Lactated Ringer's (Ringers, Lactated) 1,000 mls @ 500 mls/hr IV .BOLUS [facility] Last Admin: 11/25/17 15:29 Dose: 500 mls/hr Pantoprazole Sodium 80 mg/ (Sodium Chloride) 100 mls @ 10 mls/hr IV Q10H KEYSHA Last Admin: 04/04/18 06:09 Dose: 10 mls/hr Infusion: 11/26/17 05:50 Dose: 10 mls/hr Admin: 11/25/17 19:50 Dose: 10 mls/hr Potassium Chloride 40 meq/ (Lactated Ringer's) 1,020 mls @ 125 mls/hr IV ASDIRECTED KEYSHA Stop: 11/26/17 09:59 Last Admin: 11/26/17 02:19 Dose: 125 mls/hr Potassium Chloride 40 meq/ (Lactated Ringer's) 1,020 mls @ 125 mls/hr IV Q8H KEY[facility] Lorazepam (Ativan) 0.5 mg IVPUSH Q4H PRN PRN Reason: Anxiety Last Admin: 11/26/17 04:03 Dose: 0.5 mg Admin: 11/25/17 19:55 Dose: 0.5 mg Sucralfate (Carafate) 1 gm PO Q6H KEYSHA Last Admin: 11/26/17 07:09 Dose: 1 gm Admin: 11/25/17 23:44 Dose: 1 gm Admin: 11/25/17 18:42 Dose: 1 gm - Assessment Assessment (Free Text/Narrative):: 62 yr old female admitted to the medicine service 11/25/17 for anemia. Concerns of upper GI bleed. Hemodynamically stable overnight. No tachycardia or hypotension. Symptoms improved. HGB early am of 7.7 from 6.3. Has recieved 3 units RBC thus far. Currently NPO. - Plan Plan (Free Text/Narrative):: Remain NPO. EGD today with Dr. Cowan. <Ajay Cowan - Last Filed: 11/26/17 10:38> - Patient Data Vitals - Most Recent: Last Vital Signs Temp 98.6 F 11/26/17 08:55 Pulse 75 11/26/17 08:55 Resp 16 11/26/17 08:55 BP 117/64 11/26/17 08:55 Pulse Ox 97 11/26/17 08:55 Orthostatic Blood Pressure [ 122/68 Standing] Orthostatic Blood Pressure [ 119/67 Sitting] Orthostatic Blood Pressure [ 118/67 Supine] I&O - Last 24 Hours: Intake & Output 11/25/17 11/26/17 11/26/17 19:59 03:59 11:59 Intake Total 0 1700 797 Balance 0 1700 797 Lab Results Last 24 Hrs: Laboratory Results - last 24 hr 11/25/17 11/25/17 11/25/17 Range/Units 15:20 15:20 15:20 WBC 8.01 (4.0-11.0) K/uL RBC 2.38 L (4.30-5.90) M/uL Hgb 6.3 L (12.0-16.0) g/dL Hct 19.4 L (36.0-46.0) % MCV 81.5 (80.0-98.0) fL MCH 26.5 L (27.0-32.0) pg MCHC 32.5 (31.0-37.0) g/dL RDW Std Deviation 42.8 (28.0-62.0) fl RDW Coeff of [place] 14 (11.0-15.0) % Plt Count 411 H (150-400) K/uL MPV 9.00 (7.40-12.00) fL Neut % (Auto) 72.7 (48.0-80.0) % Lymph % (Auto) 18.0 (16.0-40.0) % [place] % (Auto) 7.6 (0.0-15.0) % Eos % (Auto) 1.6 (0.0-7.0) % Baso % (Auto) 0.1 (0.0-1.5) % Neut # (Auto) 5.8 H (1.4-5.7) K/uL Lymph # (Auto) 1.4 (0.6-2.4) K/uL [place] # (Auto) 0.6 (0.0-0.8) K/uL Eos # (Auto) 0.1 (0.0-0.7) K/uL Baso # (Auto) 0.0 (0.0-0.1) K/uL Nucleated RBC % 0.0 /100WBC Nucleated RBCs # 0 K/uL ABG Carboxyhemoglobin 8.5 (0-15) % Lactate 2.0 (0.20-2.00) mmol/L Sodium 141 (136-145) mmol/L Potassium 3.0 L (3.5-5.1) mmol/L Chloride 104 (98-107) mmol/L Carbon Dioxide 23.4 (21.0-32.0) mmol/L BUN 17 (7.0-18.0) mg/dL Creatinine 0.8 (0.6-1.0) mg/dL Est Cr Clr Drug Dosing 66.10 mL/min Estimated GFR (MDRD) > 60.0 ml/min Glucose 113 H (74-106) mg/dL Calcium 9.0 (8.5-10.1) mg/dL Total Bilirubin 0.3 (0.2-1.0) mg/dL AST 13 L (15-37) IU/L ALT 16 (14-63) IU/L Alkaline Phosphatase 62 (46-116) U/L Total Protein 5.9 L (6.4-8.2) g/dL Albumin 3.0 L (3.4-5.0) g/dL Globulin 2.9 (2.0-3.5) g/dL Albumin/Globulin Ratio 1.0 L (1.3-2.8) Urine Color Urine Appearance Urine pH (5.0-8.0) Ur Specific [place] (1.001-1.035) Urine Protein (NEGATIVE) mg/dL Urine Glucose (UA) (NEGATIVE) mg/dL Urine Ketones (NEGATIVE) mg/dL Urine Occult Blood (NEGATIVE) Urine Nitrite (NEGATIVE) Urine Bilirubin (NEGATIVE) Urine Urobilinogen (<2.0) EU/dL Ur Leukocyte Esterase (NEGATIVE) Urine Opiates Screen (NEGATIVE) Ur Oxycodone Screen (NEGATIVE) Urine Methadone Screen (NEGATIVE) Ur Barbiturates Screen (NEGATIVE) Ur Phencyclidine Scrn (NEGATIVE) Ur Amphetamine Screen (NEGATIVE) U Methamphetamines Scrn (NEGATIVE) U Benzodiazepines Scrn (NEGATIVE) U Cocaine Metab Screen (NEGATIVE) U Marijuana (THC) Screen (NEGATIVE) Blood Type Antibody Screen Crossmatch 11/25/17 11/25/17 11/25/17 Range/Units 16:25 16:31 16:31 WBC (4.0-11.0) K/uL RBC (4.30-5.90) M/uL Hgb (12.0-16.0) g/dL Hct (36.0-46.0) % MCV (80.0-98.0) fL MCH (27.0-32.0) pg MCHC (31.0-37.0) g/dL RDW Std Deviation (28.0-62.0) fl RDW Coeff of [place] (11.0-15.0) % Plt Count (150-400) K/uL MPV (7.40-12.00) fL Neut % (Auto) (48.0-80.0) % Lymph % (Auto) (16.0-40.0) % [place] % (Auto) (0.0-15.0) % Eos % (Auto) (0.0-7.0) % Baso % (Auto) (0.0-1.5) % Neut # (Auto) (1.4-5.7) K/uL Lymph # (Auto) (0.6-2.4) K/uL [place] # (Auto) (0.0-0.8) K/uL Eos # (Auto) (0.0-0.7) K/uL Baso # (Auto) (0.0-0.1) K/uL Nucleated RBC % /100WBC Nucleated RBCs # K/uL ABG Carboxyhemoglobin (0-15) % Lactate (0.20-2.00) mmol/L Sodium (136-145) mmol/L Potassium (3.5-5.1) mmol/L Chloride (98-107) mmol/L Carbon Dioxide (21.0-32.0) mmol/L BUN (7.0-18.0) mg/dL Creatinine (0.6-1.0) mg/dL Est Cr Clr Drug Dosing mL/min Estimated GFR (MDRD) ml/min Glucose (74-106) mg/dL Calcium (8.5-10.1) mg/dL Total Bilirubin (0.2-1.0) mg/dL AST (15-37) IU/L ALT (14-63) IU/L Alkaline Phosphatase (46-116) U/L Total Protein (6.4-8.2) g/dL Albumin (3.4-5.0) g/dL Globulin (2.0-3.5) g/dL Albumin/Globulin Ratio (1.3-2.8) Urine Color YELLOW Urine Appearance SLT CLOUDY Urine pH 5.5 (5.0-8.0) Ur Specific [place] 1.020 (1.001-1.035) Urine Protein NEGATIVE (NEGATIVE) mg/dL Urine Glucose (UA) NEGATIVE (NEGATIVE) mg/dL Urine Ketones NEGATIVE (NEGATIVE) mg/dL Urine Occult Blood TRACE-INTACT (NEGATIVE) Urine Nitrite NEGATIVE (NEGATIVE) Urine Bilirubin NEGATIVE (NEGATIVE) Urine Urobilinogen 0.2 (<2.0) EU/dL Ur Leukocyte Esterase SMALL (NEGATIVE) Urine Opiates Screen NEGATIVE (NEGATIVE) Ur Oxycodone Screen NEGATIVE (NEGATIVE) Urine Methadone Screen NEGATIVE (NEGATIVE) Ur Barbiturates Screen NEGATIVE (NEGATIVE) Ur Phencyclidine Scrn NEGATIVE (NEGATIVE) Ur Amphetamine Screen NEGATIVE (NEGATIVE) U Methamphetamines Scrn NEGATIVE (NEGATIVE) U Benzodiazepines Scrn NEGATIVE (NEGATIVE) U Cocaine Metab Screen NEGATIVE (NEGATIVE) U Marijuana (THC) Screen NEGATIVE (NEGATIVE) Blood Type A POSITIVE Antibody Screen NEGATIVE Crossmatch See Detail 11/26/17 11/26/17 Range/Units 02:36 02:37 WBC (4.0-11.0) K/uL RBC (4.30-5.90) M/uL Hgb 7.7 L (12.0-16.0) g/dL Hct 22.9 L (36.0-46.0) % MCV (80.0-98.0) fL MCH (27.0-32.0) pg MCHC (31.0-37.0) g/dL RDW Std Deviation (28.0-62.0) fl RDW Coeff of [place] (11.0-15.0) % Plt Count (150-400) K/uL MPV (7.40-12.00) fL Neut % (Auto) (48.0-80.0) % Lymph % (Auto) (16.0-40.0) % [place] % (Auto) (0.0-15.0) % Eos % (Auto) (0.0-7.0) % Baso % (Auto) (0.0-1.5) % Neut # (Auto) (1.4-5.7) K/uL Lymph # (Auto) (0.6-2.4) K/uL [place] # (Auto) (0.0-0.8) K/uL Eos # (Auto) (0.0-0.7) K/uL Baso # (Auto) (0.0-0.1) K/uL Nucleated RBC % /100WBC Nucleated RBCs # K/uL ABG Carboxyhemoglobin (0-15) % Lactate (0.20-2.00) mmol/L Sodium 143 (136-145) mmol/L Potassium 4.0 (3.5-5.1) mmol/L Chloride 111 H (98-107) mmol/L Carbon Dioxide 24.6 (21.0-32.0) mmol/L BUN 14 (7.0-18.0) mg/dL Creatinine 0.8 (0.6-1.0) mg/dL Est Cr Clr Drug Dosing 66.10 mL/min Estimated GFR (MDRD) > 60.0 ml/min Glucose 87 (74-106) mg/dL Calcium 8.0 L (8.5-10.1) mg/dL Total Bilirubin 1.0 (0.2-1.0) mg/dL AST 12 L (15-37) IU/L ALT 15 (14-63) IU/L Alkaline Phosphatase 48 (46-116) U/L Total Protein 4.7 L (6.4-8.2) g/dL Albumin 2.4 L (3.4-5.0) g/dL Globulin 2.3 (2.0-3.5) g/dL Albumin/Globulin Ratio 1.0 L (1.3-2.8) Urine Color Urine Appearance Urine pH (5.0-8.0) Ur Specific [place] (1.001-1.035) Urine Protein (NEGATIVE) mg/dL Urine Glucose (UA) (NEGATIVE) mg/dL Urine Ketones (NEGATIVE) mg/dL Urine Occult Blood (NEGATIVE) Urine Nitrite (NEGATIVE) Urine Bilirubin (NEGATIVE) Urine Urobilinogen (<2.0) EU/dL Ur Leukocyte Esterase (NEGATIVE) Urine Opiates Screen (NEGATIVE) Ur Oxycodone Screen (NEGATIVE) Urine Methadone Screen (NEGATIVE) Ur Barbiturates Screen (NEGATIVE) Ur Phencyclidine Scrn (NEGATIVE) Ur Amphetamine Screen (NEGATIVE) U Methamphetamines Scrn (NEGATIVE) U Benzodiazepines Scrn (NEGATIVE) U Cocaine Metab Screen (NEGATIVE) U Marijuana (THC) Screen (NEGATIVE) Blood Type Antibody Screen Crossmatch Phuc Results Last 24 Hrs: Microbiology 11/25/17 16:33 Influenza Type A Antigen Screen - Final Nasopharyngeal Swab NEGATIVE INFLUENZA A VIRUS AG Influenza Type B Antigen Screen - Final NEGATIVE INFLUENZA B VIRUS AG Med Orders - Current: Current Medications Acetaminophen (Tylenol) 650 mg PO Q4H PRN PRN Reason: Pain Last Admin: 11/26/17 00:06 Dose: 650 mg Lactated Ringer's (Ringers, Lactated) 1,000 mls @ 500 mls/hr IV .BOLUS [facility] Last Admin: 11/25/17 15:29 Dose: 500 mls/hr Pantoprazole Sodium 80 mg/ (Sodium Chloride) 100 mls @ 10 mls/hr IV Q10H [facility] Last Admin: 11/26/17 06:09 Dose: 10 mls/hr Potassium Chloride 40 meq/ (Lactated Ringer's) 1,020 mls @ 125 mls/hr IV Q8H [facility] Lorazepam (Ativan) 0.5 mg IVPUSH Q4H PRN PRN Reason: Anxiety Last Admin: 11/26/17 04:03 Dose: 0.5 mg Sucralfate (Carafate) 1 gm PO Q6H [facility] Last Admin: 11/26/17 07:09 Dose: 1 gm Discontinued Medications Acetaminophen (Tylenol) Confirm Administered Dose 650 mg .ROUTE .STK-MED ONE Stop: 11/25/17 23:42 Last Admin: 11/25/17 23:56 Dose: Not Given Fentanyl (Sublimaze) Confirm Administered Dose 100 mcg .ROUTE .STK-MED ONE Stop: 11/26/17 10:14 Potassium Chloride/Sodium Chloride (Normal Saline With 40 Meq Kcl) 1,000 mls @ 150 mls/hr IV ASDIRECTED [facility] Stop: 11/26/17 00:54 Last Admin: 11/25/17 18:43 Dose: 150 mls/hr Potassium Chloride 40 meq/ (Lactated Ringer's) 1,020 mls @ 125 mls/hr IV ASDIRECTED [facility] Stop: 11/26/17 09:59 Last Admin: 11/26/17 02:19 Dose: 125 mls/hr Lidocaine (Xylocaine-Mpf 2%) Confirm Administered Dose 5 ml .ROUTE .STK-MED ONE Stop: 11/26/17 10:14 Midazolam HCl (Versed 1 Mg/Ml) Confirm Administered Dose 2 mg .ROUTE .STK-MED ONE Stop: 11/26/17 10:14 Pantoprazole Sodium (Protonix Iv) 80 mg IVPUSH NOW ONE Stop: 11/25/17 18:06 Last Admin: 11/25/17 18:42 Dose: 80 mg Propofol (Diprivan 20 Ml) Confirm Administered Dose 400 mg .ROUTE .STK-MED ONE Stop: 11/26/17 10:14 - My Orders Last 24 Hours: Active Orders 24 hr Category Date Time Status Patient Status [ADT] Stat ADT 11/25/17 17:36 Active Notify Provider Consults [RC] ASDIRECTED Care 11/25/17 18:12 Active Orthostatic Vital Signs [RC] Q12H Care 11/25/17 17:27 Active Oxygen Therapy [RC] PRN Care 11/25/17 18:11 Active Telemetry Monitoring [Cardiac Monitoring] [RC] Q8H Care 11/25/17 16:00 Active Up ad Ene[place] [RC] ASDIRECTED Care 11/25/17 18:11 Active VTE/DVT Education [RC] PER UNIT ROUTINE Care 11/25/17 18:11 Active Vital Signs [RC] Q4H Care 11/25/17 18:11 Active Consult to Physician [CONS] Routine Cons 11/25/17 18:11 Active NPO After Midnight [Nothing per Oral After Midnight Diet 11/26/17 Dinner Active Diet] [DIET] CBC WITH AUTO DIFF [HEME] Routine Lab 11/26/17 10:00 Ordered DRUG SCREEN, URINE [URCHEM] Stat Lab 11/25/17 16:31 Ordered INFLUENZA A+B AG SCREEN [RM] Stat Lab 11/25/17 16:33 Ordered UA W/O MICROSCOPIC [URIN] Stat Lab 11/25/17 16:31 Ordered Acetaminophen [Tylenol] Med 11/25/17 23:46 Active 650 mg PO Q4H PRN LORazepam [Ativan] Med 11/25/17 18:13 Active 0.5 mg IVPUSH Q4H PRN Lactated Ringers [Ringers, Lactated] 1,000 ml Med 11/25/17 15:30 Active IV .BOLUS Pantoprazole [ProTONIX IV] 80 mg Med 11/25/17 18:15 Active Sodium Chloride 0.9% [Normal Saline] 100 ml IV Q10H Potassium Chloride 40 meq Med 11/26/17 10:00 Active Lactated Ringers [Ringers, Lactated] 1,000 ml IV Q8H Sucralfate [Carafate] Med 11/25/17 18:00 Active 1 gm PO Q6H Sequential Compression Device [OM.PC] Per Unit Routine Oth 11/25/17 18:11 Ordered Transfuse PRBC [Transfuse Red Blood Cells] [COMM] Stat Oth 11/25/17 17:28 Ordered Resuscitation Status Routine Resus Stat 11/25/17 18:11 Ordered Medication Orders Acetaminophen (Tylenol) 650 mg PO Q4H PRN PRN Reason: Pain Last Admin: 11/26/17 00:06 Dose: 650 mg Lactated Ringer's (Ringers, Lactated) 1,000 mls @ 500 mls/hr IV .BOLUS [facility] Last Admin: 11/25/17 15:29 Dose: 500 mls/hr Pantoprazole Sodium 80 mg/ (Sodium Chloride) 100 mls @ 10 mls/hr IV Q10H [facility] Last Admin: 11/26/17 06:09 Dose: 10 mls/hr Infusion: 11/26/17 05:50 Dose: 10 mls/hr Admin: 11/25/17 19:50 Dose: 10 mls/hr Potassium Chloride 40 meq/ (Lactated Ringer's) 1,020 mls @ 125 mls/hr IV Q8H [facility] Lorazepam (Ativan) 0.5 mg IVPUSH Q4H PRN PRN Reason: Anxiety Last Admin: 11/26/17 04:03 Dose: 0.5 mg Admin: 11/25/17 19:55 Dose: 0.5 mg Sucralfate (Carafate) 1 gm PO Q6H [facility] Last Admin: 11/26/17 07:09 Dose: 1 gm Admin: 11/25/17 23:44 Dose: 1 gm Admin: 11/25/17 18:42 Dose: 1 gm - Plan Plan (Free Text/Narrative):: Patient seen and examined with Dr. Rubi. I agree with his assessment and plan.
[2017-11-26] MEDS ORDERED: fentaNYL 100 MCG/2 ML SDV ONE (10:13)
[2017-11-26] MEDS ORDERED: Propofol 200 MG/20 ML SDV ONE (10:13)
[2017-11-26] MEDS ORDERED: Midazolam 1 MG/ML 2 ML SDV ONE (10:13)
[2017-11-26] MEDS ORDERED: Lidocaine 2% 5 ML SDV ONE (10:13)
--- NOTE | 2017-11-26 11:07 | PCM.PN ---
- Patient Data Vitals - Most Recent: Last Vital Signs Temp 37.0 C 11/26/17 10:50 Pulse 76 11/26/17 10:50 Resp 16 11/26/17 10:50 BP 120/68 11/26/17 10:50 Pulse Ox 96 11/26/17 10:50 Orthostatic Blood Pressure [ 122/68 Standing] Orthostatic Blood Pressure [ 119/67 Sitting] Orthostatic Blood Pressure [ 118/67 Supine] Weight - Most Recent: 56.699 kg I&O - Last 24 Hours: Intake & Output 11/25/17 11/26/17 11/26/17 22:59 06:59 14:59 Intake Total 17 2480 350 Balance 17 2480 350 Lab Results Last 24 Hours: Laboratory Results - last 24 hr 11/25/17 11/25/17 11/25/17 Range/Units 15:20 15:20 15:20 WBC 8.01 (4.0-11.0) K/uL RBC 2.38 L (4.30-5.90) M/uL Hgb 6.3 L (12.0-16.0) g/dL Hct 19.4 L (36.0-46.0) % MCV 81.5 (80.0-98.0) fL MCH 26.5 L (27.0-32.0) pg MCHC 32.5 (31.0-37.0) g/dL RDW Std Deviation 42.8 (28.0-62.0) fl RDW Coeff of [place] 14 (11.0-15.0) % Plt Count 411 H (150-400) K/uL MPV 9.00 (7.40-12.00) fL Neut % (Auto) 72.7 (48.0-80.0) % Lymph % (Auto) 18.0 (16.0-40.0) % Bowie % (Auto) 7.6 (0.0-15.0) % Eos % (Auto) 1.6 (0.0-7.0) % Baso % (Auto) 0.1 (0.0-1.5) % Neut # (Auto) 5.8 H (1.4-5.7) K/uL Lymph # (Auto) 1.4 (0.6-2.4) K/uL Bowie # (Auto) 0.6 (0.0-0.8) K/uL Eos # (Auto) 0.1 (0.0-0.7) K/uL Baso # (Auto) 0.0 (0.0-0.1) K/uL Nucleated RBC % 0.0 /100WBC Nucleated RBCs # 0 K/uL ABG Carboxyhemoglobin 8.5 (0-15) % Lactate 2.0 (0.20-2.00) mmol/L Sodium 141 (136-145) mmol/L Potassium 3.0 L (3.5-5.1) mmol/L Chloride 104 (98-107) mmol/L Carbon Dioxide 23.4 (21.0-32.0) mmol/L BUN 17 (7.0-18.0) mg/dL Creatinine 0.8 (0.6-1.0) mg/dL Est Cr Clr Drug Dosing 66.10 mL/min Estimated GFR (MDRD) > 60.0 ml/min Glucose 113 H (74-106) mg/dL Calcium 9.0 (8.5-10.1) mg/dL Total Bilirubin 0.3 (0.2-1.0) mg/dL AST 13 L (15-37) IU/L ALT 16 (14-63) IU/L Alkaline Phosphatase 62 (46-116) U/L Total Protein 5.9 L (6.4-8.2) g/dL Albumin 3.0 L (3.4-5.0) g/dL Globulin 2.9 (2.0-3.5) g/dL Albumin/Globulin Ratio 1.0 L (1.3-2.8) Urine Color Urine Appearance Urine pH (5.0-8.0) Ur Specific Watson (1.001-1.035) Urine Protein (NEGATIVE) mg/dL Urine Glucose (UA) (NEGATIVE) mg/dL Urine Ketones (NEGATIVE) mg/dL Urine Occult Blood (NEGATIVE) Urine Nitrite (NEGATIVE) Urine Bilirubin (NEGATIVE) Urine Urobilinogen (<2.0) EU/dL Ur Leukocyte Esterase (NEGATIVE) Urine Opiates Screen (NEGATIVE) Ur Oxycodone Screen (NEGATIVE) Urine Methadone Screen (NEGATIVE) Ur Barbiturates Screen (NEGATIVE) Ur Phencyclidine Scrn (NEGATIVE) Ur Amphetamine Screen (NEGATIVE) U Methamphetamines Scrn (NEGATIVE) U Benzodiazepines Scrn (NEGATIVE) U Cocaine Metab Screen (NEGATIVE) U Marijuana (THC) Screen (NEGATIVE) Blood Type Antibody Screen Crossmatch 11/25/17 11/25/17 11/25/17 Range/Units 16:25 16:31 16:31 WBC (4.0-11.0) K/uL RBC (4.30-5.90) M/uL Hgb (12.0-16.0) g/dL Hct (36.0-46.0) % MCV (80.0-98.0) fL MCH (27.0-32.0) pg MCHC (31.0-37.0) g/dL RDW Std Deviation (28.0-62.0) fl RDW Coeff of [place] (11.0-15.0) % Plt Count (150-400) K/uL MPV (7.40-12.00) fL Neut % (Auto) (48.0-80.0) % Lymph % (Auto) (16.0-40.0) % Bowie % (Auto) (0.0-15.0) % Eos % (Auto) (0.0-7.0) % Baso % (Auto) (0.0-1.5) % Neut # (Auto) (1.4-5.7) K/uL Lymph # (Auto) (0.6-2.4) K/uL Bowie # (Auto) (0.0-0.8) K/uL Eos # (Auto) (0.0-0.7) K/uL Baso # (Auto) (0.0-0.1) K/uL Nucleated RBC % /100WBC Nucleated RBCs # K/uL ABG Carboxyhemoglobin (0-15) % Lactate (0.20-2.00) mmol/L Sodium (136-145) mmol/L Potassium (3.5-5.1) mmol/L Chloride (98-107) mmol/L Carbon Dioxide (21.0-32.0) mmol/L BUN (7.0-18.0) mg/dL Creatinine (0.6-1.0) mg/dL Est Cr Clr Drug Dosing mL/min Estimated GFR (MDRD) ml/min Glucose (74-106) mg/dL Calcium (8.5-10.1) mg/dL Total Bilirubin (0.2-1.0) mg/dL AST (15-37) IU/L ALT (14-63) IU/L Alkaline Phosphatase (46-116) U/L Total Protein (6.4-8.2) g/dL Albumin (3.4-5.0) g/dL Globulin (2.0-3.5) g/dL Albumin/Globulin Ratio (1.3-2.8) Urine Color YELLOW Urine Appearance SLT CLOUDY Urine pH 5.5 (5.0-8.0) Ur Specific Watson 1.020 (1.001-1.035) Urine Protein NEGATIVE (NEGATIVE) mg/dL Urine Glucose (UA) NEGATIVE (NEGATIVE) mg/dL Urine Ketones NEGATIVE (NEGATIVE) mg/dL Urine Occult Blood TRACE-INTACT (NEGATIVE) Urine Nitrite NEGATIVE (NEGATIVE) Urine Bilirubin NEGATIVE (NEGATIVE) Urine Urobilinogen 0.2 (<2.0) EU/dL Ur Leukocyte Esterase SMALL (NEGATIVE) Urine Opiates Screen NEGATIVE (NEGATIVE) Ur Oxycodone Screen NEGATIVE (NEGATIVE) Urine Methadone Screen NEGATIVE (NEGATIVE) Ur Barbiturates Screen NEGATIVE (NEGATIVE) Ur Phencyclidine Scrn NEGATIVE (NEGATIVE) Ur Amphetamine Screen NEGATIVE (NEGATIVE) U Methamphetamines Scrn NEGATIVE (NEGATIVE) U Benzodiazepines Scrn NEGATIVE (NEGATIVE) U Cocaine Metab Screen NEGATIVE (NEGATIVE) U Marijuana (THC) Screen NEGATIVE (NEGATIVE) Blood Type A POSITIVE Antibody Screen NEGATIVE Crossmatch See Detail 11/26/17 11/26/17 Range/Units 02:36 02:37 WBC (4.0-11.0) K/uL RBC (4.30-5.90) M/uL Hgb 7.7 L (12.0-16.0) g/dL Hct 22.9 L (36.0-46.0) % MCV (80.0-98.0) fL MCH (27.0-32.0) pg MCHC (31.0-37.0) g/dL RDW Std Deviation (28.0-62.0) fl RDW Coeff of [place] (11.0-15.0) % Plt Count (150-400) K/uL MPV (7.40-12.00) fL Neut % (Auto) (48.0-80.0) % Lymph % (Auto) (16.0-40.0) % Bowie % (Auto) (0.0-15.0) % Eos % (Auto) (0.0-7.0) % Baso % (Auto) (0.0-1.5) % Neut # (Auto) (1.4-5.7) K/uL Lymph # (Auto) (0.6-2.4) K/uL Bowie # (Auto) (0.0-0.8) K/uL Eos # (Auto) (0.0-0.7) K/uL Baso # (Auto) (0.0-0.1) K/uL Nucleated RBC % /100WBC Nucleated RBCs # K/uL ABG Carboxyhemoglobin (0-15) % Lactate (0.20-2.00) mmol/L Sodium 143 (136-145) mmol/L Potassium 4.0 (3.5-5.1) mmol/L Chloride 111 H (98-107) mmol/L Carbon Dioxide 24.6 (21.0-32.0) mmol/L BUN 14 (7.0-18.0) mg/dL Creatinine 0.8 (0.6-1.0) mg/dL Est Cr Clr Drug Dosing 66.10 mL/min Estimated GFR (MDRD) > 60.0 ml/min Glucose 87 (74-106) mg/dL Calcium 8.0 L (8.5-10.1) mg/dL Total Bilirubin 1.0 (0.2-1.0) mg/dL AST 12 L (15-37) IU/L ALT 15 (14-63) IU/L Alkaline Phosphatase 48 (46-116) U/L Total Protein 4.7 L (6.4-8.2) g/dL Albumin 2.4 L (3.4-5.0) g/dL Globulin 2.3 (2.0-3.5) g/dL Albumin/Globulin Ratio 1.0 L (1.3-2.8) Urine Color Urine Appearance Urine pH (5.0-8.0) Ur Specific Watson (1.001-1.035) Urine Protein (NEGATIVE) mg/dL Urine Glucose (UA) (NEGATIVE) mg/dL Urine Ketones (NEGATIVE) mg/dL Urine Occult Blood (NEGATIVE) Urine Nitrite (NEGATIVE) Urine Bilirubin (NEGATIVE) Urine Urobilinogen (<2.0) EU/dL Ur Leukocyte Esterase (NEGATIVE) Urine Opiates Screen (NEGATIVE) Ur Oxycodone Screen (NEGATIVE) Urine Methadone Screen (NEGATIVE) Ur Barbiturates Screen (NEGATIVE) Ur Phencyclidine Scrn (NEGATIVE) Ur Amphetamine Screen (NEGATIVE) U Methamphetamines Scrn (NEGATIVE) U Benzodiazepines Scrn (NEGATIVE) U Cocaine Metab Screen (NEGATIVE) U Marijuana (THC) Screen (NEGATIVE) Blood Type Antibody Screen Crossmatch Phuc Results Last 24 Hours: Microbiology 11/25/17 16:33 Influenza Type A Antigen Screen - Final Nasopharyngeal Swab NEGATIVE INFLUENZA A VIRUS AG Influenza Type B Antigen Screen - Final NEGATIVE INFLUENZA B VIRUS AG Med Orders - Current: Current Medications Acetaminophen (Tylenol) 650 mg PO Q4H PRN PRN Reason: Pain Last Admin: 11/26/17 00:06 Dose: 650 mg Lactated Ringer's (Ringers, Lactated) 1,000 mls @ 500 mls/hr IV .BOLUS [facility] Last Admin: 11/25/17 15:29 Dose: 500 mls/hr Potassium Chloride 40 meq/ (Lactated Ringer's) 1,020 mls @ 125 mls/hr IV Q8H [facility] Lorazepam (Ativan) 0.5 mg IVPUSH Q4H PRN PRN Reason: Anxiety Last Admin: 11/26/17 04:03 Dose: 0.5 mg Pantoprazole Sodium (Protonix Iv) 40 mg IV Q12H [facility] Sucralfate (Carafate) 1 gm PO Q6H [facility] Last Admin: 11/26/17 07:09 Dose: 1 gm Discontinued Medications Acetaminophen (Tylenol) Confirm Administered Dose 650 mg .ROUTE .STK-MED ONE Stop: 11/25/17 23:42 Last Admin: 11/25/17 23:56 Dose: Not Given Fentanyl (Sublimaze) Confirm Administered Dose 100 mcg .ROUTE .STK-MED ONE Stop: 11/26/17 10:14 Pantoprazole Sodium 80 mg/ (Sodium Chloride) 100 mls @ 10 mls/hr IV Q10H [facility] Last Admin: 11/26/17 06:09 Dose: 10 mls/hr Potassium Chloride/Sodium Chloride (Normal Saline With 40 Meq Kcl) 1,000 mls @ 150 mls/hr IV ASDIRECTED [facility] Stop: 11/26/17 00:54 Last Admin: 11/25/17 18:43 Dose: 150 mls/hr Potassium Chloride 40 meq/ (Lactated Ringer's) 1,020 mls @ 125 mls/hr IV ASDIRECTED [facility] Stop: 11/26/17 09:59 Last Admin: 11/26/17 02:19 Dose: 125 mls/hr Lidocaine (Xylocaine-Mpf 2%) Confirm Administered Dose 5 ml .ROUTE .STK-MED ONE Stop: 11/26/17 10:14 Midazolam HCl (Versed 1 Mg/Ml) Confirm Administered Dose 2 mg .ROUTE .STK-MED ONE Stop: 11/26/17 10:14 Pantoprazole Sodium (Protonix Iv) 80 mg IVPUSH NOW ONE Stop: 11/25/17 18:06 Last Admin: 11/25/17 18:42 Dose: 80 mg Propofol (Diprivan 20 Ml) Confirm Administered Dose 400 mg .ROUTE .STK-MED ONE Stop: 11/26/17 10:14 - Plan Plan:: 62 yo female with suspect upper GI bleed, anemia from acute bleed, and hypokalemia. Dr. Cowan has been consulted regarding EGD. We will transfuse two units of pRBC and follow her Hgb. We will treat with protonix drip and carafate. We will replace her potassium. Patient is NPO.
--- NOTE | 2017-11-26 11:10 | PCM.OPNOTE ---
- General Post-Op/Procedure Note Date of Surgery/Procedure: 11/26/17 Operative Procedure(s): EGD w/ biopsy Pre Op Diagnosis: UGI bleed with anemia Post-Op Diagnosis: Gastritis with superficial non-bleeding gastric ulcer Anesthesia Technique: MAC (ASA IIE) Primary Surgeon: Ajay Cowan Condition: Good Free Text/Narrative:: Intake & Output 11/25/17 11/26/17 11/26/17 19:59 03:59 11:59 Intake Total 0 1700 1147 Balance 0 1700 1147 Dictation [id number] CPT CODE [id number]
--- NOTE | 2017-11-26 11:20 | PCM.POSTAN ---
POST ANESTHESIA ASSESSMENT - MENTAL STATUS Mental Status: Alert, Oriented - VITAL SIGNS Blood Pressure: 102/68 - RESPIRATORY Respiratory Status: Respiratory Rate WNL, Airway Patent, O2 Saturation Stable - CARDIOVASCULAR CV Status: Pulse Rate WNL, Blood Pressure Stable - GASTROINTESTINAL GI Status: No Symptoms - PAIN Pain Score: 0 - POST OP HYDRATION Hydration Status: Adequate & Stable - OBSERVATIONS Free Text/Narrative:: Pt awake and doing well post op - ok to tx back to [facility] for phase II recovery
--- NOTE | 2017-11-26 11:38 | OR ---
SURGEON: Ajay Cowan M.D. DATE OF PROCEDURE: 11/26/2017 OPERATION PERFORMED: Esophagogastroduodenoscopy with biopsy. ANESTHESIA: MAC. [employer] CLASSIFICATION: 2E. PREOPERATIVE DIAGNOSIS: Upper gastrointestinal bleed with anemia. POSTOPERATIVE DIAGNOSIS: Moderate gastritis with superficial gastric ulcer that is not currently bleeding. DESCRIPTION OF PROCEDURE: The patient was taken to the operating room and placed on the operating room table in the supine position. Time-out called for appropriate identification of the patient and procedure. Monitored anesthesia care was provided. The bite- block was placed between the patient's teeth. The gastroscope was inserted through the bite-block into the oropharynx and advanced without difficulty through the esophagus and stomach into the duodenum, where examination was carried out in a retrograde fashion. The duodenum shows no acute inflammatory changes or ulcerations. The stomach does show a [id number] gastritis. Antral biopsies were obtained to look for the presence of Helicobacter pylori. One small ulcer was noted in the stomach, and there is fresh blood overlying it. No active bleeding is noted. The gastroscope was retroflexed to visualize the proximal stomach. No mid or proximal gastric lesions are identified. The gastroscope was then straightened and slowly withdrawn. The GE junction was well defined and shows no acute inflammatory changes or ulcerations. The esophagus demonstrated good contractility. No mid or proximal lesions were identified. Vocal cords were briefly visualized as the scope was withdrawn and noted to move symmetrically. The gastroscope was then removed with the patient having tolerated the procedure well. She was taken to the recovery room in stable condition. JOYCE / SABI /[id number]
[2017-11-26] MEDS ORDERED: Pantoprazole 40 MG Vial IV SCH (12:00)
--- NOTE | 2017-11-26 13:40 | PCM48HPAN ---
Post Anesthesia Note - EVALUATION WITHIN 48HRS OF ANESTHETIC Vital Signs in Normal Range: Yes Patient Participated in Evaluation: Yes Respiratory Function Stable: Yes Airway Patent: Yes Cardiovascular Function Stable: Yes Hydration Status Stable: Yes Pain Control Satisfactory: Yes Nausea and Vomiting Control Satisfactory: Yes Mental Status Recovered: Yes Pulse Rate: 68 Resp Rate: 16 Temperature: 98.6 F Blood Pressure: 116/69
--- NOTE | 2017-11-26 22:29 | PCM.DCSUM1 ---
<Dustin Chamberlain Z - Last Filed: 11/26/17 22:21> Discharge Summary - Hospital Course HPI Initial Comments: Discharge Summary Date of admission: 11/25/2017 Date of discharge: 11/26/2017 Admitting diagnosis: #1. Suspected upper GI bleed #2. Anemia Secondary to likely acute bleed #3. Hypokalemia #4. #5. Discharge diagnoses: #1. Upper GI bleed secondary to ulceration after EGD assessment #2. Anemia improved after packed red blood cell transfusion Consultations: Gen. surgery Procedures: EGD Hospitalization course: Patient was admitted secondary to acute upper GI bleed based on symptoms, patient was made nothing by mouth, general surgery was consult. Also agreed with the patient nothing by mouth, Protonix 80 mg IV twice a day, Carafate with the intention for the patient to have a EGD in the a.m. General surgery recommended that the patient's hemoglobin did continue to drop that the patient should receive blood to increase the hemoglobin. Patient's anemia was 6.3 and subsequently the patient received 2 units of blood that increase the patient's hemoglobin to above 9. Patient had the EGD in the a.m., the EGD ended up showing a ulceration that was likely the source of the bleeding. General surgery stated that the patient would simply need to be sent home on Protonix and Carafate and followed up outpatient. Patient was to be kept overnight to ensure stability, and showed progression of diet and ensure hemoglobin was stabilized however patient despite being told that it would be better if she stayed overnight insisted that she would like to be discharged relatively, and subsequently was discharged home with follow-up with general surgery, Protonix by mouth prescription and Carafate by mouth prescription. Disposition on discharge: home Condition on discharge: stable Discharge medications: continuation of home medication, Protonix 40 mg twice a day, Carafate tablet Follow-up instructions: Follow-up with general surgery - Discharge Data Discharge Date: 11/26/17 Discharge Disposition: Home, Self-Care 01 Condition: Good - Patient Summary/Data Operative Procedure(s) Performed: EGD w/ biopsy Consults: Consultations 11/25/17 18:11 Consult to Physician [CONS] Routine - Patient Instructions Diet: Usual Diet as Tolerated Activity: As Tolerated Driving: Do Not Drive Showering/Bathing: May Shower Notify Provider of: Fever, Increased Pain, Swelling and Redness, Drainage, Nausea and/or Vomiting - Discharge Plan Prescriptions/Med Rec: Pantoprazole Sodium 40 mg PO BID 30 Days #60 tablet. Sucralfate [Carafate] 1 gm PO DAILY 30 Days #30 tablet Home Medications: Home Meds LORazepam 1 mg PO BID PRN 11/25/17 [History] PARoxetine [Paxil] 10 mg PO DAILY 11/25/17 [History] Pantoprazole Sodium 40 mg PO BID 30 Days #60 tablet. 11/26/17 [Rx] Sucralfate [Carafate] 1 gm PO DAILY 30 Days #30 tablet 11/26/17 [Rx] Patient Handouts: Anemia, Sucralfate tablets, Gastrointestinal Bleeding, Easy- to-Read, Pantoprazole tablets Referrals: [facility] [Outside] Ajay Cowan MD [Physician] - 12/04/17 10:30 am Milli Parikh NP [Ordering Only Provider] - 12/01/17 2:15 pm - Discharge Summary/Plan Comment DC Time >30 min.: No - Patient Data Vitals - Most Recent: Last Vital Signs Temp 37.0 C 11/26/17 13:40 Pulse 68 11/26/17 13:40 Resp 16 11/26/17 13:40 BP 116/69 11/26/17 13:40 Pulse Ox 98 11/26/17 11:57 Orthostatic Blood Pressure [ 122/68 Standing] Orthostatic Blood Pressure [ 119/67 Sitting] Orthostatic Blood Pressure [ 118/67 Supine] Weight - Most Recent: 56.699 kg I&O - Last 24 hours: Intake & Output 11/26/17 11/26/17 11/26/17 06:59 14:59 22:59 Intake Total 2480 990 Output Total 500 Balance 2480 490 Lab Results - Last 24 hrs: Laboratory Results - last 24 hr 11/25/17 11/26/17 11/26/17 Range/Units 16:25 02:36 02:37 WBC (4.0-11.0) K/uL RBC (4.30-5.90) M/uL Hgb 7.7 L (12.0-16.0) g/dL Hct 22.9 L (36.0-46.0) % MCV (80.0-98.0) fL MCH (27.0-32.0) pg MCHC (31.0-37.0) g/dL RDW Std Deviation (28.0-62.0) fl RDW Coeff of [place] (11.0-15.0) % Plt Count (150-400) K/uL MPV (7.40-12.00) fL Neut % (Auto) (48.0-80.0) % Lymph % (Auto) (16.0-40.0) % [place]urry % (Auto) (0.0-15.0) % Eos % (Auto) (0.0-7.0) % Baso % (Auto) (0.0-1.5) % Neut # (Auto) (1.4-5.7) K/uL Lymph # (Auto) (0.6-2.4) K/uL [place]urry # (Auto) (0.0-0.8) K/uL Eos # (Auto) (0.0-0.7) K/uL Baso # (Auto) (0.0-0.1) K/uL Nucleated RBC % /100WBC Nucleated RBCs # K/uL Sodium 143 (136-145) mmol/L Potassium 4.0 (3.5-5.1) mmol/L Chloride 111 H (98-107) mmol/L Carbon Dioxide 24.6 (21.0-32.0) mmol/L BUN 14 (7.0-18.0) mg/dL Creatinine 0.8 (0.6-1.0) mg/dL Est Cr Clr Drug Dosing 66.10 mL/min Estimated GFR (MDRD) > 60.0 ml/min Glucose 87 (74-106) mg/dL Calcium 8.0 L (8.5-10.1) mg/dL Total Bilirubin 1.0 (0.2-1.0) mg/dL AST 12 L (15-37) IU/L ALT 15 (14-63) IU/L Alkaline Phosphatase 48 (46-116) U/L Total Protein 4.7 L (6.4-8.2) g/dL Albumin 2.4 L (3.4-5.0) g/dL Globulin 2.3 (2.0-3.5) g/dL Albumin/Globulin Ratio 1.0 L (1.3-2.8) Blood Type A POSITIVE Antibody Screen NEGATIVE Crossmatch See Detail 11/26/17 Range/Units 12:20 WBC 4.51 (4.0-11.0) K/uL RBC 3.69 L (4.30-5.90) M/uL Hgb 10.3 L (12.0-16.0) g/dL Hct 29.9 L (36.0-46.0) % MCV 81.0 (80.0-98.0) fL MCH 27.9 (27.0-32.0) pg MCHC 34.4 (31.0-37.0) g/dL RDW Std Deviation 42.4 (28.0-62.0) fl RDW Coeff of [place] 14 (11.0-15.0) % Plt Count 270 (150-400) K/uL MPV 9.30 (7.40-12.00) fL Neut % (Auto) 57.5 (48.0-80.0) % Lymph % (Auto) 26.6 (16.0-40.0) % [place]urry % (Auto) 9.3 (0.0-15.0) % Eos % (Auto) 6.2 (0.0-7.0) % Baso % (Auto) 0.4 (0.0-1.5) % Neut # (Auto) 2.6 (1.4-5.7) K/uL Lymph # (Auto) 1.2 (0.6-2.4) K/uL Scurry # (Auto) 0.4 (0.0-0.8) K/uL Eos # (Auto) 0.3 (0.0-0.7) K/uL Baso # (Auto) 0.0 (0.0-0.1) K/uL Nucleated RBC % 0.0 /100WBC Nucleated RBCs # 0 K/uL Sodium (136-145) mmol/L Potassium (3.5-5.1) mmol/L Chloride (98-107) mmol/L Carbon Dioxide (21.0-32.0) mmol/L BUN (7.0-18.0) mg/dL Creatinine (0.6-1.0) mg/dL Est Cr Clr Drug Dosing mL/min Estimated GFR (MDRD) ml/min Glucose (74-106) mg/dL Calcium (8.5-10.1) mg/dL Total Bilirubin (0.2-1.0) mg/dL AST (15-37) IU/L ALT (14-63) IU/L Alkaline Phosphatase (46-116) U/L Total Protein (6.4-8.2) g/dL Albumin (3.4-5.0) g/dL Globulin (2.0-3.5) g/dL Albumin/Globulin Ratio (1.3-2.8) Blood Type Antibody Screen Crossmatch Med Orders - Current: Current Medications Discontinued Medications Acetaminophen (Tylenol) Confirm Administered Dose 650 mg .ROUTE .STK-MED ONE Stop: 11/25/17 23:42 Last Admin: 11/25/17 23:56 Dose: Not Given Acetaminophen (Tylenol) 650 mg PO Q4H PRN PRN Reason: Pain Last Admin: 11/26/17 00:06 Dose: 650 mg Fentanyl (Sublimaze) Confirm Administered Dose 100 mcg .ROUTE .STK-MED ONE Stop: 11/26/17 10:14 Lactated Ringer's (Ringers, Lactated) 1,000 mls @ 500 mls/hr IV .BOLUS [facility] Last Admin: 11/25/17 15:29 Dose: 500 mls/hr Pantoprazole Sodium 80 mg/ (Sodium Chloride) 100 mls @ 10 mls/hr IV Q10H [facility] Last Admin: 11/26/17 06:09 Dose: 10 mls/hr Potassium Chloride/Sodium Chloride (Normal Saline With 40 Meq Kcl) 1,000 mls @ 150 mls/hr IV ASDIRECTED [facility] Stop: 11/26/17 00:54 Last Admin: 11/25/17 18:43 Dose: 150 mls/hr Potassium Chloride 40 meq/ (Lactated Ringer's) 1,020 mls @ 125 mls/hr IV ASDIRECTED [facility] Stop: 11/26/17 09:59 Last Admin: 11/26/17 02:19 Dose: 125 mls/hr Potassium Chloride 40 meq/ (Lactated Ringer's) 1,020 mls @ 125 mls/hr IV Q8H [facility] Last Admin: 11/26/17 10:00 Dose: 125 mls/hr Lidocaine (Xylocaine-Mpf 2%) Confirm Administered Dose 5 ml .ROUTE .STK-MED ONE Stop: 11/26/17 10:14 Lorazepam (Ativan) 0.5 mg IVPUSH Q4H PRN PRN Reason: Anxiety Last Admin: 11/26/17 13:15 Dose: 0.5 mg Midazolam HCl (Versed 1 Mg/Ml) Confirm Administered Dose 2 mg .ROUTE .STK-MED ONE Stop: 11/26/17 10:14 Pantoprazole Sodium (Protonix Iv) 80 mg IVPUSH NOW ONE Stop: 11/25/17 18:06 Last Admin: 11/25/17 18:42 Dose: 80 mg Pantoprazole Sodium (Protonix Iv) 40 mg IV Q12H [facility] Last Admin: 11/26/17 13:01 Dose: 40 mg Propofol (Diprivan 20 Ml) Confirm Administered Dose 400 mg .ROUTE .STK-MED ONE Stop: 11/26/17 10:14 Sucralfate (Carafate) 1 gm PO Q6H [facility] Last Admin: 11/26/17 12:58 Dose: 1 gm <Elias Cortez J - Last Filed: 11/27/17 14:30> Discharge Summary - Patient Summary/Data Consults: Consultations 11/25/17 18:11 Consult to Physician [CONS] Routine - Patient Data Vitals - Most Recent: Last Vital Signs Temp 37.0 C 11/26/17 13:40 Pulse 68 11/26/17 13:40 Resp 16 11/26/17 13:40 BP 116/69 11/26/17 13:40 Pulse Ox 98 11/26/17 11:57 Orthostatic Blood Pressure [ 122/68 Standing] Orthostatic Blood Pressure [ 119/67 Sitting] Orthostatic Blood Pressure [ 118/67 Supine] Med Orders - Current: Current Medications Discontinued Medications Acetaminophen (Tylenol) Confirm Administered Dose 650 mg .ROUTE .STK-MED ONE Stop: 11/25/17 23:42 Last Admin: 11/25/17 23:56 Dose: Not Given Acetaminophen (Tylenol) 650 mg PO Q4H PRN PRN Reason: Pain Last Admin: 11/26/17 00:06 Dose: 650 mg Fentanyl (Sublimaze) Confirm Administered Dose 100 mcg .ROUTE .STK-MED ONE Stop: 11/26/17 10:14 Lactated Ringer's (Ringers, Lactated) 1,000 mls @ 500 mls/hr IV .BOLUS [facility] Last Admin: 11/25/17 15:29 Dose: 500 mls/hr Pantoprazole Sodium 80 mg/ (Sodium Chloride) 100 mls @ 10 mls/hr IV Q10H [facility] Last Admin: 11/26/17 06:09 Dose: 10 mls/hr Potassium Chloride/Sodium Chloride (Normal Saline With 40 Meq Kcl) 1,000 mls @ 150 mls/hr IV ASDIRECTED [facility] Stop: 11/26/17 00:54 Last Admin: 11/25/17 18:43 Dose: 150 mls/hr Potassium Chloride 40 meq/ (Lactated Ringer's) 1,020 mls @ 125 mls/hr IV ASDIRECTED [facility] Stop: 11/26/17 09:59 Last Admin: 11/26/17 02:19 Dose: 125 mls/hr Potassium Chloride 40 meq/ (Lactated Ringer's) 1,020 mls @ 125 mls/hr IV Q8H [facility] Last Admin: 11/26/17 10:00 Dose: 125 mls/hr Lidocaine (Xylocaine-Mpf 2%) Confirm Administered Dose 5 ml .ROUTE .STK-MED ONE Stop: 11/26/17 10:14 Lorazepam (Ativan) 0.5 mg IVPUSH Q4H PRN PRN Reason: Anxiety Last Admin: 11/26/17 13:15 Dose: 0.5 mg Midazolam HCl (Versed 1 Mg/Ml) Confirm Administered Dose 2 mg .ROUTE .STK-MED ONE Stop: 11/26/17 10:14 Pantoprazole Sodium (Protonix Iv) 80 mg IVPUSH NOW ONE Stop: 11/25/17 18:06 Last Admin: 11/25/17 18:42 Dose: 80 mg Pantoprazole Sodium (Protonix Iv) 40 mg IV Q12H [facility] Last Admin: 11/26/17 13:01 Dose: 40 mg Propofol (Diprivan 20 Ml) Confirm Administered Dose 400 mg .ROUTE .STK-MED ONE Stop: 11/26/17 10:14 Sucralfate (Carafate) 1 gm PO Q6H [facility] Last Admin: 11/26/17 12:58 Dose: 1 gm - Free Text/Narrative Note: I have examined the patient. I have discussed findings and treatment plan with the resident. I agree with the assessment and plan outlined in the following resident's note.
== END 2017-11-26 14:40 | disposition home or self-care (01) | DRG 378 ==
LOC: MW.ED 14:53 → MW.MS 17:36
PROVIDERS: ADMIT Internal Medicine; ATTEND Internal Medicine
PROC: 30233N1 Transfusion of Nonautologous Red Blood Cells into Peripheral Vein, Percutaneous Approach (ICD-10-PCS; 2017-11-25)
PROC: 0DB78ZX Excision of Stomach, Pylorus, Via Natural or Artificial Opening Endoscopic, Diagnostic (ICD-10-PCS; principal; 2017-11-26)
DX: K25.4 Chronic or unspecified gastric ulcer with hemorrhage (principal); D62 Acute posthemorrhagic anemia; E87.6 Hypokalemia; F41.9 Anxiety disorder, unspecified; H54.7 Unspecified visual loss; F17.210 Nicotine dependence, cigarettes, uncomplicated; K29.70 Gastritis, unspecified, without bleeding; Z88.1 Allergy status to other antibiotic agents; Z90.710 Acquired absence of both cervix and uterus; Z88.0 Allergy status to penicillin; Z79.899 Other long term (current) drug therapy
CPT/HCPCS: 00731; 36415; 36430; 71046; 71046-26; 80053; 80305; 81003; 82375; 83605; 85014; 85018; 85025; 86850; 86900; 86901; 86920; 86921; 86922; 87804; 88305; 88312; 93005; 96360; 96361; 99283; 99285-25; A9270-GY; C9113; J2060; J2250; J2704; J3010; J3480; J7030; J7120; P9016

== ENCOUNTER 2018-05-14 07:12 | Day surgery (SDC) | payer OTHER ==
[~2018-05-14 07:12] MED LIST: Lactated Ringers 1,000 ML IV SCH
[2018-05-14] MEDS ORDERED: Propofol 200 MG/20 ML SDV ONE ×3 (07:23→09:04)
[2018-05-14] MEDS ORDERED: Midazolam 1 MG/ML 2 ML SDV ONE (07:24)
[2018-05-14] MEDS ORDERED: fentaNYL 100 MCG/2 ML SDV ONE (07:24)
--- NOTE | 2018-05-14 07:53 | PCM.PREANE ---
Preanesthetic Assessment - Anesthesia/Transfusion/Family Hx Anesthesia History: Prior Anesthesia Without Reaction Family History of Anesthesia Reaction: No Transfusion History: Prior Transfusion Without Reaction Intubation History: Unknown - Review of Systems General: No Symptoms Pulmonary: No Symptoms Cardiovascular: No Symptoms Gastrointestinal: No Symptoms Neurological: No Symptoms Other: Reports: None - Physical Assessment O2 Sat by Pulse Oximetry: 95 Respiratory Rate: 20 Vital Signs: Last Vital Signs Temp 36.3 C 05/14/18 07:30 Pulse 105 H 05/14/18 07:30 Resp 20 05/14/18 07:30 BP 141/83 H 05/14/18 07:30 Pulse Ox 95 05/14/18 07:30 Height: 1.68 m Weight: 59.874 kg ASA Class: 2 Mental Status: Alert & Oriented x3 Airway Class: Mallampati = 2 Dentition: Reports: [place](s) (multiple upper front) Thyro-Mental Finger Breadths: 3 Mouth Opening Finger Breadths: 3 ROM/Head Extension: Full Lungs: Clear to Auscultation, Normal Respiratory Effort Cardiovascular: Regular Rate, Regular Rhythm - Allergies Allergies/Adverse Reactions: Allergies Allergy/AdvReac Type Severity Reaction Status Date / Time clarithromycin [From Biaxin] Allergy Hallucinati Verified 05/11/18 12:30 ons desvenlafaxine Allergy Anxiety Verified 05/11/18 12:30 doxycycline Allergy Nausea and Verified 05/11/18 12:30 Vomiting rofecoxib Allergy Cannot Verified 05/11/18 12:30 Remember topiramate Allergy Cannot Verified 05/11/18 12:30 Remember - Blood Blood Available: No - Anesthesia Plan Pre-Op Medication Ordered: None - Acknowledgements Anesthesia Type Planned: MAC Pt an Appropriate Candidate for the Planned Anesthesia: Yes Alternatives and Risks of Anesthesia Discussed w Pt/Guardian: Yes Pt/Guardian Understands and Agrees with Anesthesia Plan: Yes PreAnesthesia Questionnaire HEENT History: Reports: Other (See Below) Other HEENT History: wears reading glasses Cardiovascular History: Reports: High Cholesterol Respiratory History: Reports: Other (See Below) (Smoker 40+ years, 1PPD) Gastrointestinal History: Reports: GI Bleed, PUD Genitourinary History: Reports: None 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: Endometriosis Musculoskeletal History: Reports: Fracture, Other (See Below) Other Musculoskeletal History: hx of fx wrist, has tendonitis of left ankle Neurological History: Reports: None Psychiatric History: Reports: Anxiety Endocrine/Metabolic History: Reports: Other (See Below) Other Endocrine/Metabolic History: possibly has overactive thyroid Hematologic History: Reports: Blood Transfusion(s) Immunologic History: Reports: None Oncologic (Cancer) History: Reports: None Dermatologic History: Reports: None - Infectious Disease History Infectious Disease History: Reports: Chicken Pox, Measles - Past Surgical History HEENT Surgical History: Reports: Other (See Below) Other HEENT Surgeries/Procedures: hx of closed reduction of fx nose GI Surgical History: Reports: Appendectomy, EGD (12/10 - 2 small gastric ulcers) Female Surgical History: Reports: Cystectomy (ovarian), Hysterectomy - History Comment History Comment: History of anxiety. Denies any prior cardiac or pulmonary diseases or problems. No hisotry of diabetes or HTN. - SUBSTANCE USE Smoking Status *Q: Current Every Day Smoker (down to 1/2 ppd, trying to quit) Tobacco Use Within Last Twelve Months: Cigarettes Recreational Drug Use History: No - HOME MEDS Home Medications: Home Meds LORazepam 1 mg PO TID 11/25/17 [History] Celecoxib 200 mg PO DAILY 05/11/18 [History] Krill/Om-3/DHA/EPA/Phospho/Ast [Megared [place]-3 Krill Oil Sfgl] 1 cap PO DAILY 05/11/18 [History] Multivitamin [Multiple Vitamins] 1 tab PO DAILY 05/11/18 [History] Pantoprazole Sodium 40 mg PO DAILY 05/11/18 [History] atorvaSTATin Calcium [Atorvastatin Calcium] 10 mg PO DAILY 05/11/18 [History] - CURRENT (IN HOUSE) MEDS Current Meds: Current Medications Lactated Ringer's (Ringers, Lactated) 1,000 mls @ 125 mls/hr IV ASDIRECTED KEYSHA Discontinued Medications Fentanyl (Sublimaze) Confirm Administered Dose 100 mcg .ROUTE .STK-MED ONE Stop: 05/14/18 07:25 Midazolam HCl (Versed 1 Mg/Ml) Confirm Administered Dose 2 mg .ROUTE .STK-MED ONE Stop: 05/14/18 07:25 Propofol (Diprivan 20 Ml) Confirm Administered Dose 200 mg .ROUTE .STK-MED ONE Stop: 05/14/18 07:24
[2018-05-14] MEDS ORDERED: Ondansetron 4 MG/2 ML SDV IVPUSH PRN (09:16)
[2018-05-14] MEDS ORDERED: Sodium Chloride 0.9% 2.5 ML Syringe FLUSH PRN (09:16)
[2018-05-14] MEDS ORDERED: Sodium Chloride 0.9% 10 ML Syringe FLUSH PRN (09:16)
--- NOTE | 2018-05-14 09:19 | PCM.OPNOTE ---
- General Post-Op/Procedure Note Date of Surgery/Procedure: 05/14/18 Operative Procedure(s): Colonoscopy Pre Op Diagnosis: Desire for colorectal cancer screening Post-Op Diagnosis: Pancolonic diverticulosis Anesthesia Technique: MAC (ASA II) Primary Surgeon: Ajay Cowan Sheet Metal Roofer: Iain Barrett Condition: Good Free Text/Narrative:: DICTATION [id number] CPT CODE 01724
--- NOTE | 2018-05-14 09:24 | PCM.POSTAN ---
POST ANESTHESIA ASSESSMENT - MENTAL STATUS Mental Status: Alert, Oriented - VITAL SIGNS Pulse Rate: 88 SaO2: 98 Resp Rate: 20 Blood Pressure: 121/78 - RESPIRATORY Respiratory Status: Respiratory Rate WNL, Airway Patent, O2 Saturation Stable - CARDIOVASCULAR CV Status: Pulse Rate WNL, Blood Pressure Stable - GASTROINTESTINAL GI Status: No Symptoms - PAIN Pain Score: 0 - POST OP HYDRATION Hydration Status: Adequate & Stable
[2018-05-14] MEDS ORDERED: Ondansetron 4 MG/2 ML SDV IVPUSH ONE (09:33)
--- NOTE | 2018-05-14 09:48 | PCM48HPAN ---
Post Anesthesia Note - EVALUATION WITHIN 48HRS OF ANESTHETIC Vital Signs in Normal Range: Yes Patient Participated in Evaluation: Yes Respiratory Function Stable: Yes Airway Patent: Yes Cardiovascular Function Stable: Yes Hydration Status Stable: Yes Pain Control Satisfactory: Yes Nausea and Vomiting Control Satisfactory: Yes Mental Status Recovered: Yes Pulse Rate: 88 Resp Rate: 16 Blood Pressure: 121/78 - COMMENTS/OBSERVATIONS Free Text/Narrative:: no anesthesia problems
--- NOTE | 2018-05-14 13:22 | OR ---
SURGEON: Ajay Cowan M.D. DATE OF PROCEDURE: 05/14/2018 OPERATION PERFORMED: Colonoscopy. ANESTHESIA: MAC. ASA CLASSIFICATION: II. DIAGRAMMER: Dr. Bahena. PREOPERATIVE DIAGNOSIS: Desire for colorectal cancer screening. POSTOPERATIVE DIAGNOSIS: Pancolonic diverticulosis. DESCRIPTION OF PROCEDURE: The patient was taken to the endoscopy room and positioned on the endoscopy table in the left lateral decubitus position. Time-out was called for appropriate identification of the patient and procedure. Monitored anesthesia care was provided. The colonoscope was inserted into the rectum and advanced with moderate difficulty to the cecum. Despite multiple maneuvers, I was never able to retroflex the colonoscope in the cecum. Diverticular changes were noted beginning in the proximal ascending colon. Cecum, ascending colon, hepatic flexure, transverse colon, splenic flexure, descending colon, sigmoid colon, and rectum were quite well visualized. The most significant area of diverticulosis is in the sigmoid colon. There were no angiodysplastic changes. There was no evidence of inflammatory bowel disease. Once the colonoscope was withdrawn to the rectum, it was retroflexed to visualize the anal orifice from above. No tumors, polyps, or acute hemorrhoidal changes were noted. The colonoscope was then straightened, the rectum aspirated, and the colonoscope removed. The patient tolerated the procedure well and was taken to recovery room in satisfactory condition. JOYCE CELESTIN /[id number]
== END 2018-05-14 10:05 | disposition home or self-care (01) ==
LOC: MW.SDS 07:12
PROVIDERS: ATTEND Surgery
DX: Z12.11 Encounter for screening for malignant neoplasm of colon (principal); K57.30 Diverticulosis of large intestine without perforation or abscess without bleeding; F17.210 Nicotine dependence, cigarettes, uncomplicated; E78.00 Pure hypercholesterolemia, unspecified; F41.9 Anxiety disorder, unspecified; Z79.899 Other long term (current) drug therapy; Z88.1 Allergy status to other antibiotic agents
CPT/HCPCS: 45378; J2250; J2405; J2704; J3010; J7120

== ENCOUNTER 2018-09-27 12:26 | Emergency (ER) | payer OTHER ==
[2018-09-27] MEDS ORDERED: Sodium Chloride 0.9% 10 ML Syringe FLUSH PRN (12:35)
[2018-09-27] MEDS ORDERED: Ketorolac 30 MG/ML SDV IVPUSH ONE (12:35)
[2018-09-27] MEDS ORDERED: Sodium Chloride 0.9% 2.5 ML Syringe FLUSH PRN (12:35)
[2018-09-27] MEDS ORDERED: Morphine 2 MG/ML Syringe IVPUSH ONE (12:35)
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
[2018-09-27 13:12] LABS: CHLORIDE,CL 108 mmol/L (98-107); SODIUM,NA 144 mmol/L (136-145)
[2018-09-27] MEDS ORDERED: Sodium Chloride 0.9% 1,000 ML IV SCH (13:15)
--- NOTE | 2018-09-27 13:15 | CR ---
Indication: Fell. Shoveling snow. Technique: Two views of the left femur were obtained. Comparison: None Findings: An intertrochanteric left femoral fracture is identified. The femoral head is seated within the acetabulum. Degenerative changes identified. No other fractures are identified. Please note, lateral view of the femur was not obtained. Impression: Intertrochanteric left femoral fracture. Dictated by Donna Mccann MD @ Sep 27 2018 1:12PM Signed by Dr. Donna Mccann @ Sep 27 2018 1:13PM
--- NOTE | 2018-09-27 13:17 | CR ---
Indication: Fall shoveling snow. Technique: An AP view of the pelvis and two views of the left hip 14. Comparison: None Findings: Degenerative changes of the lower lumbar spine and both hips are identified. An intertrochanteric left femoral fracture is identified. There is varus angulation at the fracture. Impression: Intertrochanteric left femoral fracture. Dictated by Donna Mccann MD @ Sep 27 2018 1:14PM Signed by Dr. Donna Mccann @ Sep 27 2018 1:15PM
--- NOTE | 2018-09-27 13:22 | CR ---
Indication: Fall. Hip fracture. Technique: The single AP view of the chest was obtained. Comparison: None Findings: The heart is normal in size. The lungs are clear. No infiltrate, pleural effusion, or pneumothorax is identified. Impression: No acute cardiopulmonary process. Dictated by Donna Mccann MD @ Sep 27 2018 1:20PM Signed by Dr. Donna Mccann @ Sep 27 2018 1:20PM
== END 2018-09-27 13:57 ==
LOC: MW.ED 12:26
DX: S72.142A Displaced intertrochanteric fracture of left femur, initial encounter for closed fracture (principal); W00.9XXA Unspecified fall due to ice and snow, initial encounter
CPT/HCPCS: 36415; 71045; 73502; 73551; 80053; 85025; 85610; 93005; 96374; 96375; 99285; J1885; J2270; J7040

== ENCOUNTER 2018-11-08 10:25 | Emergency (ER) | payer OTHER ==
[2018-11-08] MEDS ORDERED: Ondansetron 4 MG/2 ML SDV IVPUSH ONE (10:32)
[2018-11-08] MEDS ORDERED: LORazepam 1 MG Tab PO ONE (10:32)
[2018-11-08] MEDS ORDERED: Sodium Chloride 0.9% 1,000 ML IV ONE (10:32)
--- NOTE | 2018-11-08 10:37 | EDM.PDOC ---
ED HPI GENERAL MEDICAL PROBLEM - General Chief Complaint: Gastrointestinal Problem Stated Complaint: FLU Time Seen by Provider: 11/08/18 10:28 Source of Information: Reports: Patient History Limitations: Reports: No Limitations - History of Present Illness INITIAL COMMENTS - FREE TEXT/NARRATIVE: HISTORY AND PHYSICAL: History of present illness: Patient is a 63-year-old female who presents to the emergency room with complaints of generalized body aches, nausea and fatigue. She states she feels she has the flu. She does have a long-standing history of anxiety and usually takes Ativan by mouth. She states she's been out of this medication for approximately one week and feels that her "anxiety is creeping up". She states that the more she thinks about not feeling well the more anxious she feels. She has had nausea with some dry heaving, but no vomiting. She did have one loose stool yesterday but no concerns of diarrhea or blood in her stools. She denies any fever, chills, chest pain, shortness of breath or cough. She denies any abdominal pain, diarrhea, constipation or dysuria. Review of systems: As per history of present illness and below otherwise all systems reviewed and negative. Past medical history: As per history of present illness and as reviewed below otherwise noncontributory. Surgical history: As per history of present illness and as reviewed below otherwise noncontributory. Social history: See social history for further information Family history: As per history of present illness and as reviewed below otherwise noncontributory. Physical exam: General: Well-developed and well-nourished 63-year-old female. Alert and oriented. Anxious during the interviewing and physical examination process. Nontoxic appearing and in no acute distress. HEENT: Atraumatic, normocephalic, pupils equal and reactive bilaterally, negative for conjunctival pallor or scleral icterus, mucous membranes moist, TMs normal bilaterally, throat clear, neck supple, nontender, trachea midline. No drooling or trismus noted. No meningeal signs. No hot potato voice noted. Lungs: Clear to auscultation, breath sounds equal bilaterally, chest nontender. Heart: S1S2, regular rate and rhythm without overt murmur Abdomen: Soft, nondistended, nontender. Negative for masses or hepatosplenomegaly. Negative for costovertebral tenderness. Pelvis: Stable nontender. Genitourinary: Deferred. Rectal: Deferred. Skin: Intact, warm, dry. No lesions or rashes noted. Extremities: Atraumatic, negative for cords or calf pain. Neurovascular unremarkable. Neuro: Awake, alert, oriented. Cranial nerves II through XII unremarkable. Cerebellum unremarkable. Motor and sensory unremarkable throughout. Exam nonfocal. Notes: Lab work is unremarkable. Patient does feel improved after the IV medications and fluids. Encouraged her to follow-up with her primary care provider, Dr. Greenberg as she states she has been out of her Ativan. Symptoms are likely viral. Supportive care measures were reviewed and discussed. Voices understanding and is agreeable to plan of care. Denies any further questions or concerns at this time. Diagnostics: CBC, CMP, influenza Therapeutics: IV fluid, Zofran, Ativan Prescription: Zofran 4mg ODT (#6) Ativan 0.5mg (#10) Impression: Viral Illness Anxiety Plan: 1. Clear liquids and advance as tolerated. He may use the Zofran as directed. 2. Take the next 1-2 days to rest. You may use Tylenol and/or ibuprofen as needed for pain and fever management. 3. Follow-up with Dr. Greenberg for reevaluation and medication management of your anxiety. Return to the ED as needed and as discussed. Definitive disposition and diagnosis as appropriate pending reevaluation and review of above. - Related Data Allergies Allergy/AdvReac Type Severity Reaction Status Date / Time clarithromycin [From Biaxin] Allergy Hallucinati Verified 11/08/18 10:33 ons desvenlafaxine Allergy Anxiety Verified 11/08/18 10:33 doxycycline Allergy Nausea and Verified 11/08/18 10:33 Vomiting rofecoxib Allergy Cannot Verified 11/08/18 10:33 Remember topiramate Allergy Cannot Verified 11/08/18 10:33 Remember Home Meds: Home Meds LORazepam 1 mg PO TID 11/25/17 [History] Celecoxib 200 mg PO DAILY 05/11/18 [History] Krill/Om-3/DHA/EPA/Phospho/Ast [Megared [place]-3 Krill Oil Sfgl] 1 cap PO DAILY 05/11/18 [History] Multivitamin [Multiple Vitamins] 1 tab PO DAILY 05/11/18 [History] Pantoprazole Sodium 40 mg PO DAILY 05/11/18 [History] atorvaSTATin Calcium [Atorvastatin Calcium] 10 mg PO DAILY 05/11/18 [History] Aspirin [Adult Aspirin] 81 mg PO DAILY 09/27/18 [History] Past Medical History HEENT History: Reports: Impaired Vision Other HEENT History: wears reading glasses Cardiovascular History: Reports: None Respiratory History: Reports: Other (See Below) Gastrointestinal History: Reports: Other (See Below) Genitourinary History: Reports: None ADULT MANAGER History: Reports: None Musculoskeletal History: Reports: Other (See Below) Other Musculoskeletal History: hx of fx wrist, has tendonitis of left ankle Neurological History: Reports: None Psychiatric History: Reports: Anxiety Endocrine/Metabolic History: Reports: None Other Endocrine/Metabolic History: possibly has overactive thyroid Hematologic History: Reports: Anemia, Blood Transfusion(s) Immunologic History: Reports: None Oncologic (Cancer) History: Reports: None Dermatologic History: Reports: None - Infectious Disease History Infectious Disease History: Reports: Chicken Pox, Measles - Past Surgical History HEENT Surgical History: Reports: None GI Surgical History: Reports: Appendectomy Female Surgical History: Reports: Hysterectomy, Other (See Below) - History Comment History Comment: History of anxiety. Denies any prior cardiac or pulmonary diseases or problems. No hisotry of diabetes or HTN. Social & Family History - Family History Family Medical History: Noncontributory - Caffeine Use Caffeine Use: Reports: None ED ROS GENERAL - Review of Systems Review Of Systems: ROS reveals no pertinent complaints other than HPI. ED EXAM, GI/ABD - Physical Exam Exam: See Below (See dictation) Course - Vital Signs Last Recorded V/S: Last Vital Signs Temp 97.2 F 11/08/18 10:33 Pulse 74 11/08/18 11:21 Resp 18 11/08/18 11:21 BP 134/64 11/08/18 11:21 Pulse Ox 95 11/08/18 11:21 - Orders/Labs/Meds Orders: Active Orders 24 hr Category Date Time Status Sodium Chloride 0.9% [Normal Saline] 1,000 ml Med 11/08/18 10:32 Active IV STAT Medication Orders Sodium Chloride (Normal Saline) 1,000 mls @ 999 mls/hr IV STAT ONE Stop: 11/08/18 11:32 Last Admin: 11/08/18 10:45 Dose: 999 mls/hr Labs: Laboratory Tests 11/08/18 11/08/18 Range/Units 10:42 10:42 WBC 9.03 (4.0-11.0) K/uL RBC 4.83 (4.30-5.90) M/uL Hgb 14.6 (12.0-16.0) g/dL Hct 41.7 (36.0-46.0) % MCV 86.3 (80.0-98.0) fL MCH 30.2 (27.0-32.0) pg MCHC 35.0 (31.0-37.0) g/dL RDW Std Deviation 45.8 (28.0-62.0) fl RDW Coeff of [place] 15 (11.0-15.0) % Plt Count 359 (150-400) K/uL MPV 9.70 (7.40-12.00) fL Neut % (Auto) 80.8 H (48.0-80.0) % Lymph % (Auto) 15.3 L (16.0-40.0) % [place] % (Auto) 3.7 (0.0-15.0) % Eos % (Auto) 0.1 (0.0-7.0) % Baso % (Auto) 0.1 (0.0-1.5) % Neut # (Auto) 7.3 H (1.4-5.7) K/uL Lymph # (Auto) 1.4 (0.6-2.4) K/uL [place] # (Auto) 0.3 (0.0-0.8) K/uL Eos # (Auto) 0.0 (0.0-0.7) K/uL Baso # (Auto) 0.0 (0.0-0.1) K/uL Nucleated RBC % 0.0 /100WBC Nucleated RBCs # 0 K/uL Sodium 142 (136-145) mmol/L Potassium 3.5 (3.5-5.1) mmol/L Chloride 104 (98-107) mmol/L Carbon Dioxide 22.3 (21.0-32.0) mmol/L BUN 13 (7.0-18.0) mg/dL Creatinine 0.9 (0.6-1.0) mg/dL Est Cr Clr Drug Dosing 60.33 mL/min Estimated GFR (MDRD) > 60.0 ml/min Glucose 136 H (74-106) mg/dL Calcium 9.6 (8.5-10.1) mg/dL Total Bilirubin 0.9 (0.2-1.0) mg/dL AST 8 L (15-37) IU/L ALT 15 (14-63) IU/L Alkaline Phosphatase 138 H (46-116) U/L Total Protein 7.2 (6.4-8.2) g/dL Albumin 3.8 (3.4-5.0) g/dL Globulin 3.4 (2.6-4.0) g/dL Albumin/Globulin Ratio 1.1 (0.9-1.6) Meds: Medications Generic Name Dose Route Start Last Admin Trade Name Freq PRN Reason Stop Dose Admin Sodium Chloride 1,000 mls @ 999 mls/hr 11/08/18 10:32 11/08/18 10:45 Normal Saline IV 11/08/18 11:32 999 mls/hr STAT ONE Administration Discontinued Medications Generic Name Dose Route Start Last Admin Trade Name Freq PRN Reason Stop Dose Admin Lorazepam 1 mg 11/08/18 10:32 11/08/18 10:48 Ativan PO 11/08/18 10:33 1 mg ONETIME ONE Administration Ondansetron HCl 4 mg 11/08/18 10:32 11/08/18 10:45 Zofran IVPUSH 11/08/18 10:33 4 mg ONETIME ONE Administration Departure - Departure Time of Disposition: 11:22 Disposition: Home, Self-Care 01 Clinical Impression: Viral illness, Anxiety - Discharge Information Instructions: Viral Illness, Adult Referrals: PCP,Unknown [Primary Care Provider] - Forms: ED Department Discharge Additional Instructions: The following information is given to patients seen in the emergency department who are being discharged to home. This information is to outline your options for follow-up care. We provide all patients seen in our emergency department with a follow-up referral. The need for follow-up, as well as the timing and circumstances, are variable depending upon the specifics of your emergency department visit. If you don't have a primary care physician on staff, we will provide you with a referral. We always advise you to contact your personal physician following an emergency department visit to inform them of the circumstance of the visit and for follow-up with them and/or the need for any referrals to a consulting specialist. The emergency department will also refer you to a specialist when appropriate. This referral assures that you have the opportunity for follow-up care with a specialist. All of these measure are taken in an effort to provide you with optimal care, which includes your follow-up. Under all circumstances we always encourage you to contact your private physician who remains a resource for coordinating your care. When calling for follow-up care, please make the office aware that this follow-up is from your recent emergency room visit. If for any reason you are refused follow-up, please contact the [facility] Emergency Department at and asked to speak to the emergency department charge nurse. [facility] [address] [place] [id number] [address] 1. Clear liquids and advance as tolerated. He may use the Zofran as directed. 2. Take the next 1-2 days to rest. You may use Tylenol and/or ibuprofen as needed for pain and fever management. 3. Follow-up with Dr. Greenberg for reevaluation and medication management of your anxiety. Return to the ED as needed and as discussed. - My Orders Last 24 Hours: My Active Orders 11/08/18 10:32 Sodium Chloride 0.9% [Normal Saline] 1,000 ml IV STAT - Assessment/Plan Last 24 Hours: My Active Orders 11/08/18 10:32 Sodium Chloride 0.9% [Normal Saline] 1,000 ml IV STAT
[2018-11-08 11:14] LABS: CHLORIDE,CL 104 mmol/L (98-107); SODIUM,NA 142 mmol/L (136-145)
[2018-11-08] MEDS ORDERED: Hydrogen Peroxide 3% Top Soln 473 ML Bottle ONE (11:27)
== END 2018-11-08 11:56 | disposition home or self-care (01) ==
LOC: MW.ED 10:25
DX: B34.9 Viral infection, unspecified (principal); F41.9 Anxiety disorder, unspecified; Z79.899 Other long term (current) drug therapy; Z88.8 Allergy status to other drugs, medicaments and biological substances
CPT/HCPCS: 36415; 80053; 85025; 87804; 96361; 96374; 99283; A9270; J2405; J7040

== ENCOUNTER 2019-12-11 05:30 | Emergency (ER) | payer OTHER ==
--- NOTE | 2019-12-11 05:51 | EDM.PDOC ---
ED HPI GENERAL MEDICAL PROBLEM - General Chief Complaint: ENT Problem Stated Complaint: TOOTHACHE Time Seen by Provider: 12/11/19 05:31 Source of Information: Reports: Patient History Limitations: Reports: No Limitations - History of Present Illness INITIAL COMMENTS - FREE TEXT/NARRATIVE: HISTORY OF PRESENT ILLNESS: Patient is a 64-year-old female who complains of one-week history of right lower dental pain. Patient has multiple missing teeth and poor dentition. She has not been able to see her dentist due to COVID -19 crisis. She denies any fevers or chills. No face swelling. No difficulty swallowing or breathing. Denies any rash. She is requesting antibiotics and pain medication. Is otherwise been in normal state of health. REVIEW OF SYSTEMS: Other than the symptoms associated with the present events, the following is reported with regard to recent health: General: (-) fever. HENT: (-) congestion. Respiratory: (-) cough. Cardiovascular: (-) chest pain. GI: (-) abdominal pain. : (-) urinary complaints. Musculoskeletal: (-) other aches or pains. Endocrine: (-) generalized weakness. Neurological: (-) localized weakness. Skin: (-) rash PAST MEDICAL HISTORY: reviewed as per nursing notes SOCIAL HISTORY: reviewed as per nursing notes, MEDICATIONS: Per nurse's note ALLERGIES: Per nurse's note, reviewed by me PHYSICAL EXAMINATION: GENERALIZED APPEARANCE: well developed, well nourished in no distress VITAL SIGNS: Per nurse's note, reviewed by me SKIN: Warm, dry; (-) cyanosis; (-) rash. HEAD: (-) scalp swelling, (-) tenderness. EYES: (-) conjunctival pallor, (-) scleral icterus. ENMT: (-) stridor; mucous membranes moist. poor dentition, multiple missing teeth. Right lower gingiva erythema and tenderness without any fluctuance or gross abscess. no facial swelling. uvula midline. airway patent. NECK: (-) tenderness, (-) stiffness, CHEST AND RESPIRATORY: (-) rales, (-) rhonchi, (-) wheezes; breath sounds equal bilaterally. HEART AND CARDIOVASCULAR: (-) irregularity; (-) murmur, (-) gallop. ABDOMEN AND GI: Soft; (-) tenderness, (-) guarding, (-) rebound, (-) palpable masses, EXTREMITIES: (-) deformity, (-) edema. NEURO AND PSYCH: Alert. Cranial nerves grossly intact; strength symmetric. gait steady EMERGENCY DEPARTMENT COURSE AND TREATMENT: Patient's condition remained stable during Emergency Department evaluation. Patient presents with acute dentalgia. There is no obvious dental abscess on exam. There is no trismus and the patient is tolerating PO fluids. There is no obvious facial cellulitis. A referral was given to a dental clinic/dentist and the patient understands need to follow up in 1-2 days. Instructions were given to return for worsening pain, facial swelling, SOB, or not tolerating fluids. They were discharged with antibiotics and analgesia. PLAN AND FOLLOW-UP: Patient received written and verbal instructions regarding this condition. Return to ED immediately with any new or worsening symptoms. Follow up to be arranged by patient with pcp and dentist in 1-2 days for further evaluation. Given discharge precautions. patient expressed verbal understanding. Tooth/Teeth Pain Score (Numeric/FACES): 8 - Related Data Allergies Allergy/AdvReac Type Severity Reaction Status Date / Time clarithromycin [From Biaxin] Allergy Hallucinati Verified 12/11/19 05:44 ons desvenlafaxine Allergy Anxiety Verified 12/11/19 05:44 doxycycline Allergy Nausea and Verified 12/11/19 05:44 Vomiting rofecoxib Allergy Cannot Verified 12/11/19 05:44 Remember topiramate Allergy Cannot Verified 12/11/19 05:44 Remember Home Meds: Home Meds LORazepam 1 mg PO TID 11/25/17 [History] Celecoxib 200 mg PO DAILY 05/11/18 [History] Krill/Om-3/DHA/EPA/Phospho/Ast [Megared [place]-3 Krill Oil Sfgl] 1 cap PO DAILY 05/11/18 [History] Multivitamin [Multiple Vitamins] 1 tab PO DAILY 05/11/18 [History] Pantoprazole Sodium 40 mg PO DAILY 05/11/18 [History] atorvaSTATin Calcium [Atorvastatin Calcium] 10 mg PO DAILY 05/11/18 [History] Aspirin [Adult Aspirin] 81 mg PO DAILY 09/27/18 [History] Acetaminophen/oxyCODONE [Percocet 325-5 MG] 1 each PO Q6HR #10 tab 12/11/19 [Rx] Penicillin V Potassium 500 mg PO Q6HR #28 tab 12/11/19 [Rx] Past Medical History HEENT History: Reports: Impaired Vision, Other (See Below) Other HEENT History: wears reading glasses, missing most of teeth Cardiovascular History: Reports: None Respiratory History: Reports: Other (See Below) Gastrointestinal History: Reports: Other (See Below) Genitourinary History: Reports: None PORT ENGINEER History: Reports: None Musculoskeletal History: Reports: Other (See Below) Other Musculoskeletal History: hx of fx wrist, has tendonitis of left ankle Neurological History: Reports: None Psychiatric History: Reports: Anxiety Endocrine/Metabolic History: Reports: Other (See Below) Other Endocrine/Metabolic History: possibly has overactive thyroid Hematologic History: Reports: Anemia, Blood Transfusion(s) Immunologic History: Reports: None Oncologic (Cancer) History: Reports: None Dermatologic History: Reports: None - Infectious Disease History Infectious Disease History: Reports: Chicken Pox, Measles - Past Surgical History Head Surgeries/Procedures: Reports: None HEENT Surgical History: Reports: None GI Surgical History: Reports: Appendectomy Female Surgical History: Reports: Hysterectomy, Other (See Below) - History Comment History Comment: History of anxiety. Denies any prior cardiac or pulmonary diseases or problems. No hisotry of diabetes or HTN. Social & Family History - Family History Family Medical History: Noncontributory - Tobacco Use Smoking Status *Q: Current Every Day Smoker Years of Tobacco use: 40 Packs/Tins Daily: 1 - Caffeine Use Caffeine Use: Reports: None - Recreational Drug Use Recreational Drug Use: No ED ROS GENERAL - Review of Systems Review Of Systems: See Below (see dictation) ED EXAM, GENERAL - Physical Exam Exam: See Below (see dictation) Course - Vital Signs Last Recorded V/S: Last Vital Signs Temp 97.6 F 12/11/19 05:33 Pulse 86 12/11/19 05:33 Resp 16 12/11/19 05:33 BP 118/72 12/11/19 05:33 Pulse Ox 97 12/11/19 05:33 Departure - Departure Time of Disposition: 05:50 Disposition: Home, Self-Care 01 Condition: Good Clinical Impression: Pain, dental - Discharge Information *PRESCRIPTION DRUG MONITORING PROGRAM REVIEWED*: Not Applicable *COPY OF PRESCRIPTION DRUG MONITORING REPORT IN PATIENT MELISSA: Not Applicable Prescriptions: Acetaminophen/oxyCODONE [Percocet 325-5 MG] 1 each PO Q6HR #10 tab Penicillin V Potassium 500 mg PO Q6HR #28 tab Instructions: Dental Abscess, Preventive Dental Care, Adult Referrals: Josse Che MD [Primary Care Provider] - 2 Days Forms: ED Department Discharge Additional Instructions: The following information is given to patients seen in the emergency department who are being discharged to home. This information is to outline your options for follow-up care. We provide all patients seen in our emergency department with a follow-up referral. The need for follow-up, as well as the timing and circumstances, are variable depending upon the specifics of your emergency department visit. If you don't have a primary care physician on staff, we will provide you with a referral. We always advise you to contact your personal physician following an emergency department visit to inform them of the circumstance of the visit and for follow-up with them and/or the need for any referrals to a consulting specialist. The emergency department will also refer you to a specialist when appropriate. This referral assures that you have the opportunity for follow-up care with a specialist. All of these measure are taken in an effort to provide you with optimal care, which includes your follow-up. Under all circumstances we always encourage you to contact your private physician who remains a resource for coordinating your care. When calling for follow-up care, please make the office aware that this follow-up is from your recent emergency room visit. If for any reason you are refused follow-up, please contact the [facility] Emergency Department at and asked to speak to the emergency department charge nurse. Sepsis Event Note - Evaluation Sepsis Screening Result: No Definite Risk - Focused Exam Vital Signs: Vital Signs Temp Pulse Resp BP Pulse Ox 12/11/19 05:33 97.6 F 86 16 118/72 97 Date Exam was Performed: 12/11/19 Time Exam was Performed: 05:51
== END 2019-12-11 05:50 | disposition home or self-care (01) ==
LOC: MW.ED 05:30
DX: K08.89 Other specified disorders of teeth and supporting structures (principal); K00.7 Teething syndrome; F41.9 Anxiety disorder, unspecified; F17.210 Nicotine dependence, cigarettes, uncomplicated; Z88.1 Allergy status to other antibiotic agents; Z88.8 Allergy status to other drugs, medicaments and biological substances; Z79.899 Other long term (current) drug therapy; Z79.82 Long term (current) use of aspirin
CPT/HCPCS: 99282

== ENCOUNTER 2020-06-04 14:41 | Emergency (ER) | payer OTHER ==
--- NOTE | 2020-06-04 16:36 | EDM.PDOC ---
ED HPI GENERAL MEDICAL PROBLEM - General Chief Complaint: General Stated Complaint: medical clearance Time Seen by Provider: 06/04/20 15:13 Source of Information: Reports: Patient History Limitations: Reports: No Limitations - History of Present Illness INITIAL COMMENTS - FREE TEXT/NARRATIVE: HISTORY AND PHYSICAL: History of present illness: Patient is a 65-year-old female who presents to the ED today in law enforcement custody for medical screening for incarceration. Patient states that she has no symptoms or concerns at this time. Patient denies fever, chills, chest pain, shortness of breath, or cough. Denies headache, neck stiff ness, change in vision, syncope, or near syncope. Denies nausea, vomiting, abdominal pain, diarrhea, constipation, or dysuria. Has not noted any blood in urine or stool. Patient has been eating and drinking appropriately. Review of systems: As per history of present illness and below otherwise all systems reviewed and negative. Past medical history: As per history of present illness and as reviewed below otherwise noncontributory. Surgical history: As per history of present illness and as reviewed below otherwise noncontributo ry. Social history: See social history for further information Family history: As per history of present illness and as reviewed below otherwise noncontributory. Physical exam: General: Patient is alert, oriented, and in no acute distress. Patient sitting comfortably on exam table. HEENT: Atraumatic, normocephalic, pupils equal and reactive bilaterally, negative for conjunctival pallor or scleral icterus, mucous membranes moist, TMs normal bilaterally, throat clear, neck supple, nontender, trachea midline. No drooling or trismus noted. No meningeal signs. No hot potato voice noted. Lungs: Clear to auscultation, breath sounds equal bilaterally, chest nontender. Heart: S1S2, regular rate and rhythm without overt murmur Abdomen: Soft, nondistended, nontender. Negative for masses or hepa tosplenomegaly. Negative for costovertebral tenderness. Pelvis: Stable nontender. Genitourinary: Deferred. Rectal: Deferred. Skin: Intact, warm, dry. No lesions or rashes noted. Extremities: Atraumatic, negative for cords or calf pain. Neurovascular unremarkable. Neuro: Awake, alert, oriented. Cranial nerves II through XII unremarkable. Cerebellum unremarkable. Motor and sensory unremarkable throughout. Exam nonfocal. Notes: Discussed importance for follow-up with a primary care provider Voices understanding and is agreeable to plan of care. Denies any further questions or concerns at this time. Diagnostics: Bedside glucose Therapeutics: None Prescription: None Impression: Medically screened for incarceration Plan: Discharged to law enforcement custody Definitive disposition and diagnosis as appropriate pending reevaluation and review of above. - Related Data Allergies Allergy/AdvReac Type Severity Reaction Status Date / Time clarithromycin [From Biaxin] Allergy Hallucinati Verified 06/04/20 14:57 ons desvenlafaxine Allergy Anxiety Verified 06/04/20 14:57 doxycycline Allergy Nausea and Verified 06/04/20 14:57 Vomiting rofecoxib Allergy Cannot Verified 06/04/20 14:57 Remember topiramate Allergy Cannot Verified 06/04/20 14:57 Remember Home Meds: Home Meds LORazepam 1 mg PO TID 11/25/17 [History] Celecoxib 200 mg PO DAILY 05/11/18 [History] Multivitamin [Multiple Vitamins] 1 tab PO DAILY 05/11/18 [History] atorvaSTATin Calcium [Atorvastatin Calcium] 10 mg PO DAILY 05/11/18 [History] Aspirin [Adult Aspirin] 81 mg PO DAILY 09/27/18 [History] Past Medical History HEENT History: Reports: Impaired Vision, Other (See Below) Other HEENT History: wears reading glasses, missing most of teeth Cardiovascular History: Reports: None Respiratory History: Reports: Other (See Below) Gastrointestinal History: Reports: Other (See Below) Genitourinary History: Reports: None 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 DIPPER History: Reports: None Musculoskeletal History: Reports: Other (See Below) Other Musculoskeletal History: hx of fx wrist, has tendonitis of left ankle Neurological History: Reports: None Psychiatric History: Reports: Anxiety Endocrine/Metabolic History: Reports: Other (See Below) Other Endocrine/Metabolic History: possibly has overactive thyroid Hematologic History: Reports: Anemia, Blood Transfusion(s) Immunologic History: Reports: None Oncologic (Cancer) History: Reports: None Dermatologic History: Reports: None - Infectious Disease History Infectious Disease History: Reports: Chicken Pox, Measles, Mumps - Past Surgical History Head Surgeries/Procedures: Reports: None HEENT Surgical History: Reports: None GI Surgical History: Reports: Appendectomy Female Surgical History: Reports: Hysterectomy, Other (See Below) - History Comment History Comment: History of anxiety. Denies any prior cardiac or pulmonary diseases or problems. No hisotry of diabetes or HTN. Social & Family History - Family History Family Medical History: Noncontributory - Tobacco Use Smoking Status *Q: Current Every Day Smoker Years of Tobacco use: 20 Packs/Tins Daily: 1.5 - Caffeine Use Caffeine Use: Reports: None - Recreational Drug Use Recreational Drug Use: No ED ROS GENERAL - Review of Systems Review Of Systems: Comprehensive ROS is negative, except as noted in HPI. ED EXAM, GENERAL - Physical Exam Exam: See Below (See dictation) Course - Vital Signs Last Recorded V/S: Last Vital Signs Temp 97 F 06/04/20 14:54 Pulse 88 06/04/20 14:54 Resp 16 06/04/20 14:54 BP 126/68 06/04/20 14:54 Pulse Ox 95 06/04/20 14:54 - Orders/Labs/Meds Orders: Active Orders 24 hr Category Date Time Status Glucose [Blood Glucose Check, Bedside] [RC] ONETIME Care 06/04/20 15:29 Active Labs: Laboratory Tests 06/04/20 Range/Units 15:57 POC Glucose 91 (60-110) mg/dL Departure - Departure Time of Disposition: 16:36 Disposition: Home, Self-Care 01 Clinical Impression: Medical clearance for incarceration - Discharge Information Referrals: PCP,None [Primary Care Provider] - Additional Instructions: The following information is given to patients seen in the emergency department who are being discharged to home. This information is to outline your options for follow-up care. We provide all patients seen in our emergency department with a follow-up referral. The need for follow-up, as well as the timing and circumstances, are variable depending upon the specifics of your emergency department visit. If you don't have a primary care physician on staff, we will provide you with a referral. We always advise you to contact your personal physician following an emergency department visit to inform them of the circumstance of the visit and for follow-up with them and/or the need for any referrals to a consulting specialist. The emergency department will also refer you to a specialist when appropriate. This referral assures that you have the opportunity for follow-up care with a specialist. All of these measure are taken in an effort to provide you with optimal care, which includes your follow-up. Under all circumstances we always encourage you to contact your private physician who remains a resource for coordinating your care. When calling for follow-up care, please make the office aware that this follow-up is from your recent emergency room visit. If for any reason you are refused follow-up, please contact the [facility] Emergency Department at and asked to speak to the emergency department charge nurse. [facility] Primary Care [address] [place] [id number] [facility] [address] [place] [id number] Sepsis Event Note (ED) - Evaluation Sepsis Screening Result: No Definite Risk - Focused Exam Vital Signs: Vital Signs Temp Pulse Resp BP Pulse Ox 06/04/20 14:54 97 F 88 16 126/68 95 - My Orders Last 24 Hours: My Active Orders 06/04/20 15:29 Glucose [Blood Glucose Check, Bedside] [] ONETIME - Assessment/Plan Last 24 Hours: My Active Orders 06/04/20 15:29 Glucose [Blood Glucose Check, Bedside] [RC] ONETIME
== END 2020-06-04 16:50 | disposition home or self-care (01) ==
LOC: MW.ED 14:41
DX: Z02.89 Encounter for other administrative examinations (principal); F41.9 Anxiety disorder, unspecified; F17.210 Nicotine dependence, cigarettes, uncomplicated; Z88.1 Allergy status to other antibiotic agents; Z88.8 Allergy status to other drugs, medicaments and biological substances; Z79.82 Long term (current) use of aspirin; Z79.899 Other long term (current) drug therapy
CPT/HCPCS: 82962; 99282; 99283

== ENCOUNTER 2020-10-01 14:39 | Emergency (ER) | payer OTHER ==
[2020-10-01] MEDS ORDERED: Ondansetron 4 MG/2 ML SDV IVPUSH ONE (14:55)
[2020-10-01] MEDS ORDERED: Sodium Chloride 0.9% 1,000 ML IV ONE (14:55)
[2020-10-01] MEDS ORDERED: Ketorolac 30 MG/ML SDV IVPUSH ONE (14:57)
--- NOTE | 2020-10-01 15:24 | EDM.PDOC ---
ED HPI GENERAL MEDICAL PROBLEM - General Chief Complaint: Headache Stated Complaint: HEADACHE Time Seen by Provider: 10/01/20 14:44 Source of Information: Reports: Patient History Limitations: Reports: No Limitations - History of Present Illness INITIAL COMMENTS - FREE TEXT/NARRATIVE: HISTORY AND PHYSICAL: History of present illness: Patient is a 65-year-old female who presents to the emergency room with complaints of a frontal migraine headache. She states she has light sensitivity, noise sensitivity and nausea associated with this. She does have a history of migraine headaches although states it has been "a long time" since she has had any type of headache/migraine. She denies any injury, trauma or falls. She does not describe this as the worst headache of her life. She has no neurological symptoms or deficits associated with this. She has not used any [id number] products at this time. Patient denies any fever, chills, change in vision, syncope or near syncope. Denies any chest pain, back pain, shortness of breath or cough. Denies any abdominal pain, nausea, vomiting, diarrhea, constipation or dysuria. Has not noted any blood in urine or stool. Arpan page has been eating and drinking appropriately. Review of systems: As per history of present illness and below otherwise all systems reviewed and negative. Past medical history: As per history of present illness and as reviewed below otherwise noncontributory. Surgical history: As per history of present illness and as reviewed below otherwise noncontributory. Social history: See social history for further information Family history: As per history of present illness and as reviewed below otherwise noncontributory. Physical exam: General: Well developed and well nourished 65 year old female. Alert and orientated x 3. Nontoxic in appearance and in no acute distress. Vital signs are stable and have been reviewed by me. Nursing notes were reviewed. HEENT: Atraumatic, normocephalic, pupils equal and reactive bilaterally, negative for conjunctival pallor or scleral icterus, mucous membranes moist, TMs normal bilaterally, throat clear, neck supple, nontender, trachea midline. No nystagmus. No drooling or trismus noted. No meningeal signs. No hot potato voice noted. Lungs: Clear to auscultation bilaterally. No wheezes, rales, or rhonchi. Chest nontender. Normal work of breathing, no accessory muscles used. Heart: S1S2, regular rate and rhythm without overt murmur, gallops, or rubs. No JVD. No peripheral edema Abdomen: Soft, nondistended, nontender. Skin: Intact, warm, dry. No lesions or rashes noted. Hematologic: No petechiae or purpra. Mucosa appropriate color and normal nail bed color and refill. Extremities: Atraumatic, moves all extremities per self without difficulty or deficits, negative for cords or calf pain. Neurovascular unremarkable. Neuro: Awake, alert, oriented. Cranial nerves II through XII unremarkable. Cerebellum unremarkable. Motor and sensory unremarkable throughout. Exam nonfocal. Psychiatric: Mood and affect are appropriate. Normal thought process. Answering questions appropriately. Notes: *This patient was seen and evaluated during the 2019 SARS-CoV-2 novel coronavirus pandemic period. Community viral transmission is ongoing at time of this encounter and the emergency department is operating under pandemic response procedures. Symptoms have improved after the medication administration. Reassessment at the time of disposition demonstrates that the patient is in no acute distress. The patient is stable for discharge, counseling was provided and we discussed in great detail signs and symptoms that would prompt them to return to the Emergency Department. Medication, follow up and supportive care measures were reviewed and discussed. Voices understanding and is agreeable to plan of care. Denies any further questions or concerns at this time. Diagnostics: None Therapeutics: Zofran, Toradol, NS Prescription: None Impression: Migraine Headache Plan: 1. Please take the remainder of the day to rest. If your symptoms should worsen, new symptoms develop or any of the signs and symptoms we discussed should arise please return to the emergency room or call 911 (if needed). 2. You can alternate Tylenol and ibuprofen as needed for pain and fever management. 3. We encourage you to follow up with your primary care provider and/or recommended specialist in the next few days for re-evaluation and further care/management. Definitive disposition and diagnosis as appropriate pending reevaluation and review of above. Head Pain Score (Numeric/FACES): 10 - Related Data Allergies Allergy/AdvReac Type Severity Reaction Status Date / Time clarithromycin [From Biaxin] Allergy Hallucinati Verified 10/01/20 14:48 ons desvenlafaxine Allergy Anxiety Verified 10/01/20 14:48 doxycycline Allergy Nausea and Verified 10/01/20 14:48 Vomiting rofecoxib Allergy Cannot Verified 10/01/20 14:48 Remember topiramate Allergy Cannot Verified 10/01/20 14:48 Remember Home Meds: Home Meds DULoxetine [Cymbalta] 20 mg PO DAILY 10/01/20 [History] LORazepam [Ativan] 1 mg PO DAILY 10/01/20 [History] Methimazole [Tapazole] 10 mg PO DAILY 10/01/20 [History] hydrOXYzine HCL [hydrOXYzine] 25 mg PO DAILY 10/01/20 [History] Past Medical History HEENT History: Reports: Impaired Vision, Other (See Below) Other HEENT History: wears reading glasses, missing most of teeth Cardiovascular History: Reports: None Respiratory History: Reports: Other (See Below) Gastrointestinal History: Reports: Other (See Below) Genitourinary History: Reports: None S[employer]OOK History: Reports: None Musculoskeletal History: Reports: Other (See Below) Other Musculoskeletal History: hx of fx wrist, has tendonitis of left ankle Neurological History: Reports: None Psychiatric History: Reports: Anxiety Endocrine/Metabolic History: Reports: Other (See Below) Other Endocrine/Metabolic History: possibly has overactive thyroid Hematologic History: Reports: Anemia, Blood Transfusion(s) Immunologic History: Reports: None Oncologic (Cancer) History: Reports: None Dermatologic History: Reports: None - Infectious Disease History Infectious Disease History: Reports: Chicken Pox, Measles, Mumps - Past Surgical History Head Surgeries/Procedures: Reports: None HEENT Surgical History: Reports: None Other HEENT Surgeries/Procedures: hx of closed reduction of fx nose Cardiovascular Surgical History: Reports: None Respiratory Surgical History: Reports: None GI Surgical History: Reports: Appendectomy Female Surgical History: Reports: Hysterectomy, Other (See Below) Other Female Surgeries/Procedures: ovarian cyst Endocrine Surgical History: Reports: None Neurological Surgical History: Reports: None Musculoskeletal Surgical History: Reports: None Oncologic Surgical History: Reports: None Dermatological Surgical History: Reports: None - History Comment History Comment: History of anxiety. Denies any prior cardiac or pulmonary diseases or problems. No hisotry of diabetes or HTN. Social & Family History - Family History Family Medical History: No Pertinent Family History - Tobacco Use Tobacco Use Status *Q: Current Every Day Tobacco User Years of Tobacco use: 40 Packs/Tins Daily: 0.5 - Caffeine Use Caffeine Use: Reports: None - Recreational Drug Use Recreational Drug Use: No ED ROS GENERAL - Review of Systems Review Of Systems: Comprehensive ROS is negative, except as noted in HPI. - Physical Exam Exam: See Below (See dictation) Course - Vital Signs Last Recorded V/S: Last Vital Signs Temp 97.2 F 10/01/20 14:52 Pulse 100 10/01/20 14:52 Resp 16 10/01/20 14:52 BP 125/86 10/01/20 14:52 Pulse Ox 97 10/01/20 14:52 - Orders/Labs/Meds Orders: Active Orders 24 hr Category Date Time Status Sodium Chloride 0.9% [Normal Saline] 1,000 ml Med 10/01/20 14:55 Active IV STAT Medication Orders Sodium Chloride (Normal Saline) 1,000 mls @ 999 mls/hr IV STAT ONE Stop: 10/01/20 15:55 Last Admin: 10/01/20 15:05 Dose: 999 mls/hr Documented by: CORIE Meds: Medications Generic Name Dose Route Start Last Admin Trade Name Freq PRN Reason Stop Dose Admin Sodium Chloride 1,000 mls @ 999 mls/hr 10/01/20 14:55 10/01/20 15:05 Normal Saline IV 10/01/20 15:55 999 mls/hr STAT ONE Administration Discontinued Medications Generic Name Dose Route Start Last Admin Trade Name Freq PRN Reason Stop Dose Admin Ketorolac Tromethamine 30 mg 10/01/20 14:57 10/01/20 15:05 Toradol IVPUSH 10/01/20 14:58 30 mg ONETIME ONE Administration Ondansetron HCl 4 mg 10/01/20 14:55 10/01/20 15:05 Zofran IVPUSH 10/01/20 14:56 4 mg ONETIME ONE Administration Departure - Departure Time of Disposition: 15:31 Disposition: Home, Self-Care 01 Clinical Impression: Migraine - Discharge Information Instructions: Migraine Headache, [id number] Referrals: PCP,None [Primary Care Provider] - Forms: ED Department Discharge Additional Instructions: The following information is given to patients seen in the emergency department who are being discharged to home. This information is to outline your options for follow-up care. We provide all patients seen in our emergency department with a follow-up referral. The need for follow-up, as well as the timing and circumstances, are variable depending upon the specifics of your emergency department visit. If you don't have a primary care physician on staff, we will provide you with a referral. We always advise you to contact your personal physician following an emergency department visit to inform them of the circumstance of the visit and for follow-up with them and/or the need for any referrals to a consulting specialist. The emergency department will also refer you to a specialist when appropriate. This referral assures that you have the opportunity for follow-up care with a specialist. All of these measure are taken in an effort to provide you with optimal care, which includes your follow-up. Under all circumstances we always encourage you to contact your private physician who remains a resource for coordinating your care. When calling for follow-up care, please make the office aware that this follow-up is from your recent emergency room visit. If for any reason you are refused follow-up, please contact the [facility] Emergency Department at and asked to speak to the emergency department charge nurse. [facility] Primary Care [address] [place] [address] [place] [address] Thank you for choosing the [facility] emergency department in [place] for your medical needs today. It was a pleasure caring for you. Today you were seen in the emergency department for headache. 1. Please take the remainder of the day to rest. If your symptoms should worsen, new symptoms develop or any of the signs and symptoms we discussed should arise please return to the emergency room or call 911 (if needed). 2. You can alternate Tylenol and ibuprofen as needed for pain and fever management. 3. We encourage you to follow up with your primary care provider and/or recommended specialist in the next few days for re-evaluation and further care/management. Sepsis Event Note (ED) - Evaluation Sepsis Screening Result: No Definite Risk - Focused Exam Vital Signs: Vital Signs Temp Pulse Resp BP Pulse Ox 10/01/20 14:52 97.2 F 100 16 125/86 97 - My Orders Last 24 Hours: My Active Orders 10/01/20 14:55 Sodium Chloride 0.9% [Normal Saline] 1,000 ml IV STAT - Assessment/Plan Last 24 Hours: My Active Orders 10/01/20 14:55 Sodium Chloride 0.9% [Normal Saline] 1,000 ml IV STAT
== END 2020-10-01 15:57 | disposition home or self-care (01) ==
LOC: MW.ED 14:39
DX: G43.909 Migraine, unspecified, not intractable, without status migrainosus (principal); Z72.0 Tobacco use; Z88.1 Allergy status to other antibiotic agents; Z88.8 Allergy status to other drugs, medicaments and biological substances
CPT/HCPCS: 96374; 96375; 99283; J1885; J2405; J7030

== ENCOUNTER 2020-10-27 12:10 | Emergency (ER) | payer OTHER ==
--- NOTE | 2020-10-27 12:28 | EDM.PDOC ---
ED HPI GENERAL MEDICAL PROBLEM - General Stated Complaint: MIGRAINE Time Seen by Provider: 10/27/20 12:23 Source of Information: Reports: Patient History Limitations: Reports: No Limitations - History of Present Illness INITIAL COMMENTS - FREE TEXT/NARRATIVE: HISTORY AND PHYSICAL: History of present illness: Patient is a 65-year-old female who presents to the emergency room with complaints of a frontal migraine headache with light sensitivity, noise sensitivity and nausea. Patient was seen in the emergency room last month for a similar headache and received IV Toradol and Zofran. She states this medication combination worked well and is requesting that today. Patient has a longstanding history of migraine headaches and states today's headache is no different or atypical. Patient denies any fever, chills, change in vision, syncope or near syncope. Denies any chest pain, back pain, shortness of breath or cough. Denies any GI or symptoms other than nausea. Patient has been eating and drinking appropriately. Review of systems: As per history of present illness and below otherwise all systems reviewed and negative. Past medical history: As per history of present illness and as reviewed below otherwise noncontributory. Surgical history: As per history of present illness and as reviewed below otherwise noncontributory. Social history: See social history for further information Family history: As per history of present illness and as reviewed below otherwise noncontributory. Physical exam: General: Well developed and well nourished. Alert and orientated x 3. Nontoxic i n appearance and in no acute distress. Vital signs are stable and have been reviewed by me. Nursing notes were reviewed. HEENT: Atraumatic, normocephalic, pupils equal and reactive bilaterally, negat kandice for conjunctival pallor or scleral icterus, mucous membranes moist, TMs normal bilaterally, throat clear, neck supple, nontender, trachea midline. No drooling or trismus noted. No meningeal signs. No hot potato voice noted. Lungs: Clear to auscultation bilaterally. No wheezes, rales, or rhonchi. Chest nontender. Normal work of breathing, no accessory muscles used. Heart: S1S2, regular rate and rhythm without overt murmur, gallops, or rubs. No JVD. No peripheral edema Abdomen: Soft, nondistended, nontender. Skin: Intact, warm, dry. No lesions or rashes noted. Hematologic: No petechiae or purpra. Mucosa appropriate color and normal nail bed color and refill. Extremities: Atraumatic, moves all extremities per self without difficulty or deficits, negative for cords or calf pain. Neurovascular unremarkable. Neuro: Awake, alert, oriented. Cranial nerves II through XII unremarkable. Cerebellum unremarkable. Motor and sensory unremarkable throughout. Exam nonfocal. Psychiatric: Mood and affect are appropriate. Normal thought process. Answering questions appropriately. Notes: *This patient was seen and evaluated during the 2019 SARS-CoV-2 novel coronavirus pandemic period. Community viral transmission is ongoing at time of this encounter and the emergency department is operating under pandemic response procedures. Patient states that her headache pain has resolved but she does feel anxious. She typically takes Ativan every morning and has not taken her dose today. She is requesting that Ativan be given while here in the emergency room. Vital signs are stable. Pain/anxiety have resolved. Patient does have a ride home. I have talked with the patient about today's findings, in addition to providing specific details for plan of care. Reassessment at the time of disposition demonstrates that the patient is in no acute distress. The patient is stable for discharge, counseling was provided and we discussed in great detail signs and symptoms that would prompt them to return to the Emergency Department. Medication, follow up and supportive care measures were reviewed and discussed. Voices understanding and is agreeable to plan of care. Denies any further questions or concerns at this time. Diagnostics: None Therapeutics: IV fluid, Zofran, Toradol, Ativan Prescription: None Impression: Migraine headache Plan: 1. You were evaluated today on an emergent basis. You received IV Toradol and Zofran for your migraine headache. You can continue taking your prescribed medications as directed. Take the remainder of the day to rest in a dark and quiet room if able. 2. You can alternate Tylenol and ibuprofen as needed for pain and fever management. 3. We encourage you to follow up with your primary care provider and/or recommended specialist in the next few days for re-evaluation and further care/management. 4. If your symptoms should worsen, new symptoms develop or any of the signs and symptoms we discussed should arise please return to the emergency room or call 911 (if needed). Definitive disposition and diagnosis as appropriate pending reevaluation and review of above. head Pain Score (Numeric/FACES): 8 - Related Data Allergies Allergy/AdvReac Type Severity Reaction Status Date / Time clarithromycin [From Biaxin] Allergy Hallucinati Verified 10/27/20 12:28 ons desvenlafaxine Allergy Anxiety Verified 10/27/20 12:28 doxycycline Allergy Nausea and Verified 10/27/20 12:28 Vomiting rofecoxib Allergy Cannot Verified 10/27/20 12:28 Remember topiramate Allergy Cannot Verified 10/27/20 12:28 Remember Home Meds: Home Meds DULoxetine [Cymbalta] 20 mg PO DAILY 10/01/20 [History] LORazepam [Ativan] 1 mg PO DAILY 10/01/20 [History] Methimazole [Tapazole] 10 mg PO DAILY 10/01/20 [History] hydrOXYzine HCL [hydrOXYzine] 25 mg PO DAILY 10/01/20 [History] Past Medical History HEENT History: Reports: Impaired Vision, Other (See Below) Other HEENT History: wears reading glasses, missing most of teeth Cardiovascular History: Reports: None Respiratory History: Reports: Other (See Below) Gastrointestinal History: Reports: Other (See Below) Genitourinary History: Reports: None COMMERCIAL 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 CLEANER 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: Reports: None Musculoskeletal History: Reports: Other (See Below) Other Musculoskeletal History: hx of fx wrist, has tendonitis of left ankle Neurological History: Reports: None Psychiatric History: Reports: Anxiety Endocrine/Metabolic History: Reports: Other (See Below) Other Endocrine/Metabolic History: possibly has overactive thyroid Hematologic History: Reports: Anemia, Blood Transfusion(s) Immunologic History: Reports: None Oncologic (Cancer) History: Reports: None Dermatologic History: Reports: None - Infectious Disease History Infectious Disease History: Reports: Chicken Pox, Measles, Mumps - Past Surgical History Head Surgeries/Procedures: Reports: None HEENT Surgical History: Reports: None Other HEENT Surgeries/Procedures: hx of closed reduction of fx nose Cardiovascular Surgical History: Reports: None Respiratory Surgical History: Reports: None GI Surgical History: Reports: Appendectomy Female Surgical History: Reports: Hysterectomy, Other (See Below) Other Female Surgeries/Procedures: ovarian cyst Endocrine Surgical History: Reports: None Neurological Surgical History: Reports: None Musculoskeletal Surgical History: Reports: None Oncologic Surgical History: Reports: None Dermatological Surgical History: Reports: None - History Comment History Comment: History of anxiety. Denies any prior cardiac or pulmonary diseases or problems. No hisotry of diabetes or HTN. Social & Family History - Family History Family Medical History: No Pertinent Family History - Caffeine Use Caffeine Use: Reports: None ED ROS GENERAL - Review of Systems Review Of Systems: Comprehensive ROS is negative, except as noted in HPI. - Physical Exam Exam: See Below (See dictation) Course - Vital Signs Last Recorded V/S: Last Vital Signs Temp 97.2 F 10/27/20 12:25 Pulse 95 10/27/20 12:25 Resp 18 10/27/20 12:25 BP 125/77 10/27/20 12:25 Pulse Ox 95 10/27/20 12:25 - Orders/Labs/Meds Orders: Active Orders 24 hr Category Date Time Status LORazepam [Ativan] Med 10/27/20 13:05 Once 1 mg IVPUSH ONETIME ONE Sodium Chloride 0.9% [Normal Saline] 1,000 ml Med 10/27/20 12:30 Active IV NOW Medication Orders Sodium Chloride (Normal Saline) 1,000 mls @ 999 mls/hr IV NOW STA Stop: 10/27/20 13:30 Last Admin: 10/27/20 12:35 Dose: 999 mls/hr Documented by: SADE Meds: Medications Generic Name Dose Route Start Last Admin Trade Name Freq PRN Reason Stop Dose Admin Sodium Chloride 1,000 mls @ 999 mls/hr 10/27/20 12:30 10/27/20 12:35 Normal Saline IV 10/27/20 13:30 999 mls/hr NOW STA Administration Discontinued Medications Generic Name Dose Route Start Last Admin Trade Name Freq PRN Reason Stop Dose Admin Ketorolac Tromethamine 30 mg 10/27/20 12:30 10/27/20 12:37 Toradol IVPUSH 10/27/20 12:31 30 mg ONETIME ONE Administration Ondansetron HCl 4 mg 10/27/20 12:30 10/27/20 12:35 Zofran IVPUSH 10/27/20 12:31 4 mg ONETIME ONE Administration Departure - Departure Time of Disposition: 13:07 Disposition: Home, Self-Care 01 Clinical Impression: Migraine - Discharge Information Instructions: Migraine Headache, [id number] Referrals: Giovanna Rollins NP [Primary Care Provider] - Forms: ED Department Discharge Additional Instructions: The following information is given to patients seen in the emergency department who are being discharged to home. This information is to outline your options for follow-up care. We provide all patients seen in our emergency department with a follow-up referral. The need for follow-up, as well as the timing and circumstances, are variable depending upon the specifics of your emergency department visit. If you don't have a primary care physician on staff, we will provide you with a referral. We always advise you to contact your personal physician following an emergency department visit to inform them of the circumstance of the visit and for follow-up with them and/or the need for any referrals to a consulting specialist. The emergency department will also refer you to a specialist when appropriate. This referral assures that you have the opportunity for follow-up care with a specialist. All of these measure are taken in an effort to provide you with optimal care, which includes your follow-up. Under all circumstances we always encourage you to contact your private physician who remains a resource for coordinating your care. When calling for follow-up care, please make the office aware that this follow-up is from your recent emergency room visit. If for any reason you are refused follow-up, please contact the [facility] Emergency Department at and asked to speak to the emergency department charge nurse. [facility] [address] [place] [id number] [place] [address] Thank you for choosing the [facility] emergency department in [place] for your medical needs today. It was a pleasure caring for you. Today you were seen in the emergency department for headache. 1. You were evaluated today on an emergent basis. You received IV Toradol and Zofran for your migraine headache. You can continue taking your prescribed medications as directed. Take the remainder of the day to rest in a dark and quiet room if able. 2. You can alternate Tylenol and ibuprofen as needed for pain and fever management. 3. We encourage you to follow up with your primary care provider and/or recommended specialist in the next few days for re-evaluation and further care/management. 4. If your symptoms should worsen, new symptoms develop or any of the signs and symptoms we discussed should arise please return to the emergency room or call 911 (if needed). Sepsis Event Note (ED) - Focused Exam Vital Signs: Vital Signs Temp Pulse Resp BP Pulse Ox 10/27/20 12:25 97.2 F 95 18 125/77 95 - My Orders Last 24 Hours: My Active Orders 10/27/20 12:30 Sodium Chloride 0.9% [Normal Saline] 1,000 ml IV NOW 10/27/20 13:05 LORazepam [Ativan] 1 mg IVPUSH ONETIME ONE - Assessment/Plan Last 24 Hours: My Active Orders 10/27/20 12:30 Sodium Chloride 0.9% [Normal Saline] 1,000 ml IV NOW 10/27/20 13:05 LORazepam [Ativan] 1 mg IVPUSH ONETIME ONE
[2020-10-27] MEDS ORDERED: Sodium Chloride 0.9% 1,000 ML IV STA (12:30)
[2020-10-27] MEDS ORDERED: Ondansetron 4 MG/2 ML SDV IVPUSH ONE (12:30)
[2020-10-27] MEDS ORDERED: Ketorolac 30 MG/ML SDV IVPUSH ONE (12:30)
[2020-10-27] MEDS ORDERED: LORazepam 2 MG/ML SDV IVPUSH ONE (13:05)
== END 2020-10-27 13:34 | disposition home or self-care (01) ==
LOC: MW.ED 12:10
DX: G43.909 Migraine, unspecified, not intractable, without status migrainosus (principal); Z88.8 Allergy status to other drugs, medicaments and biological substances; Z88.1 Allergy status to other antibiotic agents; Z79.899 Other long term (current) drug therapy
CPT/HCPCS: 96374; 96375; 99283; J1885; J2060; J2405; J7030

== ENCOUNTER 2020-12-01 09:19 | Day surgery (SDC) | payer OTHER ==
[2020-12-01] MEDS ORDERED: Propofol 200 MG/20 ML SDV ONE (09:47)
[2020-12-01] MEDS ORDERED: Midazolam 1 MG/ML 2 ML SDV ONE (09:47)
[2020-12-01] MEDS ORDERED: Lidocaine 2% 5 ML SDV ONE (09:47)
--- NOTE | 2020-12-01 10:00 | PCM.PREANE ---
Preanesthetic Assessment - Anesthesia/Transfusion/Family Hx Anesthesia History: Prior Anesthesia Without Reaction Family History of Anesthesia Reaction: No Transfusion History: Prior Transfusion Without Reaction Intubation History: Unknown - Review of Systems General: No Symptoms Pulmonary: No Symptoms Cardiovascular: No Symptoms Gastrointestinal: No Symptoms Neurological: No Symptoms Other: Reports: None - Physical Assessment NPO Status Date: 12/01/20 NPO Status Time: 00:05 Vital Signs: Last Vital Signs Temp 97.2 F 12/01/20 09:30 Pulse 94 12/01/20 09:30 Resp 15 12/01/20 09:30 BP 122/86 12/01/20 09:30 Pulse Ox 95 12/01/20 09:30 Height: 5 ft 6 in Weight: 172 lb ASA Class: 2 Mental Status: Alert & Oriented x3 Airway Class: Mallampati = 2 Dentition: Reports: Normal Dentition, Dentures ROM/Head Extension: Limited/Partial Lungs: Clear to Auscultation, Normal Respiratory Effort Cardiovascular: Regular Rate, Regular Rhythm - Allergies Allergies/Adverse Reactions: Allergies Allergy/AdvReac Type Severity Reaction Status Date / Time clarithromycin [From Biaxin] Allergy Hallucinati Verified 11/28/20 08:45 ons desvenlafaxine Allergy Anxiety Verified 11/28/20 08:45 doxycycline Allergy Nausea and Verified 11/28/20 08:45 Vomiting rofecoxib Allergy Cannot Verified 11/28/20 08:45 Remember topiramate Allergy Cannot Verified 11/28/20 08:45 Remember - Anesthesia Plan Pre-Op Medication Ordered: None - Acknowledgements Anesthesia Type Planned: General Anesthesia Pt an Appropriate Candidate for the Planned Anesthesia: Yes Alternatives and Risks of Anesthesia Discussed w Pt/Guardian: Yes Pt/Guardian Understands and Agrees with Anesthesia Plan: Yes Additional Comments: npo after mn anxiety depression chronic pain takes no narcotics nova tob 1 ppd etoh occ upper denture bmi 28 par no questions PreAnesthesia Questionnaire HEENT History: Reports: Impaired Vision, Other (See Below) Other HEENT History: wears reading glasses, top denture Cardiovascular History: Reports: High Cholesterol Respiratory History: Reports: None Gastrointestinal History: Reports: GI Bleed, PUD Other Gastrointestinal History: occasional heartburn Genitourinary History: Reports: None 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 NEGOTIATOR History: Reports: None Musculoskeletal History: Reports: Osteoporosis, Other (See Below) Other Musculoskeletal History: hx of fx wrist & left femur Neurological History: Reports: None Psychiatric History: Reports: Anxiety, Depression Endocrine/Metabolic History: Reports: Hyperthyroidism, Osteoporosis Other Endocrine/Metabolic History: overactive thyroid Hematologic History: Reports: Anemia, Blood Transfusion(s) Immunologic History: Reports: None Oncologic (Cancer) History: Reports: None Dermatologic History: Reports: None - Infectious Disease History Infectious Disease History: Reports: Chicken Pox, Measles, Mumps - Past Surgical History Head Surgeries/Procedures: Reports: None HEENT Surgical History: Reports: Other (See Below) Other HEENT Surgeries/Procedures: hx of closed reduction of fx nose Cardiovascular Surgical History: Reports: None Respiratory Surgical History: Reports: None GI Surgical History: Reports: Appendectomy, Colonoscopy, EGD Female Surgical History: Reports: Cystectomy, Hysterectomy, Salpingo- Oophorectomy, Other (See Below) Other Female Surgeries/Procedures: ovarian cystectomy, Endocrine Surgical History: Reports: None Neurological Surgical History: Reports: None Musculoskeletal Surgical History: Reports: ORIF Other Musculoskeletal Surgeries/Procedures:: ORIF left femur fx Oncologic Surgical History: Reports: None Dermatological Surgical History: Reports: None - History Comment History Comment: History of anxiety. Denies any prior cardiac or pulmonary diseases or problems. No hisotry of diabetes or HTN. - SUBSTANCE USE Tobacco Use Status *Q: Current Every Day Tobacco User Tobacco Use Within Last Twelve Months: Cigarettes - HOME MEDS Home Medications: Home Meds LORazepam [Ativan] 1 mg PO BID 10/01/20 [History] Methimazole [Tapazole] 5 mg PO DAILY 10/01/20 [History] Alendronate Sodium 70 mg PO WEEKLY 11/28/20 [History] Celecoxib 200 mg PO DAILY 11/28/20 [History] DULoxetine HCl [Duloxetine HCl] 2 tab PO DAILY 11/28/20 [History] OLANZapine [Olanzapine] 20 mg PO BEDTIME 11/28/20 [History] Prochlorperazine Maleate [Compazine] 10 mg PO ASDIRECTED PRN 11/28/20 [History] atorvaSTATin Calcium [Atorvastatin Calcium] 10 mg PO BEDTIME 11/28/20 [History] hydrOXYzine HCL [Hydroxyzine HCl] 25 mg PO Q6H PRN 11/28/20 [History] - CURRENT (IN HOUSE) MEDS Current Meds: Current Medications Lactated Ringer's (Ringers, Lactated) 1,000 mls @ 125 mls/hr IV ASDIRECTED KEYSHA Last Admin: 12/01/20 09:45 Dose: 125 mls/hr Documented by: Discontinued Medications Lidocaine (Lidocaine 2% 5 Ml Sdv) Confirm Administered Dose 5 ml .ROUTE .STK-MED ONE Stop: 12/01/20 09:48 Midazolam HCl (Midazolam 1 Mg/Ml 2 Ml Sdv) Confirm Administered Dose 2 mg .ROUTE .STK-MED ONE Stop: 12/01/20 09:48 Propofol (Propofol 200 Mg/20 Ml Sdv) Confirm Administered Dose 200 mg .ROUTE .STK-MED ONE Stop: 12/01/20 09:48
--- NOTE | 2020-12-01 10:36 | PCM.OPNOTE ---
- General Post-Op/Procedure Note Date of Surgery/Procedure: 12/01/20 Operative Procedure(s): Esophagogastroduodenoscopy with gastric and esophageal biopsy Pre Op Diagnosis: Iron deficiency anemia with low ferritin level. History of gastric ulcer. Post-Op Diagnosis: Moderate acute and chronic gastritis. Anesthesia Technique: MAC (ASA II) Primary Surgeon: Ajay Cowan Prefitter: Jazmine Hart Condition: Good Free Text/Narrative:: DICTATION [id number] CPT CODE 36392
[2020-12-01] MEDS ORDERED: Lactated Ringers 1,000 ML IV SCH (10:45)
--- NOTE | 2020-12-01 10:50 | PCM48HPAN ---
Post Anesthesia Note - EVALUATION WITHIN 48HRS OF ANESTHETIC Vital Signs in Normal Range: Yes Patient Participated in Evaluation: Yes Respiratory Function Stable: Yes Airway Patent: Yes Cardiovascular Function Stable: Yes Hydration Status Stable: Yes Pain Control Satisfactory: Yes Nausea and Vomiting Control Satisfactory: Yes Mental Status Recovered: Yes Vital Signs: Last Vital Signs Temp 97.2 F 12/01/20 09:30 Pulse 91 12/01/20 10:45 Resp 20 12/01/20 10:45 BP 115/64 12/01/20 10:45 Pulse Ox 93 L 12/01/20 10:45
--- NOTE | 2020-12-01 10:52 | PCM.POSTAN ---
POST ANESTHESIA ASSESSMENT - MENTAL STATUS Mental Status: Alert (no problems), Oriented (no problems) - VITAL SIGNS Vital Signs: Last Vital Signs Temp 97.2 F 12/01/20 09:30 Pulse 91 12/01/20 10:45 Resp 20 12/01/20 10:45 BP 115/64 12/01/20 10:45 Pulse Ox 93 L 12/01/20 10:45 - RESPIRATORY Respiratory Status: Respiratory Rate WNL, Airway Patent, O2 Saturation Stable - CARDIOVASCULAR CV Status: Pulse Rate WNL, Blood Pressure Stable - GASTROINTESTINAL GI Status: No Symptoms - POST OP HYDRATION Hydration Status: Adequate & Stable
--- NOTE | 2020-12-01 11:44 | PCM48HPAN ---
Post Anesthesia Note - EVALUATION WITHIN 48HRS OF ANESTHETIC Vital Signs in Normal Range: Yes Patient Participated in Evaluation: Yes Respiratory Function Stable: Yes Airway Patent: Yes Cardiovascular Function Stable: Yes Hydration Status Stable: Yes Pain Control Satisfactory: Yes Nausea and Vomiting Control Satisfactory: Yes Mental Status Recovered: Yes Vital Signs: Last Vital Signs Temp 97.7 F 12/01/20 10:50 Pulse 88 12/01/20 10:50 Resp 14 12/01/20 10:50 BP 123/60 12/01/20 10:50 Pulse Ox 93 L 12/01/20 10:50
--- NOTE | 2020-12-01 14:17 | OR ---
SURGEON: Ajay Cowan M.D. DATE OF PROCEDURE: 12/01/2020 OPERATION PERFORMED: Esophagogastroduodenoscopy with gastric biopsy. PRIMARY SURGEON: Ajay Cowan M.D. 4TH GRADE TEACHER: [employer] teacher assistant: LORRAINE Desouza student. ANESTHESIA: MAC. ASA CLASSIFICATION: II. PREOPERATIVE DIAGNOSES: 1. Iron-deficiency anemia with low ferritin level. 2. History of gastric ulcer. POSTOPERATIVE DIAGNOSES: Moderate acute on chronic gastritis without ulceration. DESCRIPTION OF PROCEDURE: The patient was taken to the endoscopy room and positioned on the endoscopy table in the left lateral decubitus position. Time-out was called for appropriate identification of the patient and procedure. Monitored anesthesia care was provided. The bite block was placed between the patient's teeth. The gastroscope was inserted through the bite block and advanced without difficulty through the esophagus and stomach, into the duodenum where examination was now carried out in a retrograde fashion. The duodenum showed no acute inflammatory changes or ulcerations. No blood was seen in the duodenum. The scope was withdrawn to the stomach, which did demonstrate a fairly significant acute on chronic gastritis. No ulcerations were noted. Antral biopsies were obtained to look for the presence of Helicobacter pylori. The gastroscope was then retroflexed to visualize the proximal stomach. No ulcerations were noted and no tumors were seen in the cardia. The gastroscope was then straightened and slowly withdrawn visualizing the greater and lesser curvatures. No polyps were encountered. No acute ulcerations were noted in the greater or lesser curvatures. The GE junction was well defined. She did have some mild esophagitis type changes and separate biopsies of the esophagus were obtained. I did not see any esophageal erosions. The esophagus demonstrated good contractility. No mid or proximal lesions were identified. The vocal cords were briefly visualized as the scope was withdrawn. No vocal cord lesions were identified. The gastroscope was then removed with the patient having tolerated this procedure well. She was then taken to recovery room in stable condition. JOYCE / SABI /[id number]
== END 2020-12-01 11:10 | disposition home or self-care (01) ==
LOC: MW.SDS 09:19
PROVIDERS: ATTEND Surgery
DX: K29.50 Unspecified chronic gastritis without bleeding (principal); D50.9 Iron deficiency anemia, unspecified; K29.00 Acute gastritis without bleeding; K20.90 Esophagitis, unspecified without bleeding; F17.210 Nicotine dependence, cigarettes, uncomplicated; E78.00 Pure hypercholesterolemia, unspecified; M81.0 Age-related osteoporosis without current pathological fracture; E05.90 Thyrotoxicosis, unspecified without thyrotoxic crisis or storm; Z87.19 Personal history of other diseases of the digestive system; Z88.8 Allergy status to other drugs, medicaments and biological substances; Z88.1 Allergy status to other antibiotic agents; Z98.890 Other specified postprocedural states
CPT/HCPCS: 43239; 88305; 88312; J2250; J2704; J7120; 00731

== ENCOUNTER 2021-03-15 12:53 | Emergency (ER) | payer OTHER ==
[2021-03-15] MEDS ORDERED: Benzocaine 20% Topical Spray UD MUCMEM ONE (13:39)
[2021-03-15] MEDS ORDERED: Lidocaine 2% Viscous Solution 15 ML Cup PO ONE (13:39)
--- NOTE | 2021-03-15 13:40 | EDM.PDOC ---
ED HPI GENERAL MEDICAL PROBLEM - General Chief Complaint: ENT Problem Stated Complaint: toothache/migraine Time Seen by Provider: 03/15/21 13:17 Source of Information: Reports: Patient History Limitations: Reports: No Limitations - History of Present Illness INITIAL COMMENTS - FREE TEXT/NARRATIVE: HISTORY AND PHYSICAL: History of present illness: Patient is a 61-year-old female who presents emergency room today with concern of tooth pain since this morning. Patient states that she has multiple chipped teeth in general and states that that her dental hygiene is not the best. Patient states that her tooth pain this morning is now causing her to have a headache as it is throbbing from her tooth and into her jaw. Patient states that she has not had any swelling except for around the gumline of the tooth. Patient denies any head injury or trauma or any other associated symptoms. Patient denies fever, chills, chest pain, shortness of breath, or cough. Denies neck stiff ness, change in vision, syncope, or near syncope. Denies nausea, vomiting, abdominal pain, diarrhea, constipation, or dysuria. Has not noted any blood in urine or stool. Patient has been eating and drinking appropriately. Review of systems: As per history of present illness and below otherwise all systems reviewed and negative. Past medical history: As per history of present illness and as reviewed below otherwise noncontributory. Surgical history: As per history of present illness and as reviewed below otherwise noncontributory. Social history: See social history for further information Family history: As per history of present illness and as reviewed below otherwise noncontributory. Physical exam: General: Patient is alert, oriented, and in no acute distress. Patient sitting comfortably on exam table. Vitals stable and reviewed by me. HEENT: Patient is missing multiple molar teeth with generalized poor dentition. Tooth #18 is eroded to the gumline with surrounding edema of the gumline of the tooth without obvious drainable abscess at this time. Otherwise, atraumatic, normocephalic, pupils equal and reactive bilaterally, negative for conjunctival pallor or scleral icterus, mucous membranes moist, TMs normal bilaterally, throat clear, neck supple, nontender, trachea midline. No drooling or trismus noted. No meningeal signs. No hot potato voice noted. Lungs: Clear to auscultation, breath sounds equal bilaterally, chest nontender. Heart: S1S2, regular rate and rhythm without overt murmur Abdomen: Soft, nondistended, nontender. Negative for masses or hepatosp lenomegaly. Negative for costovertebral tenderness. Pelvis: Stable nontender. Genitourinary: Deferred. Rectal: Deferred. Skin: Intact, warm, dry. No lesions or rashes noted. Extremities: Atraumatic, negative for cords or calf pain. Neurovascular unremarkable. Neuro: Awake, alert, oriented. Cranial nerves II through XII unremarkable. Cerebellum unremarkable. Motor and sensory unremarkable throughout. Exam nonfocal. Notes: Signs and symptoms that were prompt return to the ED thoroughly discussed with patient. Discussed importance for follow-up with a dentist for definitive treatment. Voices understanding and is agreeable to plan of care. Denies any further questions or concerns at this time. Diagnostics: None Therapeutics: Dental balls Prescription: Augmentin, diclofenac Impression: Dental infection Plan: 1. Please take medication as prescribed. 2. Tylenol as directed and as needed for pain management. Take medication as prescribed. Do not take any additional NSAIDs with diclofenac such as ibuprofen, naproxen, Aleve, or aspirin. 3. "Tooth Balls" have been given to you; apply along the gumline every 2-3 hours as needed. Do not swallow these; external use only. 4. Follow-up with a dentist for definitive care. Return to the ED as needed and as discussed. Definitive disposition and diagnosis as appropriate pending reevaluation and review of above. - Related Data Allergies Allergy/AdvReac Type Severity Reaction Status Date / Time clarithromycin [From Biaxin] Allergy Hallucinati Verified 03/15/21 13:18 ons desvenlafaxine Allergy Anxiety Verified 03/15/21 13:18 doxycycline Allergy Nausea and Verified 03/15/21 13:18 Vomiting rofecoxib Allergy Cannot Verified 03/15/21 13:18 Remember topiramate Allergy Cannot Verified 03/15/21 13:18 Remember Home Meds: Home Meds LORazepam [Ativan] 1 mg PO BID 10/01/20 [History] Methimazole [Tapazole] 5 mg PO DAILY 10/01/20 [History] Alendronate Sodium 70 mg PO WEEKLY 11/28/20 [History] Celecoxib 200 mg PO DAILY 11/28/20 [History] DULoxetine HCl [Duloxetine HCl] 2 tab PO DAILY 11/28/20 [History] OLANZapine [Olanzapine] 20 mg PO BEDTIME 11/28/20 [History] Prochlorperazine Maleate [Compazine] 10 mg PO ASDIRECTED PRN 11/28/20 [History] atorvaSTATin Calcium [Atorvastatin Calcium] 10 mg PO BEDTIME 11/28/20 [History] hydrOXYzine HCL [Hydroxyzine HCl] 25 mg PO Q6H PRN 11/28/20 [History] Esomeprazole Magnesium [Nexium] 40 mg PO BID 30 Days #60 capsule.dr 12/01/20 [Rx] Sucralfate [Carafate] 1 gm PO Q6HR 30 Days #120 tab 12/01/20 [Rx] Amoxicillin/Potassium Clav [Augmentin 875-125 Tablet] 1 each PO BID 7 Days #14 tablet 03/15/21 [Rx] Diclofenac Sodium [Voltaren] 75 mg PO BIDMEALS PRN #15 tab.cr 03/15/21 [Rx] Past Medical History HEENT History: Reports: Impaired Vision, Other (See Below) Other HEENT History: wears reading glasses, top denture Cardiovascular History: Reports: High Cholesterol Respiratory History: Reports: None Gastrointestinal History: Reports: GI Bleed, PUD Other Gastrointestinal History: occasional heartburn Genitourinary History: Reports: None 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 Musculoskeletal History: Reports: Osteoporosis, Other (See Below) Other Musculoskeletal History: hx of fx wrist & left femur Neurological History: Reports: None Psychiatric History: Reports: Anxiety, Depression Endocrine/Metabolic History: Reports: Hyperthyroidism, Osteoporosis Other Endocrine/Metabolic History: overactive thyroid Hematologic History: Reports: Anemia, Blood Transfusion(s) Immunologic History: Reports: None Oncologic (Cancer) History: Reports: None Dermatologic History: Reports: None - Infectious Disease History Infectious Disease History: Reports: Chicken Pox, Measles - Past Surgical History Head Surgeries/Procedures: Reports: None HEENT Surgical History: Reports: Other (See Below) Other HEENT Surgeries/Procedures: hx of closed reduction of fx nose Cardiovascular Surgical History: Reports: None Respiratory Surgical History: Reports: None GI Surgical History: Reports: Appendectomy, Colonoscopy, EGD Female Surgical History: Reports: Cystectomy, Hysterectomy, Salpingo- Oophorectomy, Other (See Below) Other Female Surgeries/Procedures: ovarian cystectomy, Endocrine Surgical History: Reports: None Neurological Surgical History: Reports: None Musculoskeletal Surgical History: Reports: ORIF Other Musculoskeletal Surgeries/Procedures:: ORIF left femur fx Oncologic Surgical History: Reports: None Dermatological Surgical History: Reports: None - History Comment History Comment: History of anxiety. Denies any prior cardiac or pulmonary diseases or problems. No hisotry of diabetes or HTN. Social & Family History - Family History Family Medical History: No Pertinent Family History - Tobacco Use Tobacco Use Status *Q: Current Every Day Tobacco User Years of Tobacco use: 40 Packs/Tins Daily: 1 - Caffeine Use Caffeine Use: Reports: None - Recreational Drug Use Recreational Drug Use: No ED ROS GENERAL - Review of Systems Review Of Systems: Comprehensive ROS is negative, except as noted in HPI. ED EXAM, GENERAL - Physical Exam Exam: See Below (see dictation) Course - Vital Signs Last Recorded V/S: Last Vital Signs Temp 96.9 F 03/15/21 13:18 Pulse 99 03/15/21 13:18 Resp 17 03/15/21 13:18 BP 111/92 H 03/15/21 13:18 Pulse Ox 96 03/15/21 13:18 - Orders/Labs/Meds Meds: Medications Discontinued Medications Generic Name Dose Route Start Last Admin Trade Name Freq PRN Reason Stop Dose Admin Benzocaine 2 each 03/15/21 13:39 03/15/21 14:02 Benzocaine 20% Topical [place] [facility] MUCMEM 03/15/21 13:40 2 each ONETIME ONE Administration Lidocaine HCl 15 ml 03/15/21 13:39 03/15/21 14:02 Lidocaine 2% Viscous Solution 15 Ml Cup PO 03/15/21 13:40 15 ml ONETIME ONE Administration Departure - Departure Time of Disposition: 13:39 Disposition: Home, Self-Care 01 Clinical Impression: Dental infection - Discharge Information Prescriptions: Amoxicillin/Potassium Clav [Augmentin 875-125 Tablet] 1 each PO BID 7 Days #14 tablet Diclofenac Sodium [Voltaren] 75 mg PO BIDMEALS PRN #15 tab.cr PRN Reason: Pain Instructions: Dental Abscess, [id number] Referrals: Giovanna Rollins GRAVEL INSPECTOR [Primary Care Provider] - Forms: ED Department Discharge Additional Instructions: The following information is given to patients seen in the emergency department who are being discharged to home. This information is to outline your options for follow-up care. We provide all patients seen in our emergency department with a follow-up referral. The need for follow-up, as well as the timing and circumstances, are variable depending upon the specifics of your emergency department visit. If you don't have a primary care physician on staff, we will provide you with a referral. We always advise you to contact your personal physician following an emergency department visit to inform them of the circumstance of the visit and for follow-up with them and/or the need for any referrals to a consulting specialist. The emergency department will also refer you to a specialist when appropriate. This referral assures that you have the opportunity for follow-up care with a specialist. All of these measure are taken in an effort to provide you with optimal care, which includes your follow-up. Under all circumstances we always encourage you to contact your private physician who remains a resource for coordinating your care. When calling for follow-up care, please make the office aware that this follow-up is from your recent emergency room visit. If for any reason you are refused follow-up, please contact the [facility] Emergency Department at and asked to speak to the emergency department charge nurse. [facility] [address] [place] [address] [place] [address] 1. Please take medication as prescribed. 2. Tylenol as directed and as needed for pain management. Take medication as prescribed. Do not take any additional NSAIDs with diclofenac such as ibuprofen, naproxen, Aleve, or aspirin. 3. "Tooth Balls" have been given to you; apply along the gumline every 2-3 hours as needed. Do not swallow these; external use only. 4. Follow-up with a dentist for definitive care. Return to the ED as needed and as discussed. Sepsis Event Note (ED) - Evaluation Sepsis Screening Result: No Definite Risk - Focused Exam Vital Signs: Vital Signs Temp Pulse Resp BP Pulse Ox 03/15/21 13:18 96.9 F 99 17 111/92 H 96
== END 2021-03-15 14:14 | disposition home or self-care (01) ==
LOC: MW.ED 12:53
DX: K04.7 Periapical abscess without sinus (principal); E78.00 Pure hypercholesterolemia, unspecified; E05.90 Thyrotoxicosis, unspecified without thyrotoxic crisis or storm; M81.0 Age-related osteoporosis without current pathological fracture; D64.9 Anemia, unspecified; Z72.0 Tobacco use; Z88.1 Allergy status to other antibiotic agents; Z88.8 Allergy status to other drugs, medicaments and biological substances; Z79.899 Other long term (current) drug therapy
CPT/HCPCS: 99282; A9270

== ENCOUNTER 2021-04-09 15:19 | Emergency (ER) | payer MEDICARE, OTHER ==
[2021-04-09] MEDS ORDERED: Ketorolac 15 MG/ML SDV IM ONE (16:10)
--- NOTE | 2021-04-09 16:19 | EDM.PDOC ---
ED HPI GENERAL MEDICAL PROBLEM - General Chief Complaint: Lower Extremity Injury/Pain Stated Complaint: ACHILES HEEL/PT SAIS SHE CANT WALK ON IT Time Seen by Provider: 04/09/21 15:56 - History of Present Illness INITIAL COMMENTS - FREE TEXT/NARRATIVE: CHIEF COMPLAINT(S): "My Achilles heel" HISTORY OF PRESENT ILLNESS: This is a 66-year-old woman without any reported past medical history however per medication list patient seems to have hyperlipidemia, mood disorder, anxiety, depression presents to the emergency department with "my Achilles' heel." The patient states that she is can hardly walk on her left Achilles heel. She denies any injury to this area and denies that is happened before. She describes the pain as "feels like it just hurts." She rates it as a 10 out of 10. She denies any radiation of the pain. She states that stepping on it causes increased pain. She states that not stepping on it believes it. She has tried Tylenol and Celebrex without any relief. she states there is some mild swelling. REVIEW OF SYSTEMS: Constitutional: Denies fever, chills. Eyes: Denies eye pain Ears, Nose, Mouth, & Throat: Denies earache Cardiovascular: Denies chest pain Respiratory: Denies shortness of breath Gastrointestinal: Denies Nausea, vomiting, diarrhea, hematochezia. Genitourinary: Denies hematuria Skin:Denies a rash MSK: Positive for left Achilles pain Neurological: Denies blurred vision, numbness, tingling, weakness Psychiatric: Denies depression PAST MEDICAL HISTORY: As per history of present illness and as reviewed below otherwise noncontributory. SURGICAL HISTORY: As per history of present illness and as reviewed below otherwise noncontributory. SOCIAL HISTORY: As per history of present illness and as reviewed below otherwise noncontributory. FAMILY HISTORY: As per history of present illness and as reviewed below otherwise noncontributory. EXAMINATION OF ORGAN SYSTEMS/BODY AREAS: Constitutional: Blood pressure was 105/73, heart rate 109, respiratory rate 18 with an oxygen saturation 95% on room air. Temperature 36.1 General: Overall well-appearing woman who is in no acute distress Psychiatric: Odd affect but she is cooperative. Eyes: No scleral icterus or conjunctival erythema Cardiovascular: Regular, rate, and rhythm. No gallops, murmurs, or rubs. Bilateral upper extremity pulses symmetric and intact. No peripheral edema. No JVD. Respiratory: Lungs clear to auscultation bilaterally. No wheezes, rales, or rhonchi. Musculoskeletal: The patient can fully flex and extend at the right ankle and foot thus displaying an intact Achilles tendon. There is some swelling along the Achilles tendon area without any erythema. There is mild tenderness to palpation. No obvious deformity. Skin: No lesions or abrasions. Neurological: Alert, GCS 15 distal sensation is intact MEDICAL DECISION MAKING AND COURSE IN THE ED WITH INTERPRETATION/REVIEW OF DIAGNOSTIC STUDIES: This is a 66-year-old woman with a past medical history of depression, anxiety, hyperlipidemia who comes to the emergency department with what appears to be Achilles tendinitis who has intact range of motion. At this time I did discuss that I could provide her with a walking boot so that you can rest. She states that she does not want a walking boot and request OxyContin. I did discuss at this time that this diagnosis does not require opiate medication and I recommended Tylenol and naproxen, elevation, ice and follow-up with the orthopedic clinic. She expressed understanding was amenable discharge at this time. She is given strict return precautions DISPOSITION: The patient was discharged home in stable condition. The patient will follow up with orthopedics as needed CONDITION: Fair PROCEDURES: None FINAL IMPRESSION(S)/DIAGNOSES: 1. Acute left Achilles tendinitis Pipe Lozano M.D. left foot Pain Score (Numeric/FACES): 5 - Related Data Allergies Allergy/AdvReac Type Severity Reaction Status Date / Time clarithromycin [From Biaxin] Allergy Hallucinati Verified 04/09/21 15:49 ons desvenlafaxine Allergy Anxiety Verified 04/09/21 15:49 doxycycline Allergy Nausea and Verified 04/09/21 15:49 Vomiting rofecoxib Allergy Cannot Verified 04/09/21 15:49 Remember topiramate Allergy Cannot Verified 04/09/21 15:49 Remember Home Meds: Home Meds LORazepam [Ativan] 1 mg PO BID 10/01/20 [History] Methimazole [Tapazole] 5 mg PO DAILY 10/01/20 [History] Alendronate Sodium 70 mg PO WEEKLY 11/28/20 [History] Celecoxib 200 mg PO DAILY 11/28/20 [History] DULoxetine HCl [Duloxetine HCl] 2 tab PO DAILY 11/28/20 [History] OLANZapine [Olanzapine] 20 mg PO BEDTIME 11/28/20 [History] Prochlorperazine Maleate [Compazine] 10 mg PO ASDIRECTED PRN 11/28/20 [History] atorvaSTATin Calcium [Atorvastatin Calcium] 10 mg PO BEDTIME 11/28/20 [History] hydrOXYzine HCL [Hydroxyzine HCl] 25 mg PO Q6H PRN 11/28/20 [History] Esomeprazole Magnesium [Nexium] 40 mg PO BID 30 Days #60 capsule.dr 12/01/20 [Rx] Sucralfate [Carafate] 1 gm PO Q6HR 30 Days #120 tab 12/01/20 [Rx] Amoxicillin/Potassium Clav [Augmentin 875-125 Tablet] 1 each PO BID 7 Days #14 tablet 03/15/21 [Rx] Diclofenac Sodium [Voltaren] 75 mg PO BIDMEALS PRN #15 tab.cr 03/15/21 [Rx] Naproxen 250 mg PO BID #14 tablet 04/09/21 [Rx] Past Medical History HEENT History: Reports: Impaired Vision, Other (See Below) Other HEENT History: wears reading glasses, top denture Cardiovascular History: Reports: High Cholesterol Respiratory History: Reports: None Gastrointestinal History: Reports: GI Bleed, PUD Other Gastrointestinal History: occasional heartburn Genitourinary History: Reports: None 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 Musculoskeletal History: Reports: Osteoporosis, Other (See Below) Other Musculoskeletal History: hx of fx wrist & left femur Neurological History: Reports: None Psychiatric History: Reports: Anxiety, Depression Endocrine/Metabolic History: Reports: Hyperthyroidism, Osteoporosis Other Endocrine/Metabolic History: overactive thyroid Hematologic History: Reports: Anemia, Blood Transfusion(s) Immunologic History: Reports: None Oncologic (Cancer) History: Reports: None Dermatologic History: Reports: None - Infectious Disease History Infectious Disease History: Reports: Chicken Pox, Measles - Past Surgical History Head Surgeries/Procedures: Reports: None HEENT Surgical History: Reports: Other (See Below) Other HEENT Surgeries/Procedures: hx of closed reduction of fx nose Cardiovascular Surgical History: Reports: None Respiratory Surgical History: Reports: None GI Surgical History: Reports: Appendectomy, Colonoscopy, EGD Female Surgical History: Reports: Cystectomy, Hysterectomy, Salpingo- Oophorectomy, Other (See Below) Other Female Surgeries/Procedures: ovarian cystectomy, Endocrine Surgical History: Reports: None Neurological Surgical History: Reports: None Musculoskeletal Surgical History: Reports: ORIF Other Musculoskeletal Surgeries/Procedures:: ORIF left femur fx Oncologic Surgical History: Reports: None Dermatological Surgical History: Reports: None - History Comment History Comment: History of anxiety. Denies any prior cardiac or pulmonary diseases or problems. No hisotry of diabetes or HTN. Social & Family History - Family History Family Medical History: No Pertinent Family History - Tobacco Use Tobacco Use Status *Q: Current Every Day Tobacco User Years of Tobacco use: 30 Packs/Tins Daily: 1 - Caffeine Use Caffeine Use: Reports: None - Recreational Drug Use Recreational Drug Use: No Review of Systems - Review of Systems Review Of Systems: See Below ED EXAM, GENERAL - Physical Exam Exam: See Below Course - Vital Signs Last Recorded V/S: Last Vital Signs Temp 36.1 C 04/09/21 15:47 Pulse 94 04/09/21 16:26 Resp 18 04/09/21 15:47 BP 105/73 04/09/21 15:47 Pulse Ox 95 04/09/21 16:26 - Orders/Labs/Meds Meds: Medications Discontinued Medications Generic Name Dose Route Start Last Admin Trade Name Rodrigoq PRN Reason Stop Dose Admin Ketorolac Tromethamine 15 mg 04/09/21 16:10 04/09/21 16:16 Ketorolac 15 Mg/Ml Sdv IM 04/09/21 16:11 15 mg ONETIME ONE Administration Departure - Departure Time of Disposition: 16:18 Disposition: Home, Self-Care 01 Condition: Fair Clinical Impression: Achilles tendonitis - Discharge Information *PRESCRIPTION DRUG MONITORING PROGRAM REVIEWED*: No *COPY OF PRESCRIPTION DRUG MONITORING REPORT IN PATIENT MELISSA: No Prescriptions: Naproxen 250 mg PO BID #14 tablet Instructions: Achilles Tendinitis Referrals: Giovanna Rollins NP [Primary Care Provider] - Forms: ED Department Discharge Additional Instructions: Your evaluated today on an emergent basis. At this time I do believe you have what is called Achilles tendinitis. This is inflammation of the Achilles tendon. As discussed we do recommend that you not put a lot of weight onto this tendon we offered you crutches or a walking boot which you did not want at this time. Therefore I recommend that she rest at this area, keep it elevated when you are sitting, use ice to the area 20 minutes 4 times a day and take Tylenol 500 to 1000 mg every 6 hours and naproxen 250 mg twice a day. I recommend that she follow-up with orthopedics in 3 to 5 days for reevaluation. If you have any worsening pain, fever, redness I would like you to return to the emergency department. [facility] [address], [address] [place] [address] The patient is informed of any results of their evaluation and diagnostic workup and all questions are answered. They are given discharge instructions and return precautions. The patient is stable for discharge. The patient states they understand and agree with the plan and that they will return if their symptoms get worse or if they have any new concerns. The following information is given to patients seen in the emergency department who are being discharged to home. This information is to outline your options for follow-up care. We provide all patients seen in our emergency department with a follow-up referral. The need for follow-up, as well as the timing and circumstances, are variable depending upon the specifics of your emergency department visit. If you don't have a primary care physician on staff, we will provide you with a referral. We always advise you to contact your personal physician following an emergency department visit to inform them of the circumstance of the visit and for follow-up with them and/or the need for any referrals to a consulting specialist. The emergency department will also refer you to a specialist when appropriate. This referral assures that you have the opportunity for follow-up care with a specialist. All of these measure are taken in an effort to provide you with optimal care, which includes your follow-up. Under all circumstances we always encourage you to contact your private physician who remains a resource for coordinating your care. When calling for follow-up care, please make the office aware that this follow-up is from your recent emergency room visit. If for any reason you are refused follow-up, please contact the [facility] Emergency Department at and asked to speak to the emergency department charge nurse.
== END 2021-04-09 16:26 | disposition home or self-care (01) ==
LOC: MW.ED 15:19
DX: M76.62 Achilles tendinitis, left leg (principal); E03.9 Hypothyroidism, unspecified; E78.00 Pure hypercholesterolemia, unspecified; Z88.1 Allergy status to other antibiotic agents; Z88.8 Allergy status to other drugs, medicaments and biological substances; Z79.899 Other long term (current) drug therapy; Z72.0 Tobacco use
CPT/HCPCS: 96372; 99283; J1885

== ENCOUNTER 2021-05-10 10:19 | Emergency (ER) | payer MEDICARE, OTHER ==
[2021-05-10] MEDS ORDERED: Sodium Chloride 0.9% 1,000 ML IV ONE (11:26)
[2021-05-10] MEDS ORDERED: diphenhydrAMINE 50 MG/ML SDV IVPUSH ONE (11:26)
[2021-05-10] MEDS ORDERED: Ondansetron 4 MG/2 ML SDV IVPUSH ONE (11:26)
[2021-05-10] MEDS ORDERED: Ketorolac 30 MG/ML SDV IVPUSH ONE (11:26)
[2021-05-10] MEDS ORDERED: Metoclopramide 10 MG/2 ML SDV IV ONE (11:26)
--- NOTE | 2021-05-10 12:31 | EDM.PDOC ---
ED HPI GENERAL MEDICAL PROBLEM - General Chief Complaint: Headache Stated Complaint: HEADACHE AND DIZZINESS Time Seen by Provider: 05/10/21 10:35 Source of Information: Reports: Patient History Limitations: Reports: No Limitations - History of Present Illness INITIAL COMMENTS - FREE TEXT/NARRATIVE: HISTORY AND PHYSICAL: History of present illness: Patient is a 66-year-old female, with a history of migraine disorder, who presents emergency room today with concern of migraine headache. Patient states that she has had a headache for several days but today has felt dizzy so came to the emergency room in order to get help with her migraine. Patient states she is taken [id number] medications but has not taken anything today with mild relief of her headache. Patient denies any head injury or trauma. Patient states her headache today is typical of her usual migraines but has been unable to properly get it to go away. Patient denies any loss of consciousness. Pat ient expresses photophobia but denies any other symptoms or concerns. Patient denies fever, chills, chest pain, shortness of breath, or cough. Denies headache, neck stiff ness, change in vision, syncope, or near syncope. Denies nausea, vomiting, abdominal pain, diarrhea, constipation, or dysuria. Has not noted any blood in urine or stool. Patient has been eating and drinking appropriately. Review of systems: As per history of present illness and below otherwise all systems reviewed and negative. Past medical history: As per history of present illness and as reviewed below otherwise noncon tributory. Surgical history: As per history of present illness and as reviewed below otherwise noncontributory. Social history: See social history for further information Family history: As per history of present illness and as reviewed below otherwise noncontributory. Physical exam: General: Patient is alert, oriented, and in no acute distress. Patient sitting comfortably on exam table. Vitals stable and reviewed by me. HEENT: Atraumatic, normocephalic, pupils equal and reactive bilaterally, negative for conjunctival pallor or scleral icterus, mucous membranes moist, TMs normal bilaterally, throat clear, neck supple, nontender, trachea midline. No drooling or trismus noted. No meningeal signs. No hot potato voice noted. Lungs: Clear to auscultation, breath sounds equal bilaterally, chest nontender. Heart: S1S2, regular rate and rhythm without overt murmur Abdomen: Soft, nondistended, nontender. Negative for masses or hepatosplenomegaly. Negative for costovertebral tenderness. Pelvis: Stable nontender. Genitourinary: Deferred. Rectal: Deferred. Skin: Intact, warm, dry. No lesions or rashes noted. Extremities: Atraumatic, negative for cords or calf pain. Neurovascular unrem arkable. Neuro: Awake, alert, oriented. Cranial nerves II through XII unremarkable. Cerebellum unremarkable. Motor and sensory unremarkable throughout. Exam nonfocal. Notes: Signs and symptoms that were prompt return to the ED thoroughly discussed with patient. Discussed importance for follow-up with a primary care provider. Voices understanding and is agreeable to plan of care. Denies any further questions or concerns at this time. Diagnostics: None Therapeutics: Normal saline, Toradol, Zofran, Benadryl, Reglan Prescription: None Impression: Migraine headache, improved Plan: 1. Encourage small but frequent sips of fluid to prevent dehydration. 2. Follow-up with a primary care provider as discussed. Return to the ED as needed and as discussed. 3. You can alternate ibuprofen and Tylenol as directed for pain and discomfort. Definitive disposition and diagnosis as appropriate pending reevaluation and review of above. Headache Pain Score (Numeric/FACES): 6 - Related Data Allergies Allergy/AdvReac Type Severity Reaction Status Date / Time clarithromycin [From Biaxin] Allergy Hallucinati Verified 05/10/21 10:53 ons desvenlafaxine Allergy Anxiety Verified 05/10/21 10:53 doxycycline Allergy Nausea and Verified 05/10/21 10:53 Vomiting rofecoxib Allergy Cannot Verified 05/10/21 10:53 Remember topiramate Allergy Cannot Verified 05/10/21 10:53 Remember Home Meds: Home Meds LORazepam [Ativan] 1 mg PO BID 10/01/20 [History] Methimazole [Tapazole] 5 mg PO DAILY 10/01/20 [History] Alendronate Sodium 70 mg PO WEEKLY 11/28/20 [History] Celecoxib 200 mg PO DAILY 11/28/20 [History] DULoxetine HCl [Duloxetine HCl] 2 tab PO DAILY 11/28/20 [History] OLANZapine [Olanzapine] 20 mg PO BEDTIME 11/28/20 [History] Prochlorperazine Maleate [Compazine] 10 mg PO ASDIRECTED PRN 11/28/20 [History] atorvaSTATin Calcium [Atorvastatin Calcium] 10 mg PO BEDTIME 11/28/20 [History] hydrOXYzine HCL [Hydroxyzine HCl] 25 mg PO Q6H PRN 11/28/20 [History] Esomeprazole Magnesium [Nexium] 40 mg PO BID 30 Days #60 capsule. 12/01/20 [Rx] Sucralfate [Carafate] 1 gm PO Q6HR 30 Days #120 tab 12/01/20 [Rx] Amoxicillin/Potassium Clav [Augmentin 875-125 Tablet] 1 each PO BID 7 Days #14 tablet 03/15/21 [Rx] Diclofenac Sodium [Voltaren] 75 mg PO BIDMEALS PRN #15 tab.cr 03/15/21 [Rx] Naproxen 250 mg PO BID #14 tablet 04/09/21 [Rx] Past Medical History HEENT History: Reports: Impaired Vision, Other (See Below) Other HEENT History: wears reading glasses, top denture Cardiovascular History: Reports: High Cholesterol Respiratory History: Reports: None Gastrointestinal History: Reports: GI Bleed, PUD Other Gastrointestinal History: occasional heartburn Genitourinary History: Reports: None SURGICAL PHYSICIAN ASSISTANT History: Reports: None Musculoskeletal History: Reports: Osteoporosis, Other (See Below) Other Musculoskeletal History: hx of fx wrist & left femur Neurological History: Reports: None Psychiatric History: Reports: Anxiety, Depression Endocrine/Metabolic History: Reports: Hyperthyroidism, Osteoporosis Other Endocrine/Metabolic History: overactive thyroid Hematologic History: Reports: Anemia, Blood Transfusion(s) Immunologic History: Reports: None Oncologic (Cancer) History: Reports: None Dermatologic History: Reports: None - Infectious Disease History Infectious Disease History: Reports: Chicken Pox, Measles - Past Surgical History Head Surgeries/Procedures: Reports: None HEENT Surgical History: Reports: Other (See Below) Other HEENT Surgeries/Procedures: hx of closed reduction of fx nose Cardiovascular Surgical History: Reports: None Respiratory Surgical History: Reports: None GI Surgical History: Reports: Appendectomy, Colonoscopy, EGD Female Surgical History: Reports: Cystectomy, Hysterectomy, Salpingo- Oophorectomy, Other (See Below) Other Female Surgeries/Procedures: ovarian cystectomy, Endocrine Surgical History: Reports: None Neurological Surgical History: Reports: None Musculoskeletal Surgical History: Reports: ORIF Other Musculoskeletal Surgeries/Procedures:: ORIF left femur fx Oncologic Surgical History: Reports: None Dermatological Surgical History: Reports: None - History Comment History Comment: History of anxiety. Denies any prior cardiac or pulmonary diseases or problems. No hisotry of diabetes or HTN. Social & Family History - Family History Family Medical History: No Pertinent Family History - Tobacco Use Tobacco Use Status *Q: Never Tobacco User - Caffeine Use Caffeine Use: Reports: None - Recreational Drug Use Recreational Drug Use: No ED ROS GENERAL - Review of Systems Review Of Systems: Comprehensive ROS is negative, except as noted in HPI. ED EXAM, GENERAL - Physical Exam Exam: See Below (See dictation) Course - Vital Signs Last Recorded V/S: Last Vital Signs Temp 96.4 F L 05/10/21 10:53 Pulse 72 05/10/21 12:41 Resp 18 05/10/21 10:53 BP 114/70 05/10/21 12:41 Pulse Ox 98 05/10/21 12:41 - Orders/Labs/Meds Meds: Medications Discontinued Medications Generic Name Dose Route Start Last Admin Trade Name Nehemiah PRN Reason Stop Dose Admin Diphenhydramine HCl 50 mg 05/10/21 11:26 05/10/21 11:41 Diphenhydramine 50 Mg/Ml Sdv IVPUSH 05/10/21 11:27 50 mg ONETIME ONE Administration Sodium Chloride 1,000 mls @ 999 mls/hr 05/10/21 11:26 05/10/21 11:41 Normal Saline IV 05/10/21 12:26 999 mls/hr STAT ONE Administration Ketorolac Tromethamine 30 mg 05/10/21 11:26 05/10/21 11:41 Ketorolac 30 Mg/Ml Sdv IVPUSH 05/10/21 11:27 30 mg ONETIME ONE Administration Metoclopramide HCl 10 mg 05/10/21 11:26 05/10/21 11:41 Metoclopramide 10 Mg/2 Ml Sdv IV 05/10/21 11:27 10 mg ONETIME ONE Administration Ondansetron HCl 4 mg 05/10/21 11:26 05/10/21 11:41 Ondansetron 4 Mg/2 Ml Sdv IVPUSH 05/10/21 11:27 4 mg ONETIME ONE Administration Departure - Departure Time of Disposition: 12:30 Disposition: Home, Self-Care 01 Clinical Impression: Migraine Qualifiers: Migraine type: unspecified Status migrainosus presence: without status migrainosus Intractability: not intractable Qualified Code(s): G43.909 - Migraine, unspecified, not intractable, without status migrainosus - Discharge Information Instructions: Migraine Headache, [id number] Referrals: PCP,None [Primary Care Provider] - Forms: ED Department Discharge Additional Instructions: The following information is given to patients seen in the emergency department who are being discharged to home. This information is to outline your options for follow-up care. We provide all patients seen in our emergency department with a follow-up referral. The need for follow-up, as well as the timing and circumstances, are variable depending upon the specifics of your emergency department visit. If you don't have a primary care physician on staff, we will provide you with a referral. We always advise you to contact your personal physician following an emergency department visit to inform them of the circumstance of the visit and for follow-up with them and/or the need for any referrals to a consulting specialist. The emergency department will also refer you to a specialist when appropriate. This referral assures that you have the opportunity for follow-up care with a specialist. All of these measure are taken in an effort to provide you with optimal care, which includes your follow-up. Under all circumstances we always encourage you to contact your private dannyan who remains a resource for coordinating your care. When calling for follow-up care, please make the office aware that this follow-up is from your recent emergency room visit. If for any reason you are refused follow-up, please contact the [facility] Emergency Department at and asked to speak to the emergency department charge nurse. [facility] [address] [place] [id number] [facility] [address] [place] [address] 1. Encourage small but frequent sips of fluid to prevent dehydration. 2. Follow-up with a primary care provider as discussed. Return to the ED as needed and as discussed. 3. You can alternate ibuprofen and Tylenol as directed for pain and discomfort. Sepsis Event Note (ED) - Evaluation Sepsis Screening Result: No Definite Risk - Focused Exam Vital Signs: Vital Signs Temp Pulse Resp BP Pulse Ox 05/10/21 12:41 72 114/70 98 05/10/21 10:53 96.4 F L 105 H 18 114/79 93 L
== END 2021-05-10 12:42 | disposition home or self-care (01) ==
LOC: MW.ED 10:19
DX: G43.909 Migraine, unspecified, not intractable, without status migrainosus (principal); E78.00 Pure hypercholesterolemia, unspecified; Z88.1 Allergy status to other antibiotic agents; Z88.8 Allergy status to other drugs, medicaments and biological substances; Z79.899 Other long term (current) drug therapy
CPT/HCPCS: 96374; 96375; 99283; J1200; J1885; J2405; J2765; J7030

== ENCOUNTER 2021-05-14 11:03 | Emergency (ER) | payer MEDICARE, OTHER ==
--- NOTE | 2021-05-14 12:04 | PCM.EKG ---
#1 Interpretation EKG Date: 05/14/21 Time: 11:58 Rhythm: NSR Rate (Beats/Min): 95 ST-T: Normal
--- NOTE | 2021-05-14 12:04 | EDM.PDOC ---
ED HPI GENERAL MEDICAL PROBLEM - General Chief Complaint: General Stated Complaint: DIZZINESS Time Seen by Provider: 05/14/21 11:06 Source of Information: Reports: Patient History Limitations: Reports: No Limitations - History of Present Illness INITIAL COMMENTS - FREE TEXT/NARRATIVE: HISTORY AND PHYSICAL: History of present illness: Patient us a 66-year-old female, with a history of migraine disorder, who presents emergency room today with concern of headache and dizziness has been ongoing since her last ED visit. Patient states that she thought at her last ED visit on 05/10/2021, that the dizziness and headache were related to her typical migraines and states that the medication she did receive in the emergency room helped temporarily but when they wore off, she states that her symptoms have come back. Patient states she called to get an appointment with her primary care provider in the clinic but was given an appointment in May and felt like she could not wait to be seen that long so states the clinic instructed her to come back to the emergency room.. Patient's states that she is dizzy and does not necessarily feel like the room is spinning but states that she does feel as if her headache is causing the dizziness. Patient denies any head injury or loss of consciousness. Patient states she is still currently having a headache states she has not taken anything for her symptoms today. Patient denies fever, chills, chest pain, shortness of breath, or cough. Denies neck stiff ness, change in vision, syncope, or near syncope. Denies nausea, vomiting, abdominal pain, diarrhea, constipation, or dysuria. Has not noted any blood in urine or stool. Patient has been eating and drinking appropriately. Review of systems: As per history of present illness and below otherwise all systems reviewed and negative. Past medical history: As per history of present illness and as reviewed below otherwise noncontributory. Surgical history: As per history of present illness and as reviewed below otherwise noncontributory. Social history: See social history for further information Family history: As per history of present illness and as reviewed below otherwise noncontributory. Physical exam: General: Patient is alert, oriented, and in no acute distress. Patient sitting comfortably on exam table. Vitals stable and reviewed by me. HEENT: Atraumatic, normocephalic, pupils equal and reactive bilaterally, negative for conjunctival pallor or scleral icterus, mucous membranes moist, TMs normal bilaterally, throat clear, neck supple, nontender, trachea midline. No drooling or trismus noted. No meningeal signs. No hot potato voice noted. Lungs: Clear to auscultation, breath sounds equal bilaterally, chest nontender. Heart: S1S2, regular rate and rhythm without overt murmur Abdomen: Soft, nondistended, nontender. Negative for masses or hepatosplenomegaly. Negative for costovertebral tenderness. Pelvis: Stable nontender. Genitourinary: Deferred. Rectal: Deferred. Skin: Intact, warm, dry. No lesions or rashes noted. Extremities: Atraumatic, negative for cords or calf pain. Neurovascular unremarkable. Neuro: Awake, alert, oriented. Cranial nerves II through XII unremarkable. Cerebellum unremarkable. Motor and sensory unremarkable throughout. Exam nonfocal. Notes: Patient is a 66-year-old female, with a history of migraine disorder, who presents emergency room today with concern of continued dizziness and headache x1 week. Upon arrival to the ED, patient is vitally stable and well-appearing on exam. I personally did see and evaluate patient at her ED visit on 05/10/2021. At that time, patient had noted that her symptoms were typical of her usual migraine disorder and was given therapeutics with improvement of her symptoms. Given that patient has returned to the ED, stating her dizziness and headache has persisted and unlike her usual migraines now at this time, will obtain cardiac evaluation and head CT. See Dr. Santos's dictation for specific EKG interpretation. However, normal sinus rhythm without STEMI. CBC shows mild leukocytosis at 12.76, hemoglobin and hematocrit mildly elevated at 16.8 and 47.3 respectively. Otherwise all derangements of CBC unremarkable. CMP shows an isolated creatinine at 1.1 which is mild, otherwise mild derangements of CMP unremarkable. Troponin negative. Urinalysis shows 5-8 red b lood cells, 4-6 white blood cells with negative leukocyte esterase, negative nitrite. Possible early acute urinary tract infection. COVID-19 is negative. This x-ray shows no acute cardiopulmonary process. Head CT without contrast shows no acute intracranial hemorrhage or mass-effect. Mild to moderate diffuse cerebral volume loss. Smooth expansive tile remodeling on opacification of the right anterior ethmoid air cells. There is mild mass- effect within the medial extraconal right orbit. 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 There is also severe opacification of the right frontal sinus with int rasinus hyperattenuation potentially representing an septated secretions and/or fungal colonization. ENT consult recommended. I did call and speak to the ENT provider on-call, Dr. Lacho Guerrero at [facility] in [place], and thoroughly discussed patient's case. He recommends placing patient on Augmentin and to follow-up closely in his clinic for further treatment and disposition. Upon reevaluation of patient, she remains vitally stable and comfortable throughout stay in ED. Strict return precautions thoroughly discussed with patient. Discussed importance of follow-up with both primary care and the ENT provider. Voices understanding and is agreeable to plan of care. Denies any further questions or concerns at this time. Diagnostics: EKG, CBC, CMP, UA, chest x-ray, troponin, head CT, COVID-19 Therapeutics: Toradol Prescription: Augmentin Impression: Acute maxillary sinusitis Early urinary tract infection Headache, improved Dizziness, unspecified Plan: 1. Take medication as prescribed. You can alternate ibuprofen and Tylenol as directed for pain and discomfort. 2. Follow-up with the nurse researcher, Dr. Guerrero, as discussed. The number has been provided above for you to call and establish an appointment time. 3. Also follow-up with a primary care provider as discussed. Return to the ED as needed and as discussed. Definitive disposition and diagnosis as appropriate pending reevaluation and review of above. - Related Data Allergies Allergy/AdvReac Type Severity Reaction Status Date / Time clarithromycin [From Biaxin] Allergy Hallucinati Verified 05/10/21 10:53 ons desvenlafaxine Allergy Anxiety Verified 05/10/21 10:53 doxycycline Allergy Nausea and Verified 05/10/21 10:53 Vomiting rofecoxib Allergy Cannot Verified 05/10/21 10:53 Remember topiramate Allergy Cannot Verified 05/10/21 10:53 Remember Home Meds: Home Meds LORazepam [Ativan] 1 mg PO BID 10/01/20 [History] Methimazole [Tapazole] 5 mg PO DAILY 10/01/20 [History] Alendronate Sodium 70 mg PO WEEKLY 11/28/20 [History] Celecoxib 200 mg PO DAILY 11/28/20 [History] DULoxetine HCl [Duloxetine HCl] 2 tab PO DAILY 11/28/20 [History] OLANZapine [Olanzapine] 20 mg PO BEDTIME 11/28/20 [History] Prochlorperazine Maleate [Compazine] 10 mg PO ASDIRECTED PRN 11/28/20 [History] atorvaSTATin Calcium [Atorvastatin Calcium] 10 mg PO BEDTIME 11/28/20 [History] hydrOXYzine HCL [Hydroxyzine HCl] 25 mg PO Q6H PRN 11/28/20 [History] Esomeprazole Magnesium [Nexium] 40 mg PO BID 30 Days #60 capsule.dr 12/01/20 [Rx] Sucralfate [Carafate] 1 gm PO Q6HR 30 Days #120 tab 12/01/20 [Rx] Amoxicillin/Potassium Clav [Augmentin 875-125 Tablet] 1 each PO BID 7 Days #14 tablet 03/15/21 [Rx] Diclofenac Sodium [Voltaren] 75 mg PO BIDMEALS PRN #15 tab.cr 03/15/21 [Rx] Naproxen 250 mg PO BID #14 tablet 04/09/21 [Rx] Past Medical History HEENT History: Reports: Impaired Vision, Other (See Below) Other HEENT History: wears reading glasses, top denture Cardiovascular History: Reports: High Cholesterol Respiratory History: Reports: None Gastrointestinal History: Reports: GI Bleed, PUD Other Gastrointestinal History: occasional heartburn Genitourinary History: Reports: None 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 Musculoskeletal History: Reports: Osteoporosis, Other (See Below) Other Musculoskeletal History: hx of fx wrist & left femur Neurological History: Reports: None Psychiatric History: Reports: Anxiety, Depression Endocrine/Metabolic History: Reports: Hyperthyroidism, Osteoporosis Other Endocrine/Metabolic History: overactive thyroid Hematologic History: Reports: Anemia, Blood Transfusion(s) Immunologic History: Reports: None Oncologic (Cancer) History: Reports: None Dermatologic History: Reports: None - Infectious Disease History Infectious Disease History: Reports: Chicken Pox, Measles - Past Surgical History Head Surgeries/Procedures: Reports: None HEENT Surgical History: Reports: Other (See Below) Other HEENT Surgeries/Procedures: hx of closed reduction of fx nose Cardiovascular Surgical History: Reports: None Respiratory Surgical History: Reports: None GI Surgical History: Reports: Appendectomy, Colonoscopy, EGD Female Surgical History: Reports: Cystectomy, Hysterectomy, Salpingo- Oophorectomy, Other (See Below) Other Female Surgeries/Procedures: ovarian cystectomy, Endocrine Surgical History: Reports: None Neurological Surgical History: Reports: None Musculoskeletal Surgical History: Reports: ORIF Other Musculoskeletal Surgeries/Procedures:: ORIF left femur fx Oncologic Surgical History: Reports: None Dermatological Surgical History: Reports: None - History Comment History Comment: History of anxiety. Denies any prior cardiac or pulmonary diseases or problems. No hisotry of diabetes or HTN. Social & Family History - Family History Family Medical History: No Pertinent Family History - Tobacco Use Tobacco Use Status *Q: Current Every Day Tobacco User Years of Tobacco use: 40 Packs/Tins Daily: 1 - Caffeine Use Caffeine Use: Reports: Coffee - Recreational Drug Use Recreational Drug Use: No ED ROS GENERAL - Review of Systems Review Of Systems: Comprehensive ROS is negative, except as noted in HPI. ED EXAM, GENERAL - Physical Exam Exam: See Below (See dictation) Course - Vital Signs Last Recorded V/S: Last Vital Signs Temp 98.4 F 05/14/21 11:32 Pulse 82 05/14/21 14:43 Resp 18 05/14/21 14:43 BP 113/79 05/14/21 14:43 Pulse Ox 96 05/14/21 14:43 - Orders/Labs/Meds Labs: Laboratory Tests 05/14/21 05/14/21 05/14/21 Range/Units 12:02 12:11 12:11 WBC 12.76 H (4.0-11.0) K/uL RBC 5.52 (4.30-5.90) M/uL Hgb 16.8 H (12.0-16.0) g/dL Hct 47.3 H (36.0-46.0) % MCV 85.7 (80.0-98.0) fL MCH 30.4 (27.0-32.0) pg MCHC 35.5 (31.0-37.0) g/dL RDW Std Deviation 43.9 (28.0-62.0) fl RDW Coeff of Shagufta 14 (11.0-15.0) % Plt Count 356 (150-400) K/uL MPV 9.80 (7.40-12.00) fL Neut % (Auto) 81.0 H (48.0-80.0) % Lymph % (Auto) 12.9 L (16.0-40.0) % Parker % (Auto) 5.3 (0.0-15.0) % Eos % (Auto) 0.6 (0.0-7.0) % Baso % (Auto) 0.2 (0.0-1.5) % Neut # (Auto) 10.3 H (1.4-5.7) K/uL Lymph # (Auto) 1.7 (0.6-2.4) K/uL Parker # (Auto) 0.7 (0.0-0.8) K/uL Eos # (Auto) 0.1 (0.0-0.7) K/uL Baso # (Auto) 0.0 (0.0-0.1) K/uL Nucleated RBC % 0.0 /100WBC Nucleated RBCs # 0 K/uL Sodium 139 (136-145) mmol/L Potassium 4.2 (3.5-5.1) mmol/L Chloride 100 (98-107) mmol/L Carbon Dioxide 27.6 (21.0-32.0) mmol/L BUN 17 (7.0-18.0) mg/dL Creatinine 1.1 H (0.6-1.0) mg/dL Est Cr Clr Drug Dosing 47.73 mL/min Estimated GFR (MDRD) 49.8 ml/min Glucose 114 H (74-106) mg/dL Calcium 10.4 H (8.5-10.1) mg/dL Total Bilirubin 0.9 (0.2-1.0) mg/dL AST 13 L (15-37) IU/L ALT 21 (14-63) IU/L Alkaline Phosphatase 111 (46-116) U/L Troponin I < 0.050 (0.000-0.056) ng/mL Total Protein 8.0 (6.4-8.2) g/dL Albumin 4.4 (3.4-5.0) g/dL Globulin 3.6 (2.6-4.0) g/dL Albumin/Globulin Ratio 1.2 (0.9-1.6) Urine Color YELLOW Urine Appearance CLEAR Urine pH 6.0 (5.0-8.0) Ur Specific Viking >= 1.030 (1.001-1.035) Urine Protein TRACE H (NEGATIVE) mg/dL Urine Glucose (UA) NEGATIVE (NEGATIVE) mg/dL Urine Ketones NEGATIVE (NEGATIVE) mg/dL Urine Occult Blood SMALL H (NEGATIVE) Urine Nitrite NEGATIVE (NEGATIVE) Urine Bilirubin NEGATIVE (NEGATIVE) Urine Urobilinogen 0.2 (<2.0) EU/dL Ur Leukocyte Esterase NEGATIVE (NEGATIVE) Urine RBC 5-8 (0-2/HPF) Urine WBC 4-6 (0-5/HPF) Ur Epithelial Cells FEW (NONE-FEW) Urine Bacteria FEW (NEGATIVE) Urine Mucus MODERATE (NONE-MOD) SARS-CoV-2 RNA (JULIAN) (NEGATIVE) 05/14/21 Range/Units 12:24 WBC (4.0-11.0) K/uL RBC (4.30-5.90) M/uL Hgb (12.0-16.0) g/dL Hct (36.0-46.0) % MCV (80.0-98.0) fL MCH (27.0-32.0) pg MCHC (31.0-37.0) g/dL RDW Std Deviation (28.0-62.0) fl RDW Coeff of Shagufta (11.0-15.0) % Plt Count (150-400) K/uL MPV (7.40-12.00) fL Neut % (Auto) (48.0-80.0) % Lymph % (Auto) (16.0-40.0) % Parker % (Auto) (0.0-15.0) % Eos % (Auto) (0.0-7.0) % Baso % (Auto) (0.0-1.5) % Neut # (Auto) (1.4-5.7) K/uL Lymph # (Auto) (0.6-2.4) K/uL Parker # (Auto) (0.0-0.8) K/uL Eos # (Auto) (0.0-0.7) K/uL Baso # (Auto) (0.0-0.1) K/uL Nucleated RBC % /100WBC Nucleated RBCs # K/uL Sodium (136-145) mmol/L Potassium (3.5-5.1) mmol/L Chloride (98-107) mmol/L Carbon Dioxide (21.0-32.0) mmol/L BUN (7.0-18.0) mg/dL Creatinine (0.6-1.0) mg/dL Est Cr Clr Drug Dosing mL/min Estimated GFR (MDRD) ml/min Glucose (74-106) mg/dL Calcium (8.5-10.1) mg/dL Total Bilirubin (0.2-1.0) mg/dL AST (15-37) IU/L ALT (14-63) IU/L Alkaline Phosphatase (46-116) U/L Troponin I (0.000-0.056) ng/mL Total Protein (6.4-8.2) g/dL Albumin (3.4-5.0) g/dL Globulin (2.6-4.0) g/dL Albumin/Globulin Ratio (0.9-1.6) Urine Color Urine Appearance Urine pH (5.0-8.0) Ur Specific Viking (1.001-1.035) Urine Protein (NEGATIVE) mg/dL Urine Glucose (UA) (NEGATIVE) mg/dL Urine Ketones (NEGATIVE) mg/dL Urine Occult Blood (NEGATIVE) Urine Nitrite (NEGATIVE) Urine Bilirubin (NEGATIVE) Urine Urobilinogen (<2.0) EU/dL Ur Leukocyte Esterase (NEGATIVE) Urine RBC (0-2/HPF) Urine WBC (0-5/HPF) Ur Epithelial Cells (NONE-FEW) Urine Bacteria (NEGATIVE) Urine Mucus (NONE-MOD) SARS-CoV-2 RNA (JULIAN) NEGATIVE (NEGATIVE) Meds: Medications Discontinued Medications Generic Name Dose Route Start Last Admin Trade Name Freq PRN Reason Stop Dose Admin Ketorolac Tromethamine 60 mg 05/14/21 14:39 05/14/21 14:40 Ketorolac 60 Mg/2 Ml Sdv IM 05/14/21 14:40 60 mg ONETIME ONE Administration Departure - Departure Time of Disposition: 15:32 Disposition: Home, Self-Care 01 Clinical Impression: Dizziness Acute sinusitis Qualifiers: Sinusitis location: maxillary Recurrence: not specified as recurrent Qualified Code(s): J01.00 - Acute maxillary sinusitis, unspecified Urinary tract infection Qualifiers: Urinary tract infection type: acute cystitis Hematuria presence: without hematuria Qualified Code(s): N30.00 - Acute cystitis without hematuria Headache Qualifiers: Headache type: unspecified Headache chronicity pattern: unspecified pattern Intractability: not intractable Qualified Code(s): R51.9 - Headache, unspecified - Discharge Information Instructions: Sinusitis, Adult, [id number] Referrals: PCP,None [Primary Care Provider] - Forms: ED Department Discharge Additional Instructions: The following information is given to patients seen in the emergency department who are being discharged to home. This information is to outline your options for follow-up care. We provide all patients seen in our emergency department with a follow-up referral. The need for follow-up, as well as the timing and circumstances, are variable depending upon the specifics of your emergency department visit. If you don't have a primary care physician on staff, we will provide you with a referral. We always advise you to contact your personal physician following an emergency department visit to inform them of the circumstance of the visit and for follow-up with them and/or the need for any referrals to a consulting specialist. The emergency department will also refer you to a specialist when appropriate. This referral assures that you have the opportunity for follow-up care with a specialist. All of these measure are taken in an effort to provide you with optimal care, which includes your follow-up. Under all circumstances we always encourage you to contact your private physician who remains a resource for coordinating your care. When calling for follow-up care, please make the office aware that this follow-up is from your recent emergency room visit. If for any reason you are refused follow-up, please contact the [facility] Emergency Department at and asked to speak to the emergency department charge nurse. [facility] [address] [place] [id number] [facility] [address] [place] [id number] Lacho Guerrero MD, Ear Nose and Throat [facility] [address] Phone number: [phone] 1. Take medication as prescribed. You can alternate ibuprofen and Tylenol as directed for pain and discomfort. 2. Follow-up with the nurse researcher, Dr. Guerrero, as discussed. The number has been provided above for you to call and establish an appointment time. 3. Also follow-up with a primary care provider as discussed. Return to the ED as needed and as discussed. Sepsis Event Note (ED) - Focused Exam Vital Signs: Vital Signs Temp Pulse Resp BP Pulse Ox 05/14/21 14:43 82 18 113/79 96 05/14/21 11:32 98.4 F 95 18 141/78 H 97
[2021-05-14 12:52] LABS: BLOOD UREA NITROGEN,BUN 17 mg/dL (7.0-18.0); CARBON DIOXIDE,CO2 27.6 mmol/L (21.0-32.0); CHLORIDE,CL 100 mmol/L (98-107); GLUCOSE RANDOM 114 mg/dL (74-106); POTASSIUM,K 4.2 mmol/L (3.5-5.1); SODIUM,NA 139 mmol/L (136-145)
--- NOTE | 2021-05-14 13:25 | CR ---
INDICATION: Dizziness TECHNIQUE: Chest radiograph 1 view COMPARISON: 10/20/2019 FINDINGS: Mediastinum: The mediastinum is normal in appearance. The heart silhouette is normal in size and morphology. Lung: Both lungs are unremarkable in appearance. No sign of pleural effusion seen. No pneumothorax is identified. Bone and Soft tissue: Unremarkable for age. IMPRESSION: 1. No acute cardiopulmonary disease is seen. Dictated by: Jose Antonio Thapa MD @ 05/14/2021 13:24:04 (Electronically Signed)
--- NOTE | 2021-05-14 13:25 | CT ---
INDICATION: Headache. TECHNIQUE: Noncontrast CT images acquired through the brain. COMPARISON: None. FINDINGS: Prominence of the ventricles and sulci compatible with mild to moderate diffuse cerebral volume loss. No mass effect or midline shift. The pichardo-white differentiation is maintained. No acute intracranial hemorrhage or pathologic extra-axial fluid collection. Postsurgical changes of endoscopic sinus surgery. Smooth expansile remodeling and opacification of the right anterior ethmoid air cells measuring 2.5 x 2.0 x 2.0 cm (AP/TR/CC). There is mild mass effect within the medial extraconal right orbit with slight lateral deviation of the right medial rectus and right superior oblique muscles. Severe opacification of the right frontal sinus with intrasinus hyperattenuation. The calvarium is intact. The globes are symmetric. The mastoid air cells are clear. IMPRESSION: 1. No acute intracranial hemorrhage or mass effect. 2. [id number] diffuse cerebral volume loss. 3. Smooth expansile remodeling and opacification of the right anterior ethmoid air cells. There is mild mass effect within the medial extraconal right orbit. 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 There is also severe opacification of the right frontal sinus with intrasinus hyperattenuation potentially representing inspissated secretions and/or fungal colonization. ENT consultation would be recommended as clinically warranted. Please note that all CT scans at this facility use dose modulation, iterative reconstruction, and/or weight-based dosing when appropriate to reduce radiation dose to as low as reasonably achievable. Dictated by Brenton Saini MD @ 05/14/2021 1:24:54 PM (Electronically Signed)
[2021-05-14] MEDS ORDERED: Ketorolac 60 MG/2 ML SDV IM ONE (14:39)
== END 2021-05-14 14:38 | disposition home or self-care (01) ==
LOC: MW.ED 11:03
DX: R42 Dizziness and giddiness (principal); J01.00 Acute maxillary sinusitis, unspecified; N30.00 Acute cystitis without hematuria; E78.00 Pure hypercholesterolemia, unspecified; E03.9 Hypothyroidism, unspecified; Z72.0 Tobacco use; Z88.1 Allergy status to other antibiotic agents; Z88.8 Allergy status to other drugs, medicaments and biological substances; Z79.899 Other long term (current) drug therapy; Z20.822 Contact with and (suspected) exposure to COVID-19
CPT/HCPCS: 36415; 70450; 71045; 80053; 81001; 84484; 85025; 93005; 96372; 99284; J1885; U0002

== ENCOUNTER 2021-05-19 11:20 | Emergency (ER) | payer MEDICARE, OTHER ==
--- NOTE | 2021-05-19 11:49 | EDM.PDOC ---
ED HPI GENERAL MEDICAL PROBLEM - General Chief Complaint: General Stated Complaint: SINUS AND DIZZINESS Time Seen by Provider: 05/19/21 11:41 - History of Present Illness INITIAL COMMENTS - FREE TEXT/NARRATIVE: History of present illness: [] The patient has pain and tenderness in the right maxillary area with congestion. She is lightheaded and dizzy. She was seen here on and the with diagnosis of sinusitis. The CT on the suggested possible fungal infection in the right frontal sinus. She was referred to Dr. Guerrero in [facility] and he is given her appointment the week of . The patient still dizzy and returns after course of Augmentin suggested by the ENT doctor. She is not improving at all. Review of systems: As per history of present illness and below otherwise all systems reviewed and negative. Past medical history: As per history of present illness and as reviewed below otherwise noncontributory. Surgical history: As per history of present illness and as reviewed below otherwise noncontributory. Social history: No reported history of drug or alcohol abuse. Family history: As per history of present illness and as reviewed below otherwise noncontributory. Physical exam: Constitutional - well developed, well-nourished and in no acute distress HEENT - normocephalic, no evidence of trauma - external nose and mouth normal - no mass in neck and no JVD - mucosae moist EYES - full EOM, PERRL, no icterus - no evidence of inflammation, injection, or drainage Respiratory - no respiratory distress, equal bilateral expansion, lungs clear to auscultation and no abnormal lung sounds Cardiovascular - Regular Rhythm with S1 and S2 appreciated and no murmur, gallop or rub. GI - abdomen soft without distension or organomegaly - normal bowel sounds - no guard or rebound Musculoskeletal no gross deformity of long bones or joints - no tenderness, swelling or edema Neurologic - Alert and oriented times four - CN II-XII grossly intact - motor sensory and coordination symmetrically normal Psychiatric - appropriate mood and affect with normal thought content Hematologic - No petechiae or purpura - mucosa appropriate color and sclera not pale - normal nail bed color and refill Integument - no rash or evidence of trauma - normal turgor Diagnostics: [] Therapeutics: [] Impression: [] Plan: [] Definitive disposition and diagnosis as appropriate pending reevaluation and review of above. Headache Pain Score (Numeric/FACES): 10 - Related Data Allergies Allergy/AdvReac Type Severity Reaction Status Date / Time clarithromycin [From Biaxin] Allergy Hallucinati Verified 05/19/21 12:01 ons desvenlafaxine Allergy Anxiety Verified 05/19/21 12:01 doxycycline Allergy Nausea and Verified 05/19/21 12:01 Vomiting rofecoxib Allergy Cannot Verified 05/19/21 12:01 Remember topiramate Allergy Cannot Verified 05/19/21 12:01 Remember Home Meds: Home Meds LORazepam [Ativan] 1 mg PO BID 10/01/20 [History] Methimazole [Tapazole] 5 mg PO DAILY 10/01/20 [History] Alendronate Sodium 70 mg PO WEEKLY 11/28/20 [History] Celecoxib 200 mg PO DAILY 11/28/20 [History] DULoxetine HCl [Duloxetine HCl] 2 tab PO DAILY 11/28/20 [History] OLANZapine [Olanzapine] 20 mg PO BEDTIME 11/28/20 [History] Prochlorperazine Maleate [Compazine] 10 mg PO ASDIRECTED PRN 11/28/20 [History] atorvaSTATin Calcium [Atorvastatin Calcium] 10 mg PO BEDTIME 11/28/20 [History] hydrOXYzine HCL [Hydroxyzine HCl] 25 mg PO Q6H PRN 11/28/20 [History] Esomeprazole Magnesium [Nexium] 40 mg PO BID 30 Days #60 capsule. 12/01/20 [Rx] Sucralfate [Carafate] 1 gm PO Q6HR 30 Days #120 tab 12/01/20 [Rx] Amoxicillin/Potassium Clav [Augmentin 875-125 Tablet] 1 each PO BID 7 Days #14 tablet 03/15/21 [Rx] Diclofenac Sodium [Voltaren] 75 mg PO BIDMEALS PRN #15 tab.cr 03/15/21 [Rx] Naproxen 250 mg PO BID #14 tablet 04/09/21 [Rx] Meclizine [Antivert] 25 mg PO TID PRN #12 tab 05/19/21 [Rx] Sulfamethoxazole/Trimethoprim [Bactrim Ds Tablet] 1 each PO BID 10 Days #20 tablet 05/19/21 [Rx] Past Medical History HEENT History: Reports: Impaired Vision, Other (See Below) Other HEENT History: wears reading glasses, top denture Cardiovascular History: Reports: High Cholesterol Respiratory History: Reports: None Gastrointestinal History: Reports: GI Bleed, PUD Other Gastrointestinal History: occasional heartburn Genitourinary History: Reports: None [employer] PROFESS[employer] History: Reports: None Musculoskeletal History: Reports: Osteoporosis, Other (See Below) Other Musculoskeletal History: hx of fx wrist & left femur Neurological History: Reports: None Psychiatric History: Reports: Anxiety, Depression Endocrine/Metabolic History: Reports: Hyperthyroidism, Osteoporosis Other Endocrine/Metabolic History: overactive thyroid Hematologic History: Reports: Anemia, Blood Transfusion(s) Immunologic History: Reports: None Oncologic (Cancer) History: Reports: None Dermatologic History: Reports: None - Infectious Disease History Infectious Disease History: Reports: Chicken Pox, Measles - Past Surgical History Head Surgeries/Procedures: Reports: None HEENT Surgical History: Reports: Other (See Below) Other HEENT Surgeries/Procedures: hx of closed reduction of fx nose Cardiovascular Surgical History: Reports: None Respiratory Surgical History: Reports: None GI Surgical History: Reports: Appendectomy, Colonoscopy, EGD Female Surgical History: Reports: Cystectomy, Hysterectomy, Salpingo- Oophorectomy, Other (See Below) Other Female Surgeries/Procedures: ovarian cystectomy, Endocrine Surgical History: Reports: None Neurological Surgical History: Reports: None Musculoskeletal Surgical History: Reports: ORIF Other Musculoskeletal Surgeries/Procedures:: ORIF left femur fx Oncologic Surgical History: Reports: None Dermatological Surgical History: Reports: None - History Comment History Comment: History of anxiety. Denies any prior cardiac or pulmonary diseases or problems. No hisotry of diabetes or HTN. Social & Family History - Family History Family Medical History: No Pertinent Family History - Caffeine Use Caffeine Use: Reports: Coffee ED ROS GENERAL - Review of Systems Review Of Systems: Comprehensive ROS is negative, except as noted in HPI. ED EXAM, GENERAL - Physical Exam Exam: See Below Free Text/Narrative:: My physical exam is in the HPI Course - Vital Signs Last Recorded V/S: Last Vital Signs Temp 35.9 C L 05/19/21 11:59 Pulse 102 H 05/19/21 11:59 Resp 17 05/19/21 11:59 BP 133/87 05/19/21 11:59 Pulse Ox 96 05/19/21 11:59 Departure - Departure Time of Disposition: 12:14 Disposition: Home, Self-Care 01 Condition: Good Clinical Impression: Sinusitis - Discharge Information Prescriptions: Meclizine [Antivert] 25 mg PO TID PRN #12 tab PRN Reason: Dizziness Sulfamethoxazole/Trimethoprim [Bactrim Ds Tablet] 1 each PO BID 10 Days #20 tablet Referrals: PCP,None [Primary Care Provider] - Errol Burris MD [Ordering Only Provider] - Forms: ED Department Discharge Additional Instructions: Try both ENT doctors. Dr. Guerrero on instructions from the and Dr. Burris today. See which ever can see you first first. Your sinus films were sent to [facility]. [facility] [address] [place] [id number] [facility] [address] [place] [id number] The following information is given to patients seen in the emergency department who are being discharged to home. This information is to outline your options for follow-up care. We provide all patients seen in our emergency department with a follow-up referral. The need for follow-up, as well as the timing and circumstances, are variable depending upon the specifics of your emergency department visit. If you don't have a primary care physician on staff, we will provide you with a referral. We always advise you to contact your personal physician following an emergency department visit to inform them of the circumstance of the visit and for follow-up with them and/or the need for any referrals to a consulting specialist. The emergency department will also refer you to a specialist when appropriate. This referral assures that you have the opportunity for follow-up care with a specialist. All of these measure are taken in an effort to provide you with optimal care, which includes your follow-up. Under all circumstances we always encourage you to contact your private physician who remains a resource for coordinating your care. When calling for follow-up care, please make the office aware that this follow-up is from your recent emergency room visit. If for any reason you are refused follow-up, please contact the [facility] Emergency Department at and asked to speak to the emergency department charge nurse. Sepsis Event Note (ED) - Focused Exam Vital Signs: Vital Signs Temp Pulse Resp BP Pulse Ox 05/19/21 11:59 35.9 C L 102 H 17 133/87 96
== END 2021-05-19 12:36 | disposition home or self-care (01) ==
LOC: MW.ED 11:20
DX: J32.9 Chronic sinusitis, unspecified (principal); E78.00 Pure hypercholesterolemia, unspecified; Z88.1 Allergy status to other antibiotic agents; Z79.899 Other long term (current) drug therapy
CPT/HCPCS: 99283

== ENCOUNTER 2021-12-13 12:34 | Emergency (ER) | payer MEDICARE, OTHER ==
[2021-12-13] MEDS ORDERED: Ondansetron 4 MG/2 ML SDV IVPUSH ONE (13:15)
[2021-12-13] MEDS ORDERED: Sodium Chloride 0.9% 1,000 ML IV ONE (13:15)
[2021-12-13] MEDS ORDERED: Prochlorperazine 10 MG in Sodium Chloride 0.9% 50 ML IV ONE (13:19)
[2021-12-13] MEDS: OLANZapine 5 MG Tab PO STA ×2 (13:51→14:02)
[2021-12-13] MEDS ORDERED: Prochlorperazine 10 MG/2 ML SDV IVPUSH ONE (14:00)
[2021-12-13 14:29] LABS: CARBON DIOXIDE,CO2 25.2 mmol/L (21.0-32.0); POTASSIUM,K 3.6 mmol/L (3.5-5.1)
== END 2021-12-13 15:29 | disposition home or self-care (01) ==
LOC: MW.ED 12:34
DX: E86.0 Dehydration (principal); E78.00 Pure hypercholesterolemia, unspecified; Z90.49 Acquired absence of other specified parts of digestive tract; Z90.710 Acquired absence of both cervix and uterus; Z79.899 Other long term (current) drug therapy; Z88.1 Allergy status to other antibiotic agents; Z88.8 Allergy status to other drugs, medicaments and biological substances
CPT/HCPCS: 36415; 80053; 85025; 96374; 99284; J0780; J7030; A9270-GY

== ENCOUNTER 2021-12-21 13:33 | Emergency (ER) | payer MEDICARE, OTHER ==
[2021-12-21] MEDS ORDERED: Sodium Chloride 0.9% 1,000 ML IV ONE (14:45)
[2021-12-21] MEDS ORDERED: Meclizine 25 MG Tab PO ONE (15:38)
[2021-12-21 15:39] LABS: CARBON DIOXIDE,CO2 24.2 mmol/L (21.0-32.0); POTASSIUM,K 4.3 mmol/L (3.5-5.1)
[2021-12-21 16:38] LABS: CORONAVIRUS COVID-19 NAA NEGATIVE (NEGATIVE); INFLUENZA A NAA NEGATIVE (NEGATIVE); INFLUENZA B NAA NEGATIVE (NEGATIVE)
== END 2021-12-21 17:51 | disposition home or self-care (01) ==
LOC: MW.ED 13:33
DX: E86.0 Dehydration (principal); N17.9 Acute kidney failure, unspecified; N39.0 Urinary tract infection, site not specified; R53.1 Weakness; R51.9 Headache, unspecified; E78.00 Pure hypercholesterolemia, unspecified; Z86.16 Personal history of COVID-19; Z90.49 Acquired absence of other specified parts of digestive tract; Z90.710 Acquired absence of both cervix and uterus; Z79.899 Other long term (current) drug therapy; Z88.1 Allergy status to other antibiotic agents; Z88.8 Allergy status to other drugs, medicaments and biological substances; Z20.822 Contact with and (suspected) exposure to COVID-19
CPT/HCPCS: 0240U; 36415; 70450; 71045; 80053; 81001; 83690; 84484; 85025; 87086; 99285; A9270; J7030

== ENCOUNTER 2022-11-25 07:22 | Day surgery (SDC) | payer MEDICARE, OTHER ==
[2022-11-25] MEDS ORDERED: Lidocaine 2% 5 ML SDV ONE (08:57)
[2022-11-25] MEDS ORDERED: Propofol 200 MG/20 ML SDV ONE (08:58)
[2022-11-25] MEDS ORDERED: Lactated Ringers 1,000 ML IV SCH (09:15)
== END 2022-11-25 09:58 | disposition home or self-care (01) ==
LOC: MW.SDS 07:22
PROVIDERS: ATTEND Surgery
DX: K29.50 Unspecified chronic gastritis without bleeding (principal); K29.00 Acute gastritis without bleeding; K21.00 Gastro-esophageal reflux disease with esophagitis, without bleeding; F41.9 Anxiety disorder, unspecified; F32.A Depression, unspecified; E78.5 Hyperlipidemia, unspecified; E05.90 Thyrotoxicosis, unspecified without thyrotoxic crisis or storm; M81.0 Age-related osteoporosis without current pathological fracture; E78.00 Pure hypercholesterolemia, unspecified; F17.210 Nicotine dependence, cigarettes, uncomplicated; Z88.1 Allergy status to other antibiotic agents; Z88.8 Allergy status to other drugs, medicaments and biological substances; Z79.899 Other long term (current) drug therapy
CPT/HCPCS: 00731; J2704; J3490; J7120

== ENCOUNTER 2023-03-08 11:28 | Emergency (ER) | payer MEDICARE, OTHER ==
[2023-03-08 12:32] LABS: BASOPHILS PERCENT AUTO 0.2 % (0.0-1.5); EOSINOPHILS ABSOLUTE AUTO 0.3 K/uL (0.0-0.7); EOSINOPHILS PERCENT AUTO 3.2 % (0.0-7.0); HEMATOCRIT 41.2 % (36.0-46.0); HEMOGLOBIN 14.1 g/dL (12.0-16.0); LYMPHOCYTES PERCENT AUTO 12.1 % (16.0-40.0); MEAN CORPUSCULAR HEMOGLOBIN 28.7 pg (27.0-32.0); MEAN CORPUSCULAR HGB CONC 34.2 g/dL (31.0-37.0); MEAN CORPUSCULAR VOLUME 83.9 fL (80.0-98.0); MONOCYTES ABSOLUTE AUTO 0.4 K/uL (0.0-0.8); MONOCYTES PERCENT AUTO 4.5 % (0.0-15.0); NEUTROPHILS ABSOLUTE AUTO 6.6 K/uL (1.4-5.7); NRBC ABSOLUTE 0 K/uL; PLATELET COUNT,PLT 285 K/uL (150-400); RED BLOOD CELL COUNT 4.91 M/uL (4.30-5.90)
[2023-03-08 12:56] LABS: A/G RATIO 1.2 (0.9-1.6); ALBUMIN 3.6 g/dL (3.4-5.0); BILIRUBIN TOTAL 1.2 mg/dL (0.2-1.0); CARBON DIOXIDE,CO2 27.8 mmol/L (21.0-32.0); EST CRCL DRUG DOSING (CG) 25.9 mL/min; PROTEIN TOTAL,TP 6.7 g/dL (6.4-8.2)
[2023-03-08] MEDS ORDERED: Ondansetron 4 MG/2 ML SDV IVPUSH ONE (13:08)
[2023-03-08] MEDS ORDERED: Lactated Ringers 1,000 ML IV SCH (13:15)
[2023-03-08 16:35] LABS: APPEARANCE,URINE CLOUDY; BILIRUBIN,URINE SMALL (NEGATIVE); COLOR,URINE YELLOW; GLUCOSE,URINE NEGATIVE (NEGATIVE); KETONES,URINE 15 mg/dL (NEGATIVE); LEUKOCYTE ESTERASE,URINE TRACE (NEGATIVE); NITRITE,URINE NEGATIVE (NEGATIVE); OCCULT BLOOD,URINE NEGATIVE (NEGATIVE); PROTEIN,URINE 30 mg/dL (NEGATIVE); UROBILINOGEN,URINE 0.2 EU/dL (<2.0)
[2023-03-08 16:42] LABS: BACTERIA,URINE FEW (NEGATIVE); CALCIUM OXALATE CRYSTALS,URINE MANY (NEGATIVE); EPITHELIAL CELLS,URINE MANY (NONE-FEW); RBC,URINE 0-2 (0-2/HPF); SQUAMOUS EPITHELIAL CELLS,UR MANY; WBC,URINE 0-5 (0-5/HPF)
[2023-03-08 16:43] LABS: AMORPHOUS SEDIMENT,URINE RARE (NEGATIVE); HYALINE CASTS,URINE OCCASIONAL (0-2/LPF); MUCUS,URINE MANY (NONE-MOD)
== END 2023-03-08 17:21 | disposition home or self-care (01) ==
LOC: MW.ED 11:28
DX: R11.2 Nausea with vomiting, unspecified (principal); R10.9 Unspecified abdominal pain; E78.00 Pure hypercholesterolemia, unspecified; F17.210 Nicotine dependence, cigarettes, uncomplicated; Z88.1 Allergy status to other antibiotic agents; Z88.8 Allergy status to other drugs, medicaments and biological substances; Z79.899 Other long term (current) drug therapy; Z86.16 Personal history of COVID-19
CPT/HCPCS: 36415; 71250; 74176; 80053; 81001; 83690; 85025; 87086; 93005; 96361; 96374; 99284; J2405; J7120; 93010

== ENCOUNTER 2023-05-17 10:55 | Emergency (ER) | payer MEDICARE, OTHER ==
[2023-05-17] MEDS ORDERED: Ondansetron 4 MG/2 ML SDV IVPUSH ONE (11:27)
[2023-05-17] MEDS ORDERED: Sodium Chloride 0.9% 1,000 ML IV ONE (11:27)
[2023-05-17] MEDS ORDERED: Ketorolac 30 MG/ML SDV IVPUSH ONE (11:27)
[2023-05-17 11:41] LABS: BASOPHILS PERCENT AUTO 0.4 % (0.0-1.5); EOSINOPHILS ABSOLUTE AUTO 0.1 K/uL (0.0-0.7); EOSINOPHILS PERCENT AUTO 1.6 % (0.0-7.0); HEMATOCRIT 42.3 % (36.0-46.0); HEMOGLOBIN 14.4 g/dL (12.0-16.0); LYMPHOCYTES PERCENT AUTO 14.1 % (16.0-40.0); MEAN CORPUSCULAR VOLUME 85.3 fL (80.0-98.0); MONOCYTES ABSOLUTE AUTO 0.5 K/uL (0.0-0.8); NEUTROPHILS ABSOLUTE AUTO 5.3 K/uL (1.4-5.7); NEUTROPHILS PERCENT AUTO 76.9 % (48.0-80.0); NRBC ABSOLUTE 0 K/uL; PLATELET COUNT,PLT 284 K/uL (150-400); RED BLOOD CELL COUNT 4.96 M/uL (4.30-5.90)
[2023-05-17 12:04] LABS: A/G RATIO 1.1 (0.9-1.6); ALBUMIN 3.6 g/dL (3.4-5.0); BILIRUBIN TOTAL 1.2 mg/dL (0.2-1.0); CALCIUM 9.5 mg/dL (8.5-10.1); CREATININE 1.3 mg/dL (0.6-1.0); EST CRCL DRUG DOSING (CG) 37.79 mL/min; POTASSIUM,K 4.1 mmol/L (3.5-5.1)
[2023-05-17] MEDS ORDERED: Benzocaine 20% Topical Spray UD MUCMEM ONE (12:08)
[2023-05-17] MEDS ORDERED: Lidocaine 2% Viscous Solution 15 ML UD PO ONE (12:17)
== END 2023-05-17 13:16 | disposition home or self-care (01) ==
LOC: MW.ED 10:55
DX: E86.0 Dehydration (principal); E78.00 Pure hypercholesterolemia, unspecified; Z86.16 Personal history of COVID-19; Z88.1 Allergy status to other antibiotic agents; Z88.8 Allergy status to other drugs, medicaments and biological substances; Z79.899 Other long term (current) drug therapy
CPT/HCPCS: 36415; 80053; 83690; 85025; 96361; 96374; 96375; 99284; A9270; J1885; J2405; J7030

== ENCOUNTER 2023-05-27 00:08 | Emergency (ER) | payer MEDICARE, OTHER ==
[2023-05-27] MEDS ORDERED: LORazepam 0.5 MG Tab PO ONE (00:35)
[2023-05-27] MEDS ORDERED: Polyethylene Glycol 3350 Powder 17 GM Packet PO ONE (00:36)
[2023-05-27] MEDS ORDERED: Lidocaine 2% 11 ML Jelly Filled Syringe MUCMEM STA (00:37)
[2023-05-27] MEDS ORDERED: Lactated Ringers 1,000 ML IV SCH (00:45)
[2023-05-27 01:02] LABS: BASOPHILS PERCENT AUTO 0.1 % (0.0-1.5); EOSINOPHILS ABSOLUTE AUTO 0.1 K/uL (0.0-0.7); EOSINOPHILS PERCENT AUTO 0.7 % (0.0-7.0); HEMATOCRIT 37.2 % (36.0-46.0); HEMOGLOBIN 12.6 g/dL (12.0-16.0); LYMPHOCYTES PERCENT AUTO 6.9 % (16.0-40.0); MEAN CORPUSCULAR HEMOGLOBIN 28.8 pg (27.0-32.0); MEAN CORPUSCULAR HGB CONC 33.9 g/dL (31.0-37.0); MEAN CORPUSCULAR VOLUME 85.1 fL (80.0-98.0); MONOCYTES ABSOLUTE AUTO 0.8 K/uL (0.0-0.8); MONOCYTES PERCENT AUTO 5.6 % (0.0-15.0); NEUTROPHILS PERCENT AUTO 86.7 % (48.0-80.0); NRBC ABSOLUTE 0 K/uL; PLATELET COUNT,PLT 286 K/uL (150-400); RED BLOOD CELL COUNT 4.37 M/uL (4.30-5.90); WHITE BLOOD CELL COUNT,WBC 13.83 K/uL (4.0-11.0)
[2023-05-27 01:13] LABS: A/G RATIO 1.2 (0.9-1.6); ALBUMIN 3.6 g/dL (3.4-5.0); BILIRUBIN TOTAL 1.2 mg/dL (0.2-1.0); CALCIUM 8.9 mg/dL (8.5-10.1); CARBON DIOXIDE,CO2 29.4 mmol/L (21.0-32.0); EST CRCL DRUG DOSING (CG) 49.12 mL/min; POTASSIUM,K 3.7 mmol/L (3.5-5.1); PROTEIN TOTAL,TP 6.5 g/dL (6.4-8.2)
[2023-05-27] MEDS ORDERED: Iopamidol 755 MG/ML 500 ML Multipack Bottle IVPUSH ONE (01:52)
[2023-05-27] MEDS ORDERED: Ciprofloxacin 500 MG Tab PO ONE (03:14)
[2023-05-27] MEDS ORDERED: metroNIDAZOLE 250 MG Tab PO ONE (03:14)
[2023-05-27] MEDS ORDERED: oxyCODONE 5 MG Tab PO ONE (03:15)
== END 2023-05-27 05:39 | disposition home or self-care (01) ==
LOC: MW.ED 00:08
DX: K57.92 Diverticulitis of intestine, part unspecified, without perforation or abscess without bleeding (principal); E78.00 Pure hypercholesterolemia, unspecified; E05.90 Thyrotoxicosis, unspecified without thyrotoxic crisis or storm; Z86.16 Personal history of COVID-19; Z88.1 Allergy status to other antibiotic agents; Z88.8 Allergy status to other drugs, medicaments and biological substances; Z79.899 Other long term (current) drug therapy
CPT/HCPCS: 36415; 74177; 80053; 85025; 96360; 99284; A9270; J7120; Q9967

== ENCOUNTER 2023-08-19 08:29 | Day surgery (SDC) | payer MEDICARE, OTHER ==
[~2023-08-19 08:29] MED LIST changes: +Albuterol 0.083% 2.5 MG/3 ML Neb Soln NEB PRN; +HYDROmorphone 1 MG/ML Syringe IVPUSH PRN; +Metoclopramide 10 MG/2 ML SDV IVPUSH PRN; +Morphine 2 MG/ML SYRINGE IVPUSH PRN; +Naloxone 0.4 MG/ML SDV IVPUSH PRN; +Ondansetron 4 MG/2 ML SDV IVPUSH PRN; +Sodium Chloride 0.9% 10 ML Syringe FLUSH PRN; +Sodium Chloride 0.9% 2.5 ML Syringe FLUSH PRN; +Sodium Chloride 0.9% 20 ML SDV IV PRN; +ceFAZolin 2 GM in Sodium Chloride 0.9% 50 ML IV ONE; +droPERidol 5 MG/2 ML SDV IVPUSH PRN; +fentaNYL 50 MCG/ML SDV IVPUSH PRN
[2023-08-19] MEDS ORDERED: Heparin Sodium 100 Units/ML 3 ML Syringe ONE (09:03)
[2023-08-19] MEDS ORDERED: Bupivacaine 0.5% 30 ML SDV ONE (09:03)
[2023-08-19] MEDS ORDERED: Lidocaine 1% 20 ML MDV ONE (09:04)
[2023-08-19] MEDS ORDERED: fentaNYL 100 MCG/2 ML SDV ONE (09:10)
[2023-08-19] MEDS ORDERED: Propofol 200 MG/20 ML SDV ONE (09:10)
[2023-08-19] MEDS ORDERED: dexmedeTOMIDine HCl 200 MCG/2 ML SDV ONE (09:32)
[2023-08-19] MEDS ORDERED: ceFAZolin 2 GM Vial ONE (09:57)
[2023-08-19] MEDS ORDERED: Ondansetron 4 MG/2 ML SDV ONE (10:04)
[2023-08-19] MEDS ORDERED: Dexamethasone 4 MG/ML 5 ML MDV ONE (10:04)
[2023-08-19] MEDS ORDERED: ePHEDrine 50 MG/ML SDV ONE (10:09)
[2023-08-19] MEDS ORDERED: Ketorolac 30 MG/ML SDV ONE (11:08)
[2023-08-19] MEDS ORDERED: Magnesium Sulfate (4.06 MEQ/ML) 5 GM/10 ML SDV ONE (11:08)
== END 2023-08-19 12:00 | disposition home or self-care (01) ==
LOC: MW.SDS 08:29
PROVIDERS: ATTEND Surgery
DX: C34.91 Malignant neoplasm of unspecified part of right bronchus or lung (principal); I10 Essential (primary) hypertension; K21.9 Gastro-esophageal reflux disease without esophagitis; F41.9 Anxiety disorder, unspecified; Z86.16 Personal history of COVID-19; E78.5 Hyperlipidemia, unspecified; Z87.891 Personal history of nicotine dependence; Z79.899 Other long term (current) drug therapy
CPT/HCPCS: 36561; 71045; 76000; J0131; J0665; J0690; J1100; J1642; J1885; J2405; J2704; J3010; J3475; J7120; C1788; J3490

== ENCOUNTER 2023-11-14 14:27 | Emergency (ER) | payer MEDICARE, OTHER ==
[2023-11-14] MEDS: Sodium Chloride 0.9% 1,000 ML IV ONE (15:13)
[2023-11-14] MEDS: LORazepam 2 MG/ML SDV IVPUSH ONE (15:13)
[2023-11-14] MEDS: Ondansetron 4 MG/2 ML SDV IVPUSH ONE (15:14)
[2023-11-14 15:54] LABS: HEMATOCRIT 17.5 % (37.0-47.0); HEMOGLOBIN 6.2 g/dL (12.0-16.0); MEAN CORPUSCULAR HEMOGLOBIN 29.5 pg (28.0-32.0); MEAN CORPUSCULAR HGB CONC 35.4 g/dL (32.0-36.0); MEAN CORPUSCULAR VOLUME 83.3 fL (83.0-99.0); MEAN PLATELET VOLUME 9.1 fL (9.4-12.3); PLATELET COUNT,PLT 68 K/uL (150-400)
[2023-11-14 16:29] LABS: A/G RATIO 1.1 (0.9-1.6); ALBUMIN 2.4 g/dL (3.4-5.0); CALCIUM 8.6 mg/dL (8.5-10.1); CARBON DIOXIDE,CO2 25.7 mmol/L (21.0-32.0); EST CRCL DRUG DOSING (CG) 51.1 mL/min; MAGNESIUM 0.9 mg/dL (1.8-2.4); POTASSIUM,K 4.1 mmol/L (3.5-5.1); PROTEIN TOTAL,TP 4.6 g/dL (6.4-8.2)
[2023-11-14 16:50] LABS: WHITE BLOOD CELL COUNT,WBC 0.27 K/uL (3.9-11.3)
[2023-11-14] MEDS: Magnesium Sulfate/Water 2 GM in Premix Bag 1 BAG IV ONE (17:33)
[2023-11-14 17:42] LABS: BASOPHILS PERCENT MAN 0 % (0-1); EOSINOPHILS ABSOLUTE MAN 0.03 K/uL (0.00-0.45); EOSINOPHILS PERCENT MAN 10 % (0-6); LYMPHOCYTES ABSOLUTE MAN 0.23 K/uL (1.00-4.80); LYMPHOCYTES PERCENT MAN 84 % (24-44); SEG NEUTROPHILS ABSOLUTE MAN 0.02 K/uL (1.80-7.70); SEG NEUTROPHILS PERCENT MAN 6 % (41-71)
[2023-11-14 17:43] LABS: MICROCYTOSIS 1+ SLIGHT; OVALOCYTES 1+ SLIGHT
[2023-11-14 17:44] LABS: ANISOCYTOSIS 1+ SLIGHT
[2023-11-14] MEDS: Heparin Sodium 100 Units/ML 3 ML Syringe ONE (21:29)
== END 2023-11-14 23:26 | disposition home or self-care (01) ==
LOC: MW.ED 14:27
DX: D70.9 Neutropenia, unspecified (principal); D64.9 Anemia, unspecified; E78.00 Pure hypercholesterolemia, unspecified; I10 Essential (primary) hypertension; Z86.16 Personal history of COVID-19; Z79.01 Long term (current) use of anticoagulants; Z79.899 Other long term (current) drug therapy; Z88.8 Allergy status to other drugs, medicaments and biological substances; Z88.1 Allergy status to other antibiotic agents
CPT/HCPCS: 36415; 36430; 80053; 83690; 83735; 85025; 86850; 86900; 86901; 86920; 93005; 96361; 96365; 96375; 99284; J1642; J2060; J2405; J3475; J7030; P9016

== ENCOUNTER 2024-02-17 11:20 | Emergency (ER) | payer MEDICARE, OTHER ==
[2024-02-17] MEDS: Sodium Chloride 0.9% 1,000 ML IV STA (12:42)
[2024-02-17 12:47] LABS: BASOPHILS ABSOLUTE AUTO 0.02 K/uL (0.00-0.20); BASOPHILS PERCENT AUTO 0.4 % (0.0-1.0); EOSINOPHILS ABSOLUTE AUTO 0.05 K/uL (0.00-0.45); EOSINOPHILS PERCENT AUTO 0.9 % (0.0-6.0); HEMATOCRIT 34.6 % (37.0-47.0); HEMOGLOBIN 12.2 g/dL (12.0-16.0); IMMATURE GRAN ABSOLUTE AUTO 0.01 K/uL (0.00-0.05); IMMATURE GRAN PERCENT AUTO 0.2 % (0.0-0.4); LYMPHOCYTES ABSOLUTE AUTO 0.78 K/uL (1.00-4.80); LYMPHOCYTES PERCENT AUTO 14.4 % (24.0-44.0); MEAN CORPUSCULAR HEMOGLOBIN 31.9 pg (28.0-32.0); MEAN CORPUSCULAR HGB CONC 35.3 g/dL (32.0-36.0); MEAN CORPUSCULAR VOLUME 90.3 fL (83.0-99.0); MEAN PLATELET VOLUME 8.8 fL (9.4-12.3); MONOCYTES ABSOLUTE AUTO 0.35 K/uL (0.00-0.80); MONOCYTES PERCENT AUTO 6.4 % (0.0-8.0); NEUTROPHILS ABSOLUTE AUTO 4.22 K/uL (1.80-7.70); NEUTROPHILS PERCENT AUTO 77.7 % (41.0-71.0); PLATELET COUNT,PLT 179 K/uL (150-400); RED BLOOD CELL COUNT 3.83 M/uL (4.10-5.30); WHITE BLOOD CELL COUNT,WBC 5.43 K/uL (3.9-11.3)
[2024-02-17 13:27] LABS: A/G RATIO 1.2 (0.9-1.6); ALBUMIN 3.6 g/dL (3.4-5.0); BILIRUBIN TOTAL 1.1 mg/dL (0.2-1.0); CALCIUM 9.1 mg/dL (8.5-10.1); CARBON DIOXIDE,CO2 25.5 mmol/L (21.0-32.0); CREATININE 1.2 mg/dL (0.6-1.0); EST CRCL DRUG DOSING (CG) 42.35 mL/min; MAGNESIUM 1.7 mg/dL (1.8-2.4); POTASSIUM,K 3.9 mmol/L (3.5-5.1); PROTEIN TOTAL,TP 6.5 g/dL (6.4-8.2); TSH ULTRASENSITIVE 0.36 uIU/mL (0.36-3.74)
== END 2024-02-17 14:06 | disposition home or self-care (01) ==
LOC: MW.ED 11:20
DX: E86.0 Dehydration (principal); E78.00 Pure hypercholesterolemia, unspecified; F17.210 Nicotine dependence, cigarettes, uncomplicated; Z75.8 Other problems related to medical facilities and other health care; Z90.410 Acquired total absence of pancreas; Z90.49 Acquired absence of other specified parts of digestive tract; Z88.1 Allergy status to other antibiotic agents; Z88.8 Allergy status to other drugs, medicaments and biological substances
CPT/HCPCS: 36415; 80053; 83690; 83735; 84443; 84484; 85025; 96360; 99284; J7030; 99283

== ENCOUNTER 2024-03-30 09:04 | Day surgery (SDC) | payer MEDICARE, OTHER ==
[~2024-03-30 09:04] MED LIST changes: -Albuterol 0.083% 2.5 MG/3 ML Neb Soln NEB PRN; -HYDROmorphone 1 MG/ML Syringe IVPUSH PRN; -Lactated Ringers 1,000 ML IV SCH; -Metoclopramide 10 MG/2 ML SDV IVPUSH PRN; -Morphine 2 MG/ML SYRINGE IVPUSH PRN; -Naloxone 0.4 MG/ML SDV IVPUSH PRN; -Ondansetron 4 MG/2 ML SDV IVPUSH PRN; -droPERidol 5 MG/2 ML SDV IVPUSH PRN; -fentaNYL 50 MCG/ML SDV IVPUSH PRN
[2024-03-30] MEDS ORDERED: Bupivacaine 0.5% 30 ML SDV ONE (09:29)
[2024-03-30] MEDS ORDERED: ceFAZolin 1 GM Vial ONE (09:29)
[2024-03-30] MEDS ORDERED: Lidocaine 1% 20 ML MDV ONE (09:29)
[2024-03-30] MEDS: Lactated Ringers 1,000 ML IV SCH (09:40)
== END 2024-03-30 11:25 | disposition home or self-care (01) ==
LOC: MW.SDS 09:04
PROVIDERS: ATTEND Surgery
DX: T82.9XXA Unspecified complication of cardiac and vascular prosthetic device, implant and graft, initial encounter (principal); C34.90 Malignant neoplasm of unspecified part of unspecified bronchus or lung; F41.9 Anxiety disorder, unspecified; E78.00 Pure hypercholesterolemia, unspecified; I10 Essential (primary) hypertension; E03.9 Hypothyroidism, unspecified; D50.9 Iron deficiency anemia, unspecified; F17.210 Nicotine dependence, cigarettes, uncomplicated; Z88.8 Allergy status to other drugs, medicaments and biological substances; Z88.1 Allergy status to other antibiotic agents; Z79.899 Other long term (current) drug therapy; Z86.16 Personal history of COVID-19
CPT/HCPCS: 36590; J0665; J0690; J7120; J3490

== ENCOUNTER 2024-05-22 05:46 | Emergency (ER) | payer MEDICARE, OTHER ==
[2024-05-22] MEDS ORDERED: Sodium Chloride 0.9% 10 ML Syringe FLUSH PRN (06:24)
[2024-05-22 06:30] LABS: BASOPHILS ABSOLUTE AUTO 0.01 K/uL (0.00-0.20); BASOPHILS PERCENT AUTO 0.1 % (0.0-1.0); EOSINOPHILS ABSOLUTE AUTO 0.06 K/uL (0.00-0.45); EOSINOPHILS PERCENT AUTO 0.8 % (0.0-6.0); HEMOGLOBIN 12.6 g/dL (12.0-16.0); IMMATURE GRAN ABSOLUTE AUTO 0.02 K/uL (0.00-0.05); IMMATURE GRAN PERCENT AUTO 0.3 % (0.0-0.4); LYMPHOCYTES ABSOLUTE AUTO 0.57 K/uL (1.00-4.80); LYMPHOCYTES PERCENT AUTO 7.3 % (24.0-44.0); MEAN CORPUSCULAR HEMOGLOBIN 31.7 pg (28.0-32.0); MEAN CORPUSCULAR HGB CONC 34.1 g/dL (32.0-36.0); MEAN CORPUSCULAR VOLUME 93.2 fL (83.0-99.0); MEAN PLATELET VOLUME 9.5 fL (9.4-12.3); MONOCYTES ABSOLUTE AUTO 0.38 K/uL (0.00-0.80); MONOCYTES PERCENT AUTO 4.9 % (0.0-8.0); NEUTROPHILS ABSOLUTE AUTO 6.76 K/uL (1.80-7.70); NEUTROPHILS PERCENT AUTO 86.6 % (41.0-71.0); PLATELET COUNT,PLT 200 K/uL (150-400); RED BLOOD CELL COUNT 3.97 M/uL (4.10-5.30)
[2024-05-22 06:49] LABS: CORONAVIRUS COVID-19 NAA NEGATIVE (NEGATIVE); INFLUENZA A NAA NEGATIVE (NEGATIVE); INFLUENZA B NAA NEGATIVE (NEGATIVE); RESPIRATORY SYNCYTIAL VIR NAA NEGATIVE (NEGATIVE)
[2024-05-22 06:50] LABS: INR 1.03 (0.86-1.11)
[2024-05-22 06:59] LABS: LACTIC ACID 1.1 mmol/L (0.4-2.0)
[2024-05-22 07:04] LABS: ALANINE AMINOTRANSFERASE,ALT 25 IU/L (14-63); ALBUMIN 3.5 g/dL (3.4-5.0); ALKALINE PHOSPHATASE 104 U/L (46-116); ASPARTATE AMNIOTRANSFERASE,AST 18 IU/L (15-37); BLOOD UREA NITROGEN,BUN 13 mg/dL (7.0-18.0); CALCIUM 9.8 mg/dL (8.5-10.1); CARBON DIOXIDE,CO2 26.7 mmol/L (21.0-32.0); CHLORIDE,CL 105 mmol/L (98-107); CREATININE 1.1 mg/dL (0.6-1.0); EST CRCL DRUG DOSING (CG) 45.82 mL/min; GLUCOSE RANDOM 160 mg/dL (74-106); POTASSIUM,K 4.2 mmol/L (3.5-5.1); PRO B-TYPE NATRIUR PEPT,BNPPRO 170 pg/mL (0-125); PROTEIN TOTAL,TP 6.9 g/dL (6.4-8.2); SODIUM,NA 142 mmol/L (136-145)
[2024-05-22 07:07] LABS: ESTIMATED GFR 55 mL/min (>60)
[2024-05-22] MEDS: Albuterol 0.083% 2.5 MG/3 ML Neb Soln NEB ONE (07:27)
[2024-05-22] MEDS: Sodium Chloride 0.9% 2.5 ML Syringe FLUSH PRN (07:29)
[2024-05-22] MEDS: Iopamidol 755 MG/ML 500 ML Multipack Bottle IVPUSH STA (08:01)
[2024-05-22 09:15] LABS: APPEARANCE,URINE CLEAR; BILIRUBIN,URINE NEGATIVE (NEGATIVE); COLOR,URINE YELLOW; GLUCOSE,URINE NEGATIVE (NEGATIVE); KETONES,URINE 15 mg/dL (NEGATIVE); LEUKOCYTE ESTERASE,URINE NEGATIVE (NEGATIVE); NITRITE,URINE NEGATIVE (NEGATIVE); OCCULT BLOOD,URINE SMALL (NEGATIVE); PROTEIN,URINE TRACE mg/dL (NEGATIVE); UROBILINOGEN,URINE 0.2 EU/dL (<2.0)
[2024-05-22 09:28] LABS: EPITHELIAL CELLS,URINE OCCASIONAL (NONE-FEW); WBC,URINE 0-3 (0-5/HPF)
[2024-05-22 09:29] LABS: AMORPHOUS SEDIMENT,URINE LIGHT (NEGATIVE); BACTERIA,URINE FEW (NEGATIVE)
== END 2024-05-22 10:01 | disposition home or self-care (01) ==
LOC: MW.ED 05:46
DX: J98.8 Other specified respiratory disorders (principal); I10 Essential (primary) hypertension; E78.00 Pure hypercholesterolemia, unspecified; K21.9 Gastro-esophageal reflux disease without esophagitis; Z90.49 Acquired absence of other specified parts of digestive tract; Z90.710 Acquired absence of both cervix and uterus; Z79.899 Other long term (current) drug therapy; Z88.8 Allergy status to other drugs, medicaments and biological substances; Z88.1 Allergy status to other antibiotic agents; Z75.8 Other problems related to medical facilities and other health care
CPT/HCPCS: 0241U; 36415; 71045; 71275; 80053; 81001; 83605; 83880; 84484; 85025; 85610; 93005; 99285; Q9967; 93010; 99284; J3490; J7620-GY

== ENCOUNTER 2024-06-17 06:21 | Day surgery (SDC) | payer MEDICARE, OTHER ==
[2024-06-17] MEDS: Lactated Ringers 1,000 ML IV SCH (06:45)
[2024-06-17] MEDS ORDERED: Bupivacaine 0.5% 30 ML SDV ONE (07:17)
[2024-06-17] MEDS ORDERED: Lidocaine 1% 20 ML MDV ONE (07:18)
[2024-06-17] MEDS ORDERED: Metoclopramide 10 MG/2 ML SDV IVPUSH PRN (07:46)
[2024-06-17] MEDS ORDERED: Ondansetron 4 MG/2 ML SDV IVPUSH PRN (07:46)
[2024-06-17] MEDS ORDERED: Albuterol 0.083% 2.5 MG/3 ML Neb Soln NEB PRN (07:46)
[2024-06-17] MEDS ORDERED: Morphine 2 MG/ML SYRINGE IVPUSH PRN (07:46)
[2024-06-17] MEDS ORDERED: Propofol 200 MG/20 ML SDV ONE (07:46)
[2024-06-17] MEDS ORDERED: droPERidol 5 MG/2 ML SDV IVPUSH PRN (07:46)
[2024-06-17] MEDS ORDERED: Naloxone 0.4 MG/ML SDV IVPUSH PRN (07:46)
[2024-06-17] MEDS ORDERED: Phenylephrine HCl In 0.9% NaCl 1 MG/10 ML Syringe IVPUSH PRN (07:46)
[2024-06-17] MEDS ORDERED: Lidocaine 2% 5 ML SDV ONE (07:46)
[2024-06-17] MEDS ORDERED: HYDROmorphone 1 MG/ML Syringe IVPUSH PRN (07:46)
[2024-06-17] MEDS ORDERED: fentaNYL 50 MCG/ML SDV IVPUSH PRN (07:46)
[2024-06-17] MEDS ORDERED: Dexamethasone 4 MG/ML 5 ML MDV ONE (07:49)
[2024-06-17] MEDS ORDERED: ceFAZolin 1 GM Vial ONE (08:12)
[2024-06-17] MEDS ORDERED: Phenylephrine HCl In 0.9% NaCl 1 MG/10 ML Syringe ONE (08:16)
[2024-06-17] MEDS ORDERED: Glycopyrrolate 0.2 MG/ML SDV ONE (08:16)
== END 2024-06-17 10:55 | disposition home or self-care (01) ==
LOC: MW.SDS 06:21
PROVIDERS: ATTEND Surgery
DX: C34.10 Malignant neoplasm of upper lobe, unspecified bronchus or lung (principal); F41.9 Anxiety disorder, unspecified; K21.9 Gastro-esophageal reflux disease without esophagitis; I10 Essential (primary) hypertension; E78.00 Pure hypercholesterolemia, unspecified; E03.9 Hypothyroidism, unspecified; Z79.899 Other long term (current) drug therapy; Z88.5 Allergy status to narcotic agent; Z88.8 Allergy status to other drugs, medicaments and biological substances; Z88.1 Allergy status to other antibiotic agents
CPT/HCPCS: 36561; 71045; 76000; J0665; J0690; J1100; J1596; J1642; J2371; J2704; J7120; 00532; C1788; J3490

== ENCOUNTER 2024-07-10 08:07 | Emergency (ER) | payer MEDICARE, OTHER ==
[2024-07-10] MEDS ORDERED: Sodium Chloride 0.9% 2.5 ML Syringe FLUSH PRN (08:09)
[2024-07-10 08:36] LABS: BASOPHILS ABSOLUTE AUTO 0.01 K/uL (0.00-0.20); BASOPHILS PERCENT AUTO 0.1 % (0.0-1.0); EOSINOPHILS ABSOLUTE AUTO 0.01 K/uL (0.00-0.45); EOSINOPHILS PERCENT AUTO 0.1 % (0.0-6.0); HEMATOCRIT 28.1 % (37.0-47.0); HEMOGLOBIN 9.7 g/dL (12.0-16.0); IMMATURE GRAN ABSOLUTE AUTO 0.05 K/uL (0.00-0.05); IMMATURE GRAN PERCENT AUTO 0.5 % (0.0-0.4); LYMPHOCYTES ABSOLUTE AUTO 0.53 K/uL (1.00-4.80); LYMPHOCYTES PERCENT AUTO 4.8 % (24.0-44.0); MEAN CORPUSCULAR HEMOGLOBIN 31.9 pg (28.0-32.0); MEAN CORPUSCULAR HGB CONC 34.5 g/dL (32.0-36.0); MEAN CORPUSCULAR VOLUME 92.4 fL (83.0-99.0); MEAN PLATELET VOLUME 10.5 fL (9.4-12.3); MONOCYTES ABSOLUTE AUTO 0.66 K/uL (0.00-0.80); NEUTROPHILS ABSOLUTE AUTO 9.68 K/uL (1.80-7.70); NEUTROPHILS PERCENT AUTO 88.5 % (41.0-71.0); PLATELET COUNT,PLT 104 K/uL (150-400); RED BLOOD CELL COUNT 3.04 M/uL (4.10-5.30); WHITE BLOOD CELL COUNT,WBC 10.94 K/uL (3.9-11.3)
[2024-07-10] MEDS: Sodium Chloride 0.9% 1,000 ML IV STA (08:46)
[2024-07-10] MEDS: Sodium Chloride 0.9% 10 ML Syringe FLUSH PRN (08:46)
[2024-07-10] MEDS: Ondansetron 4 MG/2 ML SDV IVPUSH ONE (08:46)
[2024-07-10 08:55] LABS: ALBUMIN 3.4 g/dL (3.4-5.0); BILIRUBIN TOTAL 0.7 mg/dL (0.2-1.0); CALCIUM 9.1 mg/dL (8.5-10.1); CARBON DIOXIDE,CO2 24.3 mmol/L (21.0-32.0); EST CRCL DRUG DOSING (CG) 50.12 mL/min; POTASSIUM,K 3.5 mmol/L (3.5-5.1); PROTEIN TOTAL,TP 6.7 g/dL (6.4-8.2)
[2024-07-10] MEDS ORDERED: Magnesium Sulfate (4.06 MEQ/ML) 5 GM/10 ML SDV IV ONE (10:27)
[2024-07-10 10:35] LABS: APPEARANCE,URINE SLT CLOUDY; BILIRUBIN,URINE NEGATIVE (NEGATIVE); COLOR,URINE YELLOW; GLUCOSE,URINE NEGATIVE (NEGATIVE); KETONES,URINE NEGATIVE (NEGATIVE); LEUKOCYTE ESTERASE,URINE NEGATIVE (NEGATIVE); NITRITE,URINE NEGATIVE (NEGATIVE); OCCULT BLOOD,URINE TRACE-INTACT (NEGATIVE); PROTEIN,URINE NEGATIVE (NEGATIVE); UROBILINOGEN,URINE 0.2 EU/dL (<2.0)
[2024-07-10 10:43] LABS: BACTERIA,URINE 1+ (NEGATIVE); EPITHELIAL CELLS,URINE MODERATE (NONE-FEW); MUCUS,URINE LIGHT (NONE-MOD)
[2024-07-10] MEDS: Magnesium Sulfate/Water Premix 2 GM in Premix Bag 1 BAG IV ONE (10:55)
[2024-07-10] MEDS: Magnesium Sulfate/Water Premix 50 ML ONE (10:56)
[2024-07-10] MEDS: Potassium Chloride 20 MEQ Tab.ER PO ONE (11:54)
== END 2024-07-10 12:00 | disposition home or self-care (01) ==
LOC: MW.ED 08:07
DX: R11.2 Nausea with vomiting, unspecified (principal); R10.13 Epigastric pain; D64.9 Anemia, unspecified; I10 Essential (primary) hypertension; E78.00 Pure hypercholesterolemia, unspecified; K21.9 Gastro-esophageal reflux disease without esophagitis; Z85.118 Personal history of other malignant neoplasm of bronchus and lung; Z90.49 Acquired absence of other specified parts of digestive tract; Z90.710 Acquired absence of both cervix and uterus; Z88.1 Allergy status to other antibiotic agents; Z88.8 Allergy status to other drugs, medicaments and biological substances; Z79.891 Long term (current) use of opiate analgesic; Z79.899 Other long term (current) drug therapy; Z75.8 Other problems related to medical facilities and other health care
CPT/HCPCS: 36415; 80053; 81001; 83690; 83735; 84484; 85025; 93005; 96361; 96365; 96375; 99284; A9270; J1642; J2405; J3475; J3490; J7030

== ENCOUNTER 2024-11-28 15:14 | Emergency (ER) | payer MEDICARE, OTHER ==
[2024-11-28] MEDS: Ondansetron 4 MG Tab.DIS PO STA (16:43)
[2024-11-28] MEDS: oxyCODONE 5 MG Tab PO STA ×2 (16:43)
== END 2024-11-28 17:40 | disposition home or self-care (01) ==
LOC: MW.ED 15:14
DX: M17.11 Unilateral primary osteoarthritis, right knee (principal); I10 Essential (primary) hypertension; E78.00 Pure hypercholesterolemia, unspecified; Z75.8 Other problems related to medical facilities and other health care; Z88.1 Allergy status to other antibiotic agents; Z88.8 Allergy status to other drugs, medicaments and biological substances; Z79.899 Other long term (current) drug therapy
CPT/HCPCS: 73564; 99283; A9270

== ENCOUNTER 2025-05-08 05:52 | Emergency (ER) | payer MEDICARE, OTHER ==
[2025-05-08 06:08] LABS: BASOPHILS ABSOLUTE AUTO 0.02 K/uL (0.00-0.20); BASOPHILS PERCENT AUTO 0.2 % (0.0-1.0); EOSINOPHILS ABSOLUTE AUTO 0.02 K/uL (0.00-0.45); EOSINOPHILS PERCENT AUTO 0.2 % (0.0-6.0); IMMATURE GRAN ABSOLUTE AUTO 0.03 K/uL (0.00-0.05); IMMATURE GRAN PERCENT AUTO 0.4 % (0.0-0.4); LYMPHOCYTES ABSOLUTE AUTO 0.59 K/uL (1.00-4.80); LYMPHOCYTES PERCENT AUTO 6.9 % (24.0-44.0); MEAN PLATELET VOLUME 9.3 fL (9.4-12.3); MONOCYTES ABSOLUTE AUTO 0.31 K/uL (0.00-0.80); MONOCYTES PERCENT AUTO 3.6 % (0.0-8.0); NEUTROPHILS ABSOLUTE AUTO 7.55 K/uL (1.80-7.70); NEUTROPHILS PERCENT AUTO 88.7 % (41.0-71.0); NRBC ABSOLUTE 0.00 K/uL (0.00-0.02); NRBC PERCENT 0.0 /100WBC (0.0-0.2); PLATELET COUNT,PLT 273 K/uL (150-400); RED BLOOD CELL COUNT 3.55 M/uL (4.10-5.30); WHITE BLOOD CELL COUNT,WBC 8.52 K/uL (3.9-11.3)
[2025-05-08] MEDS: Sodium Chloride 0.9% 2.5 ML Syringe FLUSH PRN (06:11)
[2025-05-08] MEDS: Sodium Chloride 0.9% 10 ML Syringe FLUSH PRN (06:11)
[2025-05-08 06:16] LABS: INR 1.05 (0.86-1.11); PTT,PARTIAL THROMBOPLSTIN TIME 29.0 SEC (23.9-30.7)
[2025-05-08 06:37] LABS: LACTIC ACID 0.9 mmol/L (0.4-2.0)
[2025-05-08 06:40] LABS: A/G RATIO 0.8 (0.9-1.6); ALANINE AMINOTRANSFERASE,ALT 24.0 IU/L (14-63); ASPARTATE AMNIOTRANSFERASE,AST 22.0 IU/L (15-37); BILIRUBIN TOTAL 0.7 mg/dL (0.2-1.0); BLOOD UREA NITROGEN,BUN 20.0 mg/dL (7.0-18.0); CARBON DIOXIDE,CO2 20.8 mmol/L (21.0-32.0); CHLORIDE,CL 108.0 mmol/L (98-107); CREATINE KINASE,CK 31.0 U/L (26-308); CREATININE 1.0 mg/dL (0.6-1.0); EST CRCL DRUG DOSING (CG) 49.7 mL/min; GLUCOSE RANDOM 122.0 mg/dL (74-106); POTASSIUM,K 4.3 mmol/L (3.5-5.1); PRO B-TYPE NATRIUR PEPT,BNPPRO 109.0 pg/mL (0-125); PROTEIN TOTAL,TP 6.5 g/dL (6.4-8.2); SODIUM,NA 141.0 mmol/L (136-145)
[2025-05-08 06:48] LABS: ESTIMATED GFR 61.0 mL/min (>60)
[2025-05-08] MEDS: Pantoprazole 80 MG in Sodium Chloride 0.9% 10 ML IVPUSH ONE (06:52)
[2025-05-08] MEDS: Iopamidol 755 Mg/ML 100 ML Bottle IVPUSH ONE (07:33)
[2025-05-08] MEDS: Ondansetron 4 MG/2 ML SDV IVPUSH ONE (08:07)
[2025-05-08 08:22] LABS: GLUCOSE,URINE NEGATIVE (NEGATIVE); OCCULT BLOOD,URINE SMALL (NEGATIVE)
[2025-05-08] MEDS: Magnesium Sulfate 2 GM/50 mL 2 GM in Premix Bag 1 BAG IV ONE (08:23)
[2025-05-08 08:27] LABS: APPEARANCE,URINE CLOUDY
[2025-05-08 08:30] LABS: EPITHELIAL CELLS,URINE FEW (NONE-FEW); YEAST,URINE FEW
== END 2025-05-08 09:31 | disposition left against medical advice (07) ==
LOC: MW.ED 05:52
DX: K92.2 Gastrointestinal hemorrhage, unspecified (principal); E78.00 Pure hypercholesterolemia, unspecified; I10 Essential (primary) hypertension; K21.9 Gastro-esophageal reflux disease without esophagitis; Z88.1 Allergy status to other antibiotic agents; Z88.8 Allergy status to other drugs, medicaments and biological substances; Z79.899 Other long term (current) drug therapy
CPT/HCPCS: 36415; 71045; 74177; 80053; 81001; 82550; 83605; 83735; 83880; 84484; 85025; 85610; 85730; 93005; 96361; 96365; 96375; 99285; J2405; J2470; J2765; J3475; J7030; J7040; Q9967; 87086; 99283

== ENCOUNTER 2025-06-27 07:33 | Emergency (ER) | payer MEDICARE, OTHER ==
[2025-06-27 08:12] LABS: BASOPHILS ABSOLUTE AUTO 0.02 K/uL (0.00-0.20); BASOPHILS PERCENT AUTO 0.2 % (0.0-1.0); EOSINOPHILS ABSOLUTE AUTO 0.35 K/uL (0.00-0.45); EOSINOPHILS PERCENT AUTO 3.8 % (0.0-6.0); IMMATURE GRAN ABSOLUTE AUTO 0.02 K/uL (0.00-0.05); IMMATURE GRAN PERCENT AUTO 0.2 % (0.0-0.4); LYMPHOCYTES ABSOLUTE AUTO 0.97 K/uL (1.00-4.80); LYMPHOCYTES PERCENT AUTO 10.5 % (24.0-44.0); MEAN PLATELET VOLUME 9.7 fL (9.4-12.3); MONOCYTES ABSOLUTE AUTO 0.41 K/uL (0.00-0.80); MONOCYTES PERCENT AUTO 4.4 % (0.0-8.0); NEUTROPHILS ABSOLUTE AUTO 7.49 K/uL (1.80-7.70); NEUTROPHILS PERCENT AUTO 80.9 % (41.0-71.0); NRBC ABSOLUTE 0.00 K/uL (0.00-0.02); NRBC PERCENT 0.0 /100WBC (0.0-0.2); PLATELET COUNT,PLT 437 K/uL (150-400); RED BLOOD CELL COUNT 3.67 M/uL (4.10-5.30); WHITE BLOOD CELL COUNT,WBC 9.26 K/uL (3.9-11.3)
[2025-06-27 08:35] LABS: INR 0.96 (0.86-1.11)
[2025-06-27] MEDS: Pantoprazole 80 MG in Sodium Chloride 0.9% 20 ML IVPUSH ONE (08:36)
[2025-06-27 08:38] LABS: LACTIC ACID 2.2 mmol/L (0.4-2.0)
[2025-06-27 08:44] LABS: A/G RATIO 1.0 (0.9-1.6); ALANINE AMINOTRANSFERASE,ALT 27.0 IU/L (14-63); ASPARTATE AMNIOTRANSFERASE,AST 22.0 IU/L (15-37); BILIRUBIN TOTAL 0.4 mg/dL (0.2-1.0); BLOOD UREA NITROGEN,BUN 16.0 mg/dL (7.0-18.0); CARBON DIOXIDE,CO2 25.6 mmol/L (21.0-32.0); CHLORIDE,CL 102.0 mmol/L (98-107); CREATININE 1.5 mg/dL (0.6-1.0); EST CRCL DRUG DOSING (CG) 31.68 mL/min; GLUCOSE RANDOM 165.0 mg/dL (74-106); POTASSIUM,K 3.4 mmol/L (3.5-5.1); PRO B-TYPE NATRIUR PEPT,BNPPRO 79.0 pg/mL (0-125); PROTEIN TOTAL,TP 6.9 g/dL (6.4-8.2); SODIUM,NA 140.0 mmol/L (136-145)
[2025-06-27 08:45] LABS: ESTIMATED GFR 37.0 mL/min (>60)
[2025-06-27 09:20] LABS: CORONAVIRUS COVID-19 NAA NEGATIVE (NEGATIVE); INFLUENZA A NAA NEGATIVE (NEGATIVE); INFLUENZA B NAA NEGATIVE (NEGATIVE)
== END 2025-06-27 09:34 | disposition left against medical advice (07) ==
LOC: MW.ED 07:33
DX: R10.9 Unspecified abdominal pain (principal); I95.9 Hypotension, unspecified; I10 Essential (primary) hypertension; E78.00 Pure hypercholesterolemia, unspecified; K21.9 Gastro-esophageal reflux disease without esophagitis; Z90.49 Acquired absence of other specified parts of digestive tract; F17.200 Nicotine dependence, unspecified, uncomplicated; Z88.1 Allergy status to other antibiotic agents; Z88.8 Allergy status to other drugs, medicaments and biological substances; Z79.899 Other long term (current) drug therapy
CPT/HCPCS: 71046; 80053; 83605; 83690; 83735; 83880; 84484; 85025; 85610; 86850; 86900; 86901; 87040; 87636; 96374; 99284; J2470; J7030; 99283

== ENCOUNTER 2025-07-04 17:56 | Inpatient (IN) | payer MEDICARE, OTHER ==
[2025-07-04 18:57] LABS: BASOPHILS ABSOLUTE AUTO 0.03 K/uL (0.00-0.20); BASOPHILS PERCENT AUTO 0.2 % (0.0-1.0); EOSINOPHILS ABSOLUTE AUTO 0.03 K/uL (0.00-0.45); EOSINOPHILS PERCENT AUTO 0.2 % (0.0-6.0); IMMATURE GRAN ABSOLUTE AUTO 0.06 K/uL (0.00-0.05); IMMATURE GRAN PERCENT AUTO 0.4 % (0.0-0.4); LYMPHOCYTES ABSOLUTE AUTO 0.42 K/uL (1.00-4.80); LYMPHOCYTES PERCENT AUTO 2.6 % (24.0-44.0); MEAN PLATELET VOLUME 9.6 fL (9.4-12.3); MONOCYTES ABSOLUTE AUTO 0.74 K/uL (0.00-0.80); MONOCYTES PERCENT AUTO 4.5 % (0.0-8.0); NEUTROPHILS ABSOLUTE AUTO 15.03 K/uL (1.80-7.70); NEUTROPHILS PERCENT AUTO 92.1 % (41.0-71.0); NRBC ABSOLUTE 0.00 K/uL (0.00-0.02); NRBC PERCENT 0.0 /100WBC (0.0-0.2); PLATELET COUNT,PLT 280 K/uL (150-400); RED BLOOD CELL COUNT 3.43 M/uL (4.10-5.30); WHITE BLOOD CELL COUNT,WBC 16.31 K/uL (3.9-11.3)
[2025-07-04 19:44] LABS: A/G RATIO 0.9 (0.9-1.6); ALANINE AMINOTRANSFERASE,ALT 19 IU/L (14-63); ASPARTATE AMNIOTRANSFERASE,AST 19 IU/L (15-37); BILIRUBIN TOTAL 0.8 mg/dL (0.2-1.0); BLOOD UREA NITROGEN,BUN 11 mg/dL (7.0-18.0); CARBON DIOXIDE,CO2 29.2 mmol/L (21.0-32.0); CHLORIDE,CL 94 mmol/L (98-107); CREATININE 1.2 mg/dL (0.6-1.0); EST CRCL DRUG DOSING (CG) 40.86 mL/min; GLUCOSE RANDOM 89 mg/dL (74-106); POTASSIUM,K 3.7 mmol/L (3.5-5.1); PROTEIN TOTAL,TP 6.5 g/dL (6.4-8.2); SODIUM,NA 133 mmol/L (136-145)
[2025-07-04 19:50] LABS: ESTIMATED GFR 49 mL/min (>60); ETHANOL BLOOD MEDICAL < 3.0 mg/dL
[2025-07-04] MEDS: Iopamidol 755 MG/ML 500 ML Multipack Bottle IVPUSH STA (20:39)
[2025-07-04 20:55] LABS: APPEARANCE,URINE CLEAR; GLUCOSE,URINE NEGATIVE (NEGATIVE); OCCULT BLOOD,URINE NEGATIVE (NEGATIVE)
[2025-07-04 21:03] LABS: AMPHETAMINES SCREEN, URINE NEGATIVE (CUTOFF=500); BUPRENORPHINE SCREEN,URINE NEGATIVE (CUTOFF=10); METHADONE SCREEN, URINE NEGATIVE (CUTOFF=200); METHAMPHETAMINES SCREEN, URINE NEGATIVE (CUTOFF=500); OXYCODONE SCREEN,URINE PRESUMPTIVE POSITIVE (CUT0FF=100); PCP SCREEN,URINE NEGATIVE (CUTOFF=25); THC SCREEN,URINE 20 NG/ML NEGATIVE (CUTOFF=50)
[2025-07-04 22:22] LABS: LACTIC ACID 0.9 mmol/L (0.4-2.0)
[2025-07-05] MEDS ORDERED: Sodium Chloride 0.9% 10 ML Syringe FLUSH PRN (00:41)
[2025-07-05] MEDS ORDERED: Sodium Chloride 0.9% 2.5 ML Syringe FLUSH PRN (00:41)
[2025-07-05] MEDS: Levofloxacin/Dextrose 5%-Water 750 MG in Premix Bag 1 BAG IV SCH (01:53)
[2025-07-05 02:14] LABS: CORONAVIRUS COVID-19 NAA NEGATIVE (NEGATIVE); INFLUENZA A NAA NEGATIVE (NEGATIVE); INFLUENZA B NAA NEGATIVE (NEGATIVE)
[2025-07-05 05:46] LABS: BASOPHILS ABSOLUTE AUTO 0.02 K/uL (0.00-0.20); BASOPHILS PERCENT AUTO 0.2 % (0.0-1.0); EOSINOPHILS ABSOLUTE AUTO 0.04 K/uL (0.00-0.45); EOSINOPHILS PERCENT AUTO 0.4 % (0.0-6.0); IMMATURE GRAN ABSOLUTE AUTO 0.03 K/uL (0.00-0.05); IMMATURE GRAN PERCENT AUTO 0.3 % (0.0-0.4); LYMPHOCYTES ABSOLUTE AUTO 0.43 K/uL (1.00-4.80); LYMPHOCYTES PERCENT AUTO 4.1 % (24.0-44.0); MEAN PLATELET VOLUME 9.4 fL (9.4-12.3); MONOCYTES ABSOLUTE AUTO 0.58 K/uL (0.00-0.80); MONOCYTES PERCENT AUTO 5.5 % (0.0-8.0); NEUTROPHILS ABSOLUTE AUTO 9.47 K/uL (1.80-7.70); NEUTROPHILS PERCENT AUTO 89.5 % (41.0-71.0); NRBC ABSOLUTE 0.00 K/uL (0.00-0.02); NRBC PERCENT 0.0 /100WBC (0.0-0.2); PLATELET COUNT,PLT 242 K/uL (150-400); RED BLOOD CELL COUNT 2.98 M/uL (4.10-5.30); WHITE BLOOD CELL COUNT,WBC 10.57 K/uL (3.9-11.3)
[2025-07-05 06:08] LABS: A/G RATIO 0.8 (0.9-1.6); ALANINE AMINOTRANSFERASE,ALT 14.0 IU/L (14-63); ASPARTATE AMNIOTRANSFERASE,AST 13.0 IU/L (15-37); BILIRUBIN TOTAL 0.6 mg/dL (0.2-1.0); BLOOD UREA NITROGEN,BUN 10.0 mg/dL (7.0-18.0); CARBON DIOXIDE,CO2 26.6 mmol/L (21.0-32.0); CHLORIDE,CL 100.0 mmol/L (98-107); CREATININE 1.0 mg/dL (0.6-1.0); EST CRCL DRUG DOSING (CG) 49.03 mL/min; ESTIMATED GFR 61.0 mL/min (>60); GLUCOSE RANDOM 78.0 mg/dL (74-106); POTASSIUM,K 3.0 mmol/L (3.5-5.1); PROTEIN TOTAL,TP 5.0 g/dL (6.4-8.2); SODIUM,NA 136.0 mmol/L (136-145)
[2025-07-05] MEDS: Potassium Chloride 20 MEQ Tab.ER PO ONE (11:34)
[2025-07-06 05:33] LABS: BASOPHILS ABSOLUTE AUTO 0.03 K/uL (0.00-0.20); BASOPHILS PERCENT AUTO 0.5 % (0.0-1.0); EOSINOPHILS ABSOLUTE AUTO 0.17 K/uL (0.00-0.45); EOSINOPHILS PERCENT AUTO 3.0 % (0.0-6.0); IMMATURE GRAN ABSOLUTE AUTO 0.02 K/uL (0.00-0.05); IMMATURE GRAN PERCENT AUTO 0.4 % (0.0-0.4); LYMPHOCYTES ABSOLUTE AUTO 0.82 K/uL (1.00-4.80); LYMPHOCYTES PERCENT AUTO 14.6 % (24.0-44.0); MEAN PLATELET VOLUME 9.4 fL (9.4-12.3); MONOCYTES ABSOLUTE AUTO 0.51 K/uL (0.00-0.80); MONOCYTES PERCENT AUTO 9.1 % (0.0-8.0); NEUTROPHILS ABSOLUTE AUTO 4.06 K/uL (1.80-7.70); NEUTROPHILS PERCENT AUTO 72.4 % (41.0-71.0); NRBC ABSOLUTE 0.00 K/uL (0.00-0.02); NRBC PERCENT 0.0 /100WBC (0.0-0.2); PLATELET COUNT,PLT 235 K/uL (150-400); RED BLOOD CELL COUNT 2.62 M/uL (4.10-5.30); WHITE BLOOD CELL COUNT,WBC 5.61 K/uL (3.9-11.3)
[2025-07-06 06:02] LABS: ALANINE AMINOTRANSFERASE,ALT 17.0 IU/L (14-63); ASPARTATE AMNIOTRANSFERASE,AST 18.0 IU/L (15-37); BILIRUBIN TOTAL 0.4 mg/dL (0.2-1.0); BLOOD UREA NITROGEN,BUN 7.0 mg/dL (7.0-18.0); CARBON DIOXIDE,CO2 27.0 mmol/L (21.0-32.0); CHLORIDE,CL 105.0 mmol/L (98-107); CREATININE 1.1 mg/dL (0.6-1.0); EST CRCL DRUG DOSING (CG) 44.58 mL/min; GLUCOSE RANDOM 77.0 mg/dL (74-106); PHOSPHORUS 1.8 mg/dL (2.6-4.7); POTASSIUM,K 3.9 mmol/L (3.5-5.1); PROTEIN TOTAL,TP 4.8 g/dL (6.4-8.2); SODIUM,NA 138.0 mmol/L (136-145)
[2025-07-06 06:04] LABS: A/G RATIO 0.9 (0.9-1.6); ESTIMATED GFR 54.0 mL/min (>60)
[2025-07-06] MEDS: Phosphorus #1 250 MG Tab PO SCH (08:11)
== END 2025-07-06 11:12 | disposition home or self-care (01) | DRG 91 ==
LOC: MW.ED 17:56 → MW.MS 21:28 → OBSVTOIN 07-05 09:49 → INTOOBSV 07-05 09:49 → OBSVTOIN 07-05 18:37 → INTOOBSV 07-05 18:37 → MW.MS 07-05 18:38
PROVIDERS: ADMIT Internal Medicine; ATTEND Internal Medicine
DX: G92.8 Other toxic encephalopathy (principal); J18.9 Pneumonia, unspecified organism; E87.1 Hypo-osmolality and hyponatremia; E46 Unspecified protein-calorie malnutrition; C34.90 Malignant neoplasm of unspecified part of unspecified bronchus or lung; C78.7 Secondary malignant neoplasm of liver and intrahepatic bile duct; C79.51 Secondary malignant neoplasm of bone; N13.30 Unspecified hydronephrosis; K52.9 Noninfective gastroenteritis and colitis, unspecified; E87.6 Hypokalemia; E88.09 Other disorders of plasma-protein metabolism, not elsewhere classified; E83.39 Other disorders of phosphorus metabolism; H54.7 Unspecified visual loss; F11.10 Opioid abuse, uncomplicated; K21.9 Gastro-esophageal reflux disease without esophagitis; N80.9 Endometriosis, unspecified; M81.0 Age-related osteoporosis without current pathological fracture; F32.A Depression, unspecified; I12.9 Hypertensive chronic kidney disease with stage 1 through stage 4 chronic kidney disease, or unspecified chronic kidney disease; N18.9 Chronic kidney disease, unspecified; E03.9 Hypothyroidism, unspecified; E78.00 Pure hypercholesterolemia, unspecified; M19.90 Unspecified osteoarthritis, unspecified site; F41.9 Anxiety disorder, unspecified; K59.09 Other constipation; K57.30 Diverticulosis of large intestine without perforation or abscess without bleeding; D63.1 Anemia in chronic kidney disease; Z96.60 Presence of unspecified orthopedic joint implant; Z79.899 Other long term (current) drug therapy; Z90.49 Acquired absence of other specified parts of digestive tract; Z72.0 Tobacco use; Z79.891 Long term (current) use of opiate analgesic; Z88.8 Allergy status to other drugs, medicaments and biological substances; Z98.890 Other specified postprocedural states; Z90.6 Acquired absence of other parts of urinary tract; Z90.710 Acquired absence of both cervix and uterus; Z68.20 Body mass index [BMI] 20.0-20.9, adult; Z90.721 Acquired absence of ovaries, unilateral; Z88.1 Allergy status to other antibiotic agents; T40.2X5A Adverse effect of other opioids, initial encounter; T40.605A Adverse effect of unspecified narcotics, initial encounter; T42.4X5A Adverse effect of benzodiazepines, initial encounter; Y92.89 Other specified places as the place of occurrence of the external cause
CPT/HCPCS: 36415 ×2; 70450; 71045; 74177; 80053 ×2; 80143; 80179; 80305; 80307; 81003; 82140; 82375; 83605; 83735; 84100; 85025 ×2; 87636; 93005; 96360; 99285; A9270 ×4; J1956; J7030 ×3; Q9967; 93010; 96361; 96365; 96366; 99222; 99239; G0378

== ENCOUNTER 2025-07-14 13:40 | Observation (INO) | payer MEDICARE, OTHER ==
[2025-07-14] MEDS ORDERED: Sodium Chloride 0.9% 2.5 ML Syringe FLUSH PRN ×2 (13:48→17:23)
[2025-07-14] MEDS ORDERED: Sodium Chloride 0.9% 10 ML Syringe FLUSH PRN ×2 (13:48→17:23)
[2025-07-14] MEDS: Ondansetron 4 MG/2 ML SDV IVPUSH ONE (14:12)
[2025-07-14 14:23] LABS: BASOPHILS ABSOLUTE AUTO 0.01 K/uL (0.00-0.20); BASOPHILS PERCENT AUTO 0.1 % (0.0-1.0); EOSINOPHILS ABSOLUTE AUTO 0.00 K/uL (0.00-0.45); EOSINOPHILS PERCENT AUTO 0.0 % (0.0-6.0); IMMATURE GRAN ABSOLUTE AUTO 0.04 K/uL (0.00-0.05); IMMATURE GRAN PERCENT AUTO 0.4 % (0.0-0.4); LYMPHOCYTES ABSOLUTE AUTO 0.40 K/uL (1.00-4.80); LYMPHOCYTES PERCENT AUTO 3.8 % (24.0-44.0); MEAN PLATELET VOLUME 9.8 fL (9.4-12.3); MONOCYTES ABSOLUTE AUTO 0.23 K/uL (0.00-0.80); MONOCYTES PERCENT AUTO 2.2 % (0.0-8.0); NEUTROPHILS ABSOLUTE AUTO 9.84 K/uL (1.80-7.70); NEUTROPHILS PERCENT AUTO 93.5 % (41.0-71.0); NRBC ABSOLUTE 0.00 K/uL (0.00-0.02); NRBC PERCENT 0.0 /100WBC (0.0-0.2); PLATELET COUNT,PLT 244 K/uL (150-400); RED BLOOD CELL COUNT 2.70 M/uL (4.10-5.30); WHITE BLOOD CELL COUNT,WBC 10.52 K/uL (3.9-11.3)
[2025-07-14 14:34] LABS: INR 1.03 (0.86-1.11)
[2025-07-14 14:47] LABS: A/G RATIO 0.9 (0.9-1.6); ALANINE AMINOTRANSFERASE,ALT 17.0 IU/L (14-63); ASPARTATE AMNIOTRANSFERASE,AST 14.0 IU/L (15-37); BILIRUBIN TOTAL 0.7 mg/dL (0.2-1.0); BLOOD UREA NITROGEN,BUN 14.0 mg/dL (7.0-18.0); CARBON DIOXIDE,CO2 26.8 mmol/L (21.0-32.0); CHLORIDE,CL 103.0 mmol/L (98-107); CREATININE 1.2 mg/dL (0.6-1.0); EST CRCL DRUG DOSING (CG) 40.86 mL/min; GLUCOSE RANDOM 209.0 mg/dL (74-106); POTASSIUM,K 3.4 mmol/L (3.5-5.1); PROTEIN TOTAL,TP 5.6 g/dL (6.4-8.2); SODIUM,NA 137.0 mmol/L (136-145)
[2025-07-14 14:48] LABS: ESTIMATED GFR 49.0 mL/min (>60)
[2025-07-14 14:54] LABS: PRO B-TYPE NATRIUR PEPT,BNPPRO 76 pg/mL (0-125)
[2025-07-14 15:12] LABS: IRON,FE 20.0 ug/dL (50-175); PERCENT FE SATURATION 8.93 % (20-55)
[2025-07-14] MEDS: droPERidol 2.5 MG/ML SDV IVPUSH ONE (15:14)
[2025-07-14 15:18] LABS: GLUCOSE,URINE NEGATIVE (NEGATIVE); OCCULT BLOOD,URINE NEGATIVE (NEGATIVE)
[2025-07-14 15:21] LABS: APPEARANCE,URINE HAZY
[2025-07-14 15:26] LABS: EPITHELIAL CELLS,URINE FEW (NONE-FEW)
[2025-07-14] MEDS: Iopamidol 755 Mg/ML 100 ML Bottle IVPUSH ONE (15:46)
[2025-07-14] MEDS: cefTRIAXone 2 GM in Water For Injection, Sterile 20 ML IVPUSH ONE (16:03)
[2025-07-14] MEDS: Ondansetron 4 MG Tab.DIS PO PRN (18:40)
[2025-07-14] MEDS: Ondansetron 4 MG/2 ML SDV IVPUSH PRN (19:15)
[2025-07-15 06:22] LABS: BASOPHILS ABSOLUTE AUTO 0.01 K/uL (0.00-0.20); BASOPHILS PERCENT AUTO 0.1 % (0.0-1.0); EOSINOPHILS ABSOLUTE AUTO 0.14 K/uL (0.00-0.45); EOSINOPHILS PERCENT AUTO 1.9 % (0.0-6.0); IMMATURE GRAN ABSOLUTE AUTO 0.03 K/uL (0.00-0.05); IMMATURE GRAN PERCENT AUTO 0.4 % (0.0-0.4); LYMPHOCYTES ABSOLUTE AUTO 0.48 K/uL (1.00-4.80); LYMPHOCYTES PERCENT AUTO 6.6 % (24.0-44.0); MEAN PLATELET VOLUME 9.6 fL (9.4-12.3); MONOCYTES ABSOLUTE AUTO 0.39 K/uL (0.00-0.80); MONOCYTES PERCENT AUTO 5.3 % (0.0-8.0); NEUTROPHILS ABSOLUTE AUTO 6.26 K/uL (1.80-7.70); NEUTROPHILS PERCENT AUTO 85.7 % (41.0-71.0); NRBC ABSOLUTE 0.00 K/uL (0.00-0.02); NRBC PERCENT 0.0 /100WBC (0.0-0.2); PLATELET COUNT,PLT 206 K/uL (150-400); RED BLOOD CELL COUNT 2.32 M/uL (4.10-5.30); WHITE BLOOD CELL COUNT,WBC 7.31 K/uL (3.9-11.3)
[2025-07-15 06:43] LABS: A/G RATIO 0.8 (0.9-1.6); ALANINE AMINOTRANSFERASE,ALT 22.0 IU/L (14-63); ASPARTATE AMNIOTRANSFERASE,AST 43.0 IU/L (15-37); BILIRUBIN TOTAL 0.2 mg/dL (0.2-1.0); BLOOD UREA NITROGEN,BUN 9.0 mg/dL (7.0-18.0); CARBON DIOXIDE,CO2 27.4 mmol/L (21.0-32.0); CHLORIDE,CL 109.0 mmol/L (98-107); CREATININE 0.9 mg/dL (0.6-1.0); EST CRCL DRUG DOSING (CG) 55.23 mL/min; GLUCOSE RANDOM 105.0 mg/dL (74-106); PHOSPHORUS 3.2 mg/dL (2.6-4.7); POTASSIUM,K 3.7 mmol/L (3.5-5.1); PROTEIN TOTAL,TP 4.6 g/dL (6.4-8.2); SODIUM,NA 142.0 mmol/L (136-145)
[2025-07-15 06:44] LABS: ESTIMATED GFR 69.0 mL/min (>60)
[2025-07-15] MEDS: Sucralfate Suspension 1 GM/10 ML Cup PO SCH (08:57)
[2025-07-15] MEDS: Prochlorperazine 10 MG/2 ML SDV IVPUSH PRN (08:57)
[2025-07-15] MEDS: Sodium Ferric Gluconate Cmplex 125 MG in Sodium Chloride 0.9% 100 ML IV SCH (11:32)
[2025-07-15] MEDS: cefTRIAXone 1 GM in Water For Injection, Sterile 10 ML IVPUSH SCH (20:36)
[2025-07-16 06:08] LABS: BASOPHILS ABSOLUTE AUTO 0.01 K/uL (0.00-0.20); BASOPHILS PERCENT AUTO 0.3 % (0.0-1.0); EOSINOPHILS ABSOLUTE AUTO 0.24 K/uL (0.00-0.45); EOSINOPHILS PERCENT AUTO 7.1 % (0.0-6.0); IMMATURE GRAN ABSOLUTE AUTO 0.01 K/uL (0.00-0.05); IMMATURE GRAN PERCENT AUTO 0.3 % (0.0-0.4); LYMPHOCYTES ABSOLUTE AUTO 0.51 K/uL (1.00-4.80); LYMPHOCYTES PERCENT AUTO 15.1 % (24.0-44.0); MEAN PLATELET VOLUME 9.9 fL (9.4-12.3); MONOCYTES ABSOLUTE AUTO 0.27 K/uL (0.00-0.80); MONOCYTES PERCENT AUTO 8.0 % (0.0-8.0); NEUTROPHILS ABSOLUTE AUTO 2.34 K/uL (1.80-7.70); NEUTROPHILS PERCENT AUTO 69.2 % (41.0-71.0); NRBC ABSOLUTE 0.00 K/uL (0.00-0.02); NRBC PERCENT 0.0 /100WBC (0.0-0.2); PLATELET COUNT,PLT 195 K/uL (150-400); RED BLOOD CELL COUNT 2.30 M/uL (4.10-5.30); WHITE BLOOD CELL COUNT,WBC 3.38 K/uL (3.9-11.3)
[2025-07-16 06:32] LABS: BLOOD UREA NITROGEN,BUN 3.0 mg/dL (7.0-18.0); CARBON DIOXIDE,CO2 31.2 mmol/L (21.0-32.0); CHLORIDE,CL 105.0 mmol/L (98-107); CREATININE 0.9 mg/dL (0.6-1.0); EST CRCL DRUG DOSING (CG) 55.23 mL/min; GLUCOSE RANDOM 79.0 mg/dL (74-106); POTASSIUM,K 3.4 mmol/L (3.5-5.1); SODIUM,NA 140.0 mmol/L (136-145)
[2025-07-16 06:33] LABS: ESTIMATED GFR 69.0 mL/min (>60)
[2025-07-16] MEDS: Potassium Chloride 20 MEQ Tab.ER PO ONE (10:26)
[2025-07-16] MEDS: FLU (Fluad Triv) 25-26 (65UP)/MF59C/PF 45 MCG/0.5 ML Syringe IM ONE (16:38)
== END 2025-07-16 16:45 | disposition home or self-care (01) ==
LOC: MW.ED 13:40 → MW.MS 16:20
PROVIDERS: ADMIT Internal Medicine; ATTEND Internal Medicine
DX: N39.0 Urinary tract infection, site not specified (principal); E86.0 Dehydration; C80.1 Malignant (primary) neoplasm, unspecified; R53.81 Other malaise; R06.02 Shortness of breath; D64.9 Anemia, unspecified; K21.9 Gastro-esophageal reflux disease without esophagitis; E78.00 Pure hypercholesterolemia, unspecified; I10 Essential (primary) hypertension; R53.1 Weakness; Z88.8 Allergy status to other drugs, medicaments and biological substances; Z79.899 Other long term (current) drug therapy; Z20.822 Contact with and (suspected) exposure to COVID-19
CPT/HCPCS: 36415; 36430; 71045; 74177; 80048; 80053; 81001; 83550; 83605; 83690; 83735; 83880; 84100; 84484; 85014; 85018; 85025; 85610; 85652; 86850; 86900; 86901; 86920; 87040; 87086; 87428; 90653; 93005; 96374; 96375; 99285; A4216; A9270; J0696; J0780; J1642; J1790; J2405; J2916; J7030; P9016; Q9967; 93010; 96361; 96365; 96376; 99222; 99239; G0378

== ENCOUNTER 2025-08-04 23:07 | Emergency (ER) | payer MEDICARE, OTHER ==
[2025-08-04] MEDS ORDERED: Sodium Chloride 0.9% 2.5 ML Syringe FLUSH PRN (23:10)
[2025-08-04] MEDS ORDERED: Sodium Chloride 0.9% 10 ML Syringe FLUSH PRN (23:10)
[2025-08-04] MEDS: Ondansetron 4 MG/2 ML SDV IVPUSH ONE (23:18)
[2025-08-04 23:45] LABS: BASOPHILS ABSOLUTE AUTO 0.03 K/uL (0.00-0.20); BASOPHILS PERCENT AUTO 0.2 % (0.0-1.0); EOSINOPHILS ABSOLUTE AUTO 0.02 K/uL (0.00-0.45); EOSINOPHILS PERCENT AUTO 0.1 % (0.0-6.0); IMMATURE GRAN ABSOLUTE AUTO 0.05 K/uL (0.00-0.05); IMMATURE GRAN PERCENT AUTO 0.4 % (0.0-0.4); LYMPHOCYTES ABSOLUTE AUTO 0.65 K/uL (1.00-4.80); LYMPHOCYTES PERCENT AUTO 4.6 % (24.0-44.0); MEAN PLATELET VOLUME 10.1 fL (9.4-12.3); MONOCYTES ABSOLUTE AUTO 0.67 K/uL (0.00-0.80); MONOCYTES PERCENT AUTO 4.7 % (0.0-8.0); NEUTROPHILS ABSOLUTE AUTO 12.69 K/uL (1.80-7.70); NEUTROPHILS PERCENT AUTO 90.0 % (41.0-71.0); NRBC ABSOLUTE 0.00 K/uL (0.00-0.02); NRBC PERCENT 0.0 /100WBC (0.0-0.2); PLATELET COUNT,PLT 188 K/uL (150-400); RED BLOOD CELL COUNT 2.05 M/uL (4.10-5.30); WHITE BLOOD CELL COUNT,WBC 14.11 K/uL (3.9-11.3)
[2025-08-04 23:59] LABS: INR 1.1 (0.86-1.11); PTT,PARTIAL THROMBOPLSTIN TIME 25.1 SEC (23.9-30.7)
[2025-08-05 00:06] LABS: A/G RATIO 1.1 (0.9-1.6); ALANINE AMINOTRANSFERASE,ALT 28.0 IU/L (14-63); ASPARTATE AMNIOTRANSFERASE,AST 24.0 IU/L (15-37); BILIRUBIN TOTAL 0.7 mg/dL (0.2-1.0); BLOOD UREA NITROGEN,BUN 45.0 mg/dL (7.0-18.0); CARBON DIOXIDE,CO2 24.2 mmol/L (21.0-32.0); CHLORIDE,CL 109.0 mmol/L (98-107); CREATININE 1.0 mg/dL (0.6-1.0); EST CRCL DRUG DOSING (CG) 39.16 mL/min; GLUCOSE RANDOM 108.0 mg/dL (74-106); POTASSIUM,K 4.3 mmol/L (3.5-5.1); PROTEIN TOTAL,TP 5.3 g/dL (6.4-8.2); SODIUM,NA 143.0 mmol/L (136-145)
[2025-08-05 00:09] LABS: LACTIC ACID 1.6 mmol/L (0.4-2.0)
[2025-08-05 00:12] LABS: ESTIMATED GFR 61.0 mL/min (>60)
[2025-08-05] MEDS: Iopamidol 755 MG/ML 500 ML Multipack Bottle IVPUSH ONE (00:45)
[2025-08-05 02:40] LABS: APPEARANCE,URINE CLEAR; GLUCOSE,URINE NEGATIVE (NEGATIVE); OCCULT BLOOD,URINE NEGATIVE (NEGATIVE)
[2025-08-05] MEDS ORDERED: Naloxone 0.4 MG/ML SDV IVPUSH PRN (05:31)
[2025-08-05] MEDS: Ondansetron 4 MG/2 ML SDV IVPUSH PRN (05:42)
[2025-08-05 07:20] LABS: MEAN PLATELET VOLUME 9.9 fL (9.4-12.3); NRBC ABSOLUTE 0.00 K/uL (0.00-0.02); NRBC PERCENT 0.0 /100WBC (0.0-0.2); PLATELET COUNT,PLT 157 K/uL (150-400); RED BLOOD CELL COUNT 2.55 M/uL (4.10-5.30); WHITE BLOOD CELL COUNT,WBC 9.94 K/uL (3.9-11.3)
[2025-08-05] MEDS: Ondansetron 4 MG/2 ML SDV IVPUSH ONE (10:17)
== END 2025-08-05 08:20 ==
LOC: MW.ED 23:07
DX: K92.0 Hematemesis (principal); K57.32 Diverticulitis of large intestine without perforation or abscess without bleeding; D62 Acute posthemorrhagic anemia; I10 Essential (primary) hypertension; E78.00 Pure hypercholesterolemia, unspecified; Z88.8 Allergy status to other drugs, medicaments and biological substances; Z79.899 Other long term (current) drug therapy
CPT/HCPCS: 36415; 74177; 80053; 83605; 83690; 83735; 85025; 85610; 85730; 86850; 86900; 86901; 86920; 96361; 96365; 96375; 99285; J2405; J7030; 36430; 81003; 85027; 99283; A9270-GY; J2270; J2543; P9016; Q9967